=== PATIENT | male | born 1940 | race Caucasian/White ===

== ENCOUNTER 2018-01-07 06:31 | Inpatient (IN) | payer OTHER, MEDICARE ==
[~2018-01-07] VITALS: Ht 172.7 cm; Wt 69.1 kg
[2018-01-07] VITALS (21 sets, daily range): BP systolic 103–175; BP diastolic 51–94; PULSE 58–110; RESP 14–30; TEMP 98.3–99; O2SAT 96–100
[2018-01-07] MEDS ORDERED: FERR325T18 PO (07:06)
[2018-01-07] MEDS ORDERED: ALPR.25 PO (07:06)
[2018-01-07] MEDS ORDERED: METO-426 PO (07:06)
[2018-01-07] MEDS ORDERED: METH1TAB29 PO (07:06)
[2018-01-07] MEDS ORDERED: CEFD300C PO (07:06)
[2018-01-07] MEDS ORDERED: BENA20TA4 PO (07:06)
[2018-01-07] MEDS ORDERED: DOXY8SUS PO (07:06)
[2018-01-07] MEDS ORDERED: ASPI-516 CHEW (07:06)
[2018-01-07] MEDS ORDERED: CLOP75TA PO (07:06)
[2018-01-07] MEDS ORDERED: MAGN400T2 PO (07:06)
[2018-01-07] MEDS ORDERED: TERA10CA3 PO (07:06)
[2018-01-07] MEDS ORDERED: SIMV20TA PO (07:06)
[2018-01-07] MEDS ORDERED: MIRTA15 PO (07:06)
[2018-01-07] MEDS ORDERED: ALLO300T2 PO (07:06)
--- NOTE | 2018-01-07 07:40 | PD ---
HPI Chief Complaint: Respiratory Distress Time Seen by Provider: 07:36 Travel History International Travel<30 days: No Contact w/Intl Traveler<30days: No Traveled to known affect area: No History of Present Illness HPI 77-year-old male patient presents to the ER from a facility, apparently they state that he was having low saturations and respiratory distress according to facility. Patient is obtunded not able to give me any further history. They apparently have put on a breathing mass that his saturations went up to 99%. Modifying Factors: None Associated Signs & Symptoms: Altered mental status, hypoxia, low saturations Risk Factors: None PFSH Past Medical History Medical History: Unable to Obtain Past Surgical History Surgical History: Unable to Obtain Social History Alcohol Use: No (LORENE) Tobacco Use: No Allergies-Medications (Allergen,Severity, Reaction): Coded Allergies: No Known Allergies (Unverified , 01/07/18) Reported Meds & Prescriptions Reported Meds & Active Scripts Active Reported Xanax (Alprazolam) 0.25 Mg Tab 0.25 Mg PO Q12HR PRN Metoprolol Tartrate 75 Mg Tab 75 Mg PO BID Medrol (Methylprednisolone) 2 Mg Tab 2 Mg PO DAILY Ferrous Sulfate 325 Mg (65 Mg Iron) Tablet 325 Mg PO BIDPC Doxycycline Monohydrate Liq 25 Mg/5 Ml Susp 100 Mg PO BID Cefdinir 300 Mg Cap 300 Mg PO BID Terazosin (Terazosin HCl) 10 Mg Cap 10 Mg PO HS Simvastatin 20 Mg Tab 20 Mg PO DAILY Mirtazapine 15 Mg Tab 15 Mg PO HS Magnesium Oxide 400 Mg Tab 400 Mg PO DAILY Clopidogrel (Clopidogrel Bisulfate) 75 Mg Tab 75 Mg PO DAILY Benazepril-Hydrochlorothiazide 20-25 Mg Tab 1 Tab PO DAILY Aspirin 81 Mg Chew 81 Mg CHEW DAILY Allopurinol 300 Mg Tab 300 Mg PO DAILY Review of Systems ROS Limitations: Altered Mental Status Physical Exam Narrative GENERAL: Well-developed elderly white male patient currently disoriented, lethargic, not able to give me much information. SKIN: Focused skin assessment warm/dry. HEAD: Atraumatic. Normocephalic. EYES: Pupils small, equal and round. No scleral icterus. No injection or drainage. ENT: No nasal bleeding or discharge. Mucous membranes pink and moist. NECK: Trachea midline. No JVD. CARDIOVASCULAR: Regular rate and rhythm. No murmur appreciated. RESPIRATORY: Mild accessory muscle use. Coarse bilaterally. Breath sounds equal bilaterally. GASTROINTESTINAL: Abdomen soft, non-tender, nondistended. Hepatic and splenic margins not palpable. MUSCULOSKELETAL: No obvious deformities. No clubbing. No cyanosis. No edema. NEUROLOGICAL: Lethargic, disoriented not following commands. Face is symmetrical, pupils are small, equal, poorly reactive to light bilaterally.. PSYCHIATRIC: Unable to assess Data Data Last Documented VS Vital Signs Date Time Temp Pulse Resp B/P (MAP) Pulse Ox O2 Delivery O2 Flow Rate FiO2 01/07/18 09:23 100 100 01/07/18 09:21 100 26 175/94 (121) Ventilator 01/07/18 09:11 15.00 01/07/18 06:36 98.3 Orders Orders Electrocardiogram (01/07/18 07:19) Ammonia (01/07/18 07:19) Complete Blood Count With Diff (01/07/18 07:19) Comprehensive Metabolic Panel (01/07/18 07:19) Troponin I (01/07/18 07:19) Urinalysis - C+S If Indicated (01/07/18 07:19) Lactic Acid Sepsis Protocol (01/07/18 07:19) Blood Culture (01/07/18 07:19) Chest, Single Ap (01/07/18 07:19) Blood Glucose (01/07/18 07:19) Ecg Monitoring (01/07/18 07:19) Iv Access Insert/Monitor (01/07/18 07:19) Oximetry (01/07/18 07:19) B-Type Natriuretic Peptide (01/07/18 08:02) Arterial Blood Gas (Abg) (01/07/18 08:02) Ct Brain W/O Iv Contrast(Rout) (01/07/18 08:02) Urinary Catheter Insert/Apply (01/07/18 08:34) Chest, Single Ap (01/07/18 08:44) Arterial Blood Gas (Abg) (01/07/18 08:44) Etomidate Inj (Amidate Inj) (01/07/18 08:45) Succinylcholine Inj (Quelicin Inj) (01/07/18 08:45) Sodium Chloride 0.9% Flush (Ns Flush) (01/07/18 08:45) Piperacil-Tazo 4.5 Gm Premix (Zosyn 4.5 (01/07/18 09:13) Azithromycin Inj (Zithromax Inj) (01/07/18 09:13) Sodium Chlor 0.9% 1000 Ml Inj (Ns 1000 M (01/07/18 09:45) Ct Thorax/ Chest Wo Iv Contras (01/07/18 09:43) Admit Order (Ed Use Only) (01/07/18 09:43) Propofol 200 Mg/20 Ml Inj (Diprivan 200 (01/07/18 09:45) Labs Laboratory Tests Test 01/07/18 06:40 01/07/18 08:01 01/07/18 08:30 01/07/18 09:10 White Blood Count 17.7 TH/MM3 Red Blood Count 3.02 MIL/MM3 Hemoglobin 9.2 GM/DL Hematocrit 28.9 % Mean Corpuscular Volume 95.7 FL Mean Corpuscular Hemoglobin 30.4 PG Mean Corpuscular Hemoglobin Concent 31.8 % Red Cell Distribution Width 17.9 % Platelet Count 524 TH/MM3 Mean Platelet Volume 9.1 FL Neutrophils (%) (Auto) 91.5 % Lymphocytes (%) (Auto) 1.6 % Monocytes (%) (Auto) 6.3 % Eosinophils (%) (Auto) 0.2 % Basophils (%) (Auto) 0.4 % Neutrophils # (Auto) 16.2 TH/MM3 Lymphocytes # (Auto) 0.3 TH/MM3 Monocytes # (Auto) 1.1 TH/MM3 Eosinophils # (Auto) 0.0 TH/MM3 Basophils # (Auto) 0.1 TH/MM3 CBC Comment AUTO DIFF Differential Total Cells Counted 100 Neutrophils % (Manual) 81 % Band Neutrophils % 9 % Monocytes % 5 % Neutrophils # (Manual) 16.8 TH/MM3 Metamyelocytes 4 % Myelocytes 1 % Nucleated Red Blood Cells 5 /100 WBC Differential Comment FINAL DIFF MANUAL Toxic Granulation 2+ Platelet Estimate HIGH Platelet Morphology Comment NORMAL Blood Urea Nitrogen 37 MG/DL Creatinine 1.82 MG/DL Random Glucose 91 MG/DL Total Protein 5.8 GM/DL Albumin 2.3 GM/DL Calcium Level 8.9 MG/DL Alkaline Phosphatase 129 U/L Aspartate Amino Transf (AST/SGOT) 32 U/L Alanine Aminotransferase (ALT/SGPT) 28 U/L Total Bilirubin 0.2 MG/DL Sodium Level 146 MEQ/L Potassium Level 4.2 MEQ/L Chloride Level 104 MEQ/L Carbon Dioxide Level 32.7 MEQ/L Anion Gap 9 MEQ/L Estimat Glomerular Filtration Rate 36 ML/MIN Troponin I 0.28 NG/ML Lactic Acid Level 0.8 mmol/L Ammonia 36 MCMOL/L Blood Gas Puncture Site RT RADIAL Blood Gas Patient Temperature 98.6 Blood Gas HCO3 34 mmol/L Blood Gas Base Excess 5.0 mmol/L Blood Gas Oxygen Saturation 92 % Arterial Blood pH 7.14 Arterial Blood Partial Pressure CO2 103 mmHg Arterial Blood Partial Pressure O2 89 mmHG Arterial Blood Oxygen Content 11.6 Vol % Arterial Blood Carboxyhemoglobin 1.0 % Arterial Blood Methemoglobin 0.6 % Blood Gas Hemoglobin 8.9 G/DL Oxygen Delivery Device BiPAP Blood Gas Liter Flow 15 L/M Blood Gas Ventilator Setting NR Urine Color YELLOW Urine Turbidity HAZY Urine pH 5.5 Urine Specific [place] 1.019 Urine Protein 100 mg/dL Urine Glucose (UA) NEG mg/dL Urine Ketones TRACE mg/dL Urine Occult Blood TRACE Urine Nitrite NEG Urine Bilirubin NEG Urine Urobilinogen LESS THAN 2.0 MG/DL Urine Leukocyte Esterase NEG Urine RBC LESS THAN 1 /hpf Urine WBC 2 /hpf Urine Squamous Epithelial Cells 1 /hpf Urine Bacteria OCC /hpf Urine Hyaline Casts 9 /lpf Urine Granular Casts 3 /lpf Urine Mucus FEW /lpf Microscopic Urinalysis Comment CATH-CULTURE IND MDM Medical Decision Making Medical Screen Exam Complete: Yes Emergency Medical Condition: Yes Medical Record Reviewed: Yes Interpretation(s) EKG shows sinus tachycardia rate of 100 bpm with no signs of acute ST elevations or depressions. Laboratory Tests Test 01/07/18 06:40 01/07/18 08:01 01/07/18 08:30 01/07/18 09:10 White Blood Count 17.7 TH/MM3 (4.0-11.0) Red Blood Count 3.02 MIL/MM3 (4.50-5.90) Hemoglobin 9.2 GM/DL (13.0-17.0) Hematocrit 28.9 % (39.0-51.0) Mean Corpuscular Hemoglobin Concent 31.8 % (32.0-36.0) Red Cell Distribution Width 17.9 % (11.6-17.2) Platelet Count 524 TH/MM3 (150-450) Neutrophils (%) (Auto) 91.5 % (16.0-70.0) Lymphocytes (%) (Auto) 1.6 % (9.0-44.0) Neutrophils # (Auto) 16.2 TH/MM3 (1.8-7.7) Lymphocytes # (Auto) 0.3 TH/MM3 (1.0-4.8) Monocytes # (Auto) 1.1 TH/MM3 (0-0.9) Neutrophils % (Manual) 81 % (16-70) Band Neutrophils % 9 % (0-6) Neutrophils # (Manual) 16.8 TH/MM3 (1.8-7.7) Metamyelocytes 4 % (0-1) Myelocytes 1 % (0-0) Nucleated Red Blood Cells 5 /100 WBC (0-0) Toxic Granulation 2+ (NORMAL) Platelet Estimate HIGH (NORMAL) Blood Urea Nitrogen 37 MG/DL (7-18) Creatinine 1.82 MG/DL (0.60-1.30) Total Protein 5.8 GM/DL (6.4-8.2) Albumin 2.3 GM/DL (3.4-5.0) Alkaline Phosphatase 129 U/L (45-117) Sodium Level 146 MEQ/L (136-145) Carbon Dioxide Level 32.7 MEQ/L (21.0-32.0) Estimat Glomerular Filtration Rate 36 ML/MIN (>89) Troponin I 0.28 NG/ML (0.02-0.05) Ammonia 36 MCMOL/L (11-32) Blood Gas HCO3 34 mmol/L (22-26) Blood Gas Base Excess 5.0 mmol/L (-2-2) Arterial Blood pH 7.14 (7.380-7.420) Arterial Blood Partial Pressure CO2 103 mmHg (38-42) Arterial Blood Oxygen Content 11.6 Vol % (12.0-20.0) Blood Gas Hemoglobin 8.9 G/DL (12.0-16.0) Urine Turbidity HAZY (CLEAR) Urine Protein 100 mg/dL (NEG-TRACE) Urine Ketones TRACE mg/dL (NEG) Urine Occult Blood TRACE (NEG) Urine Bacteria OCC /hpf (NONE) Urine Mucus FEW /lpf (OCC) Differential Diagnosis Altered mental status, respiratory distress: COPD exacerbation versus pneumonia versus sepsis versus dehydration versus metabolic issues versus overmedication Narrative Course On initial evaluation, I see 3 round medication patches on the patient's right shoulder and chest wall, there were labeled with the #135. It is unclear how long these have been there and have removed the metastases precaution since they could be medication patches that is causing some his disorientation. Patient's daughter and arrived in the ER and states that he had recently been released from [facility] to rehab 36 hours before, apparently had been admitted for pneumonia, patient has T-cell lymphoma that is currently being evaluated. He had a port put in 3 weeks ago and apparently had anemia as well. He has been doing poorly at the rehab facility, they did not think that he was completely over his pneumonia. Chest x-ray returned showing bilateral pneumonia. His ABG is very concerning for hypercapnia and shows respiratory acidosis. Patient was intubated for airway protection. IV antibiotics were initiated. Case was discussed with Dr. Gonzalez for admission for further treatment in the critical care unit. Aggregate critical care time was 35 minutes. Time to perform other separately billable procedures was not included in the critical care time. My time did not include minutes spent treating any other patients simultaneously or on activities that did not directly contribute to the patient's treatment. The services I provided to this patient were to treat and/or prevent clinically significant deterioration that could result in: Respiratory arrest, septic shock , I provided critical care services requiring my management, as noted below: Chart data review, documentation time, medication orders and management, vital sign assessments/reviewing monitor data, ordering and reviewing lab tests, ordering and interpreting/reviewing x-rays and diagnostic studies, care of the patient and discussion of the patient with the admitting physicians. Procedures Procedure Narrative After the risks and benefits were discussed the following procedure was performed: INTUBATION: The patient was put in optimal position for the procedure. Rapid sequence intubation was initiated by me using 20 milligrams of etomidate IV and 100 milligrams of succinylcholine IV. The patient was intubated with a 7.5 cuffed endotracheal tube. Tube placement was confirmed by visualization of the tube and balloon passing through the cords, capnometry and subsequent chest x- ray. Breath sounds were equal and well aerated bilaterally postintubation. No breath sounds over stomach. Patient tolerated procedure well. Diagnosis Primary Impression: Bilateral pneumonia Additional Impressions: Severe sepsis Respiratory acidosis Endotracheally intubated Admitting Information Admitting Physician Requests: Admit Soontharothai,Rewadee MD Jan 07, 2018 07:40
--- NOTE | 2018-01-07 07:51 | RADRPT ---
EXAM DATE/TIME: 01/07/2018 07:26 [facility] COMPARISON: No previous studies available for comparison. INDICATIONS : Shortness of breath. MEDICAL HISTORY : None. SURGICAL HISTORY : Infusaport. ENCOUNTER: Initial ACUITY: 1 day PAIN SCORE: Non-responsive. LOCATION: Bilateral chest FINDINGS: Left subclavian Ryesbi-u-Clww has its tip in junction superior vena cava and right atrium. Bibasilar patchiness is noted consistent with probable pneumonia. Small right pleural effusion is noted the hea rt is mildly prominent. CONCLUSION: 1. Bibasilar patchiness consistent with probable pneumonia. Clinical correlation is recommended. 2. Small right pleural effusion. 3. Mild cardiomegaly. Fabian Villegas MD on January 07, 2018 at 7:41 Board Certified Radiologist. This report was verified electronically.
[2018-01-07 08:15] LABS: AUTOMATED NEUTROPHIL # 16.2 TH/MM3 (1.8-7.7); BASOPHIL # 0.1 TH/MM3 (0-0.2); BASOPHIL % 0.4 % (0.0-2.0); EOSINOPHIL % 0.2 % (0.0-4.0); HEMATOCRIT 28.9 % (39.0-51.0); HEMOGLOBIN 9.2 GM/DL (13.0-17.0); LYMPH % 1.6 % (9.0-44.0); LYMPHOCYTE # 0.3 TH/MM3 (1.0-4.8); MEAN CELL VOLUME 95.7 FL (80.0-100.0); MEAN CORPUSCULAR HEMOGLOBIN 30.4 PG (27.0-34.0); MEAN CORPUSCULAR HGB CONC 31.8 % (32.0-36.0); MEAN PLATELET VOLUME 9.1 FL (7.0-11.0); MONO % 6.3 % (0.0-8.0); MONOCYTE # 1.1 TH/MM3 (0-0.9); NEUT % 91.5 % (16.0-70.0); PLATELET COUNT 524 TH/MM3 (150-450); RED BLOOD COUNT 3.02 MIL/MM3 (4.50-5.90); RED CELL DISTRIBUTION WIDTH 17.9 % (11.6-17.2); WHITE BLOOD COUNT 17.7 TH/MM3 (4.0-11.0)
[2018-01-07 08:36] LABS: ALBUMIN 2.3 GM/DL (3.4-5.0); AST (GOT) 32 U/L (15-37); BICARBONATE 32.7 MEQ/L (21.0-32.0); BLOOD UREA NITROGEN 37 MG/DL (7-18); CALCIUM 8.9 MG/DL (8.5-10.1); CHLORIDE 104 MEQ/L (98-107); CREATININE 1.82 MG/DL (0.60-1.30); GLOMERULAR FILTRATION RATE 36 ML/MIN (>89); GLUCOSE,RANDOM 91 MG/DL (74-106); SODIUM (NA) 146 MEQ/L (136-145)
[2018-01-07 08:40] LABS: ALKALINE PHOSPHATASE 129 U/L (45-117); ALT (GPT) 28 U/L (12-78); TOTAL BILIRUBIN ADULT 0.2 MG/DL (0.2-1.0); TOTAL PROTEIN 5.8 GM/DL (6.4-8.2); TROPONIN I 0.28 NG/ML (0.02-0.05)
[2018-01-07] MEDS ORDERED: SUCCINYLCHOLINE CHLORIDE 200 MG/10 ML VIAL IV PUSH ONE (08:45)
[2018-01-07] MEDS ORDERED: ETOMIDATE 20 MG/10 ML VIAL IVP ONE (08:45)
[2018-01-07 08:58] LABS: BANDS 9 % (0-6); CORRECTED NUCLEATED RBC 5 /100 WBC (0-0); METAMYELOCYTES 4 % (0-1); MONOCYTES 5 % (0-8); MYELOCYTES 1 % (0-0); NEUTROPHIL # MANUAL DIFF 16.8 TH/MM3 (1.8-7.7); NUCLEATED RED BLOOD CELL 5 (0-0); POLYS (SEG NEUTROPHILS) 81 % (16-70); TOXIC GRANULATION 2+ (NORMAL)
[2018-01-07] MEDS: SODIUM CHLORIDE 0.9% FLUSH 10 ML FLUSH IVF PRN (09:05)
[2018-01-07] MEDS ORDERED: PIPERACIL-TAZO 4.5 GM PREMIX 100 ML IV STA (09:13)
[2018-01-07] MEDS ORDERED: AZITHROMYCIN INJ 500 MG in SODIUM CHLOR 0.9% 250 ML INJ 250 ML IV STA (09:13)
--- NOTE | 2018-01-07 09:40 | RADRPT ---
EXAM DATE/TIME: 01/07/2018 09:26 [facility] COMPARISON: CHEST SINGLE AP, January 07, 2018, 7:26. INDICATIONS : Post intubation. MEDICAL HISTORY : None. SURGICAL HISTORY : Infusaport. ENCOUNTER: Subsequent ACUITY: 1 day PAIN SCORE: Non-responsive. LOCATION: Bilateral chest FINDINGS: An endotracheal tube has its tip 3 cm above the nelson. A nasogastric has in the stomach. Left subcla vian Vweoft-n-Zwnu has its tip in the superior vena cava. Small right pleural effusion is noted. Biba silar atelectasis and/or infiltrates are stable. The heart is enlarged. CONCLUSION: Small right pleural effusion. Bibasilar atelectasis and/or infiltrate. Cardiomegaly. Fabian Villegas MD on January 07, 2018 at 9:36 Board Certified Radiologist. This report was verified electronically.
[2018-01-07] MEDS ORDERED: DEXTROSE 50% IN WATER 50 ML VIAL(D50) IV PUSH PRN (09:45)
[2018-01-07] MEDS ORDERED: PROPOFOL 200 MG/20 ML AMP IV ONE (09:45)
[2018-01-07] MEDS ORDERED: GLUCAGON 1 MG/ML VIAL OTHER PRN (09:45)
[2018-01-07] MEDS ORDERED: CHLORHEXIDINE GLUCONATE 2 % 1 PACK (2 CLOTHS) TOP PRN (09:45)
[2018-01-07] MEDS ORDERED: SENNOSIDES 8.6 MG TAB PO PRN (09:45)
[2018-01-07] MEDS ORDERED: SODIUM CHLOR 0.9% 1000 ML INJ 1,000 ML IV ONE ×2 (09:45→10:15)
[2018-01-07] MEDS ORDERED: MAGNESIUM HYDROXIDE SUSP 30 ML CUP PO PRN (09:45)
[2018-01-07] MEDS: FAMOTIDINE 20 MG/2 ML VIAL IV PUSH SCH ×2 (09:45→19:59)
[2018-01-07] MEDS ORDERED: VANCOMYCIN INJ 1,000 MG in SODIUM CHLOR 0.9% 250 ML INJ 250 ML IV SCH (09:45)
[2018-01-07] MEDS ORDERED: MISCELLANEOUS NURSING INFORMATION XX SCH (09:45)
[2018-01-07] MEDS ORDERED: BISACODYL 10 MG SUPP RECTAL PRN (09:45)
[2018-01-07] MEDS ORDERED: LACTULOSE SYRUP 20 GM/30 ML CUP PO PRN (09:45)
[2018-01-07] MEDS ORDERED: SODIUM CHLOR 0.9% 1000 ML INJ 1,000 ML IV SCH (10:00)
[2018-01-07] MEDS: INSULIN NovoLIN REGULAR SUPPLEMENTAL SCALE SQ SCH ×3 (10:00→22:00)
[2018-01-07 10:07] LABS: BACTERIA, URINE OCC /hpf; BILIRUBIN, URINE NEG (NEG); BLOOD, URINE TRACE (NEG); GLUCOSE,URINE NEG (NEG); HYALINE CAST, URINE 9 /lpf (RARE); KETONE, URINE TRACE mg/dL (NEG); MUCUS URINE FEW /lpf (OCC); NITRITE,URINE NEG (NEG); PH, URINE 5.5 (5.0-8.5); SQUAMOUS EPITHELIAL CELL URINE 1 /hpf (0-5); URINE COLOR YELLOW (YELLW/STRAW); URINE LEUKOCYTE ESTERASE NEG (NEG)
[2018-01-07] MEDS: RESP: ALBUTEROL 2.5 MG/IPRATROPIUM 0.5 MG NEB (SCH) INH ×3 (10:23→21:00)
[2018-01-07] MEDS ORDERED: Vancomycin Consult Pharmacy 1 EA OTHER SCH (10:30)
[2018-01-07] MEDS ORDERED: VANCOMYCIN 1,500 MG/NS 500 ML IV ONE ×2 (10:30)
[2018-01-07] MEDS ORDERED: ASPIRIN 325 MG TAB PO ONE (11:00)
--- NOTE | 2018-01-07 11:06 | MH ---
cc: Juju Mendez MD DATE OF ADMISSION: 01/07/2018 HISTORY OF PRESENT ILLNESS: The patient is a 77-year-old male with a past medical history of coronary artery disease, hypertension, hyperlipidemia, BPH and lymphoma, on radiation treatment and chemotherapy. He presented to [facility] ED from a rehab facility for lethargy, hypoxemia, and low saturation. Initially, he was placed on a BiPAP and ABG was performed, which showed acute hypercapnic respiratory failure with a pH of 7.14, CO2 of 103, PaO2 of 89, bicarbonate 34, and saturation 92%. He was subsequently intubated with etomidate, succinylcholine, and placed on full mechanical ventilation. A chest x-ray in the ER showed bibasilar patchiness and small right pleural effusion. According to the patient's family, he underwent a blood transfusion on 01/12/2018 after he received his first cycle of chemotherapy and then shortly after he was readmitted in [place] for fever, pneumonia and sepsis. The patient was eventually discharged to a rehab facility. There is no history of home oxygen or use of bronchodilators. The patient quit smoking in October and used to smoke a pack and half a day for about 60 years. His laboratory data is significant for leukocytosis with a WBC of 17.7, acute kidney injury with a creatinine of 1.82. His lactic acid level measured at 0.8. Chest x-ray post-intubation showed ET tube above the nelson, left subclavian Infusaport in place, bibasilar atelectasis and/or infiltrate and small right pleural effusion. When seen, the patient is sedated with Diprivan and on full mechanical ventilation. His blood pressure 175/94 with a pulse of 100. The patient is afebrile. PAST MEDICAL HISTORY: Significant for coronary artery disease, hypertension, hyperlipidemia, BPH, and lymphoma. PAST SURGICAL HISTORY: Previous 3 coronary stent placements approximately 4 years ago, previous TURP, previous bone marrow biopsy, and previous teeth removal. FAMILY HISTORY: Father with lymphoma at age 78. SOCIAL HISTORY: The patient quit smoking in October, used to smoke a pack and half a day for about 60 years. He quit drinking 8 years ago. ALLERGIES: NO KNOWN DRUG ALLERGIES. MEDICATIONS: Reported medications include Xanax, Lopressor, Medrol Dosepak, ferrous sulfate, simvastatin, magnesium, plavix, and aspirin. REVIEW OF SYSTEMS: As per HPI. Rest of review of systems limited, as the patient is intubated. PHYSICAL EXAMINATION: GENERAL: This is a 77-year-old male, intubated for respiratory failure. VITAL SIGNS: Temperature 98.3, pulse of 100, respiratory rate 26, blood pressure 175/94, saturation 100%. Vent settings: PRVC, rate of 14, tidal volume 500, I-time 1.0, PEEP of 5, FiO2 of 100%. HEENT: Atraumatic, normocephalic. Pupils are equal, round, reactive to light and accommodation. Extraocular muscles intact. Conjunctivae pink. Nonicteric sclerae. Oral mucosa within normal. NECK: Supple. No JVD, adenopathy, or thyromegaly. Trachea in the midline. CARDIOVASCULAR: Tachycardic. Normal S1, S2. No murmurs, rubs or gallops noted. LUNGS: Bilateral equal air entry with a few coarse breath sounds. ABDOMEN: Soft, nontender. No distention. Positive bowel sounds. EXTREMITIES: No cyanosis, clubbing, or edema. NEUROLOGIC: Intubated and sedated. LABORATORY DATA: ABG on BiPAP showed a pH of 7.14, CO2 of 103, PaO2 of 89, saturation 92%. Sodium 146, potassium 4.2, chloride 104, CO2 of 32, BUN 37, creatinine 1.82, glucose 91. Lactic acid 0.8. Ammonia level 36. Troponin 0.28. Albumin 2.3. WBC 17.7, hemoglobin 9.2, hematocrit 28, platelet count 524. Urinalysis: Occasional bacteria, trace ketones, negative leukocyte esterase, negative nitrite. RADIOGRAPHIC STUDIES: Chest x-ray showed bibasilar atelectasis and/or infiltrates with small effusion. IMPRESSION: 1. Acute hypoxemic and hypercapnic respiratory failure. 2. Healthcare-associated pneumonia. 3. Acute kidney injury. 4. Lymphoma. 5. Elevated troponins. 6. Leukocytosis. 7. Anemia. 8. History of hypertension. 9. History of coronary artery disease. 10. Hyperlipidemia. 11. History of benign prostatic hyperplasia. RECOMMENDATIONS: 1. Continue with Diprivan infusion for sedation and vent synchrony. Daily sedation vacation when appropriate. The patient is scheduled to undergo scan of the brain ordered by ED. 2. Continue with vent support and maintain sats above 92%. 3. Bronchodilators in the form of DuoNeb q.[address] on Solu-Medrol 40 mg IV q.12 hours. 4. We will initiate ICU vent bundle. Increase respiratory rate to 18 and check ABG post-intubation. 5. We will obtain a CT scan of the chest without contrast for further evaluation of pulmonary parenchyma. 6. Monitor renal function, I's and O's and avoid nephrotoxins. Electrolyte replacement as needed. We will give 1 liter bolus of NS followed by maintenance fluids D5 NS at 100 mL an hour. 7. Place on Pepcid 10 mg IV q.12 hours. We will consult GI service as the patient noted to have coffee-ground emesis and he received blood transfusions back on 12/23/2017. We will keep him n.p.o. for now and continue with IV fluids as stated above. 8. Monitor CBC and will check a coagulation profile. Transfuse if hemoglobin less than 7. 9. Monitor cardiac enzymes with troponins and we will obtain a 2D echo to evaluate LV function. We will give 1 dose of aspirin. 10. Place on broad spectrum antibiotics in form of vancomycin, Zosyn and azithromycin. Monitor for signs of infection which include fever and WBC. Follow up on blood cultures. In addition, we will check sputum culture with Gram stain, Strep pneumonia, legionella urinary antigen. Check nasal washing to rule out influenza. 11. Consult Medical Oncology service as the patient recently had chemotherapy and radiation treatment. We will obtain CT abdomen and pelvis without contrast. 12. Place on sliding scale insulin with Accu-Cheks for glycemic control as the patient will be on IV steroids. 13. Gastrointestinal prophylaxis with Pepcid and DVT prophylaxis with SCDs for now. 14. Lines: He has a left subclavian Infusaport and peripheral IVs. 15. Further recommendations will be based on hospital course. MD PIERCE Carter/JP , 10:30 AM , 11:05 AM
--- NOTE | 2018-01-07 11:21 | RADRPT ---
EXAM DATE/TIME: 01/07/2018 10:53 [facility] COMPARISON: No previous studies available for comparison. INDICATIONS : Altered mental status, hypoxia. RADIATION DOSE: 47.66 CTDIvol (mGy) MEDICAL HISTORY : Non-responsive. SURGICAL HISTORY : Non-responsive. ENCOUNTER: Initial ACUITY: 1 day PAIN SCALE: Non-responsive LOCATION: cranial TECHNIQUE: Multiple contiguous axial images were obtained of the head. Using automated exposure control and adj ustment of the mA and/or kV according to patient size, radiation dose was kept as low as reasonably a chievable to obtain optimal diagnostic quality images. DICOM format image data is available electro nically for review and comparison. FINDINGS: CEREBRUM: The ventricles are normal for age. No evidence of midline shift, mass lesion, hemorrhage or acute in farction. No extra-axial fluid collections are seen. POSTERIOR FOSSA: The cerebellum and brainstem are intact. The 4th ventricle is midline. The cerebellopontine angle i s unremarkable. EXTRACRANIAL: The visualized portion of the orbits is intact. Moderate mucosal thickening is noted involving the ma xillary and ethmoid sinuses bilaterally. SKULL: The calvaria is intact. No evidence of skull fracture. CONCLUSION: 1. No acute intracranial abnormality. 2. Moderate mucosal thickening involving the maxillary and ethmoid sinuses bilaterally. Fabian Villegas MD on January 07, 2018 at 11:16 Board Certified Radiologist. This report was verified electronically.
--- NOTE | 2018-01-07 11:29 | RADRPT ---
EXAM DATE/TIME: 01/07/2018 10:59 [facility] COMPARISON: CT THORAX W/O CONTRAST, January 07, 2018, 10:59. INDICATIONS : Coffee ground emesis, leukocytosis. ORAL CONTRAST: No oral contrast ingested. RADIATION DOSE: 13.68 CTDIvol (mGy) ; Combined studies - Thorax/Abdomen/Pelvis MEDICAL HISTORY : Lymphoma. SURGICAL HISTORY : Non-responsive. ENCOUNTER: Initial ACUITY: 1 day PAIN SCALE: Non-responsive LOCATION: lower quadrant TECHNIQUE: Volumetric scanning of the abdomen and pelvis was performed. Using automated exposure control and ad justment of the mA and/or kV according to patient size, radiation dose was kept as low as reasonably achievable to obtain optimal diagnostic quality images. DICOM format image data is available electro nically for review and comparison. FINDINGS: LOWER LUNGS: There is a 7 mm and noncalcified nodule within the left lower lobe laterally. Bibasilar atelectasis i s noted. Small right pleural effusion is noted. LIVER: There is a lobulated low density lesion within the right lobe of liver measuring 4.1 x 2.6 cm which i s indeterminate on this unenhanced examination. Outpatient MRI of the abdomen with contrast may be h elpful for further assessment of this finding. There is no dilation of the biliary tree. Sludge layer s within the gallbladder. SPLEEN: Normal size without lesion. PANCREAS: Within normal limits. KIDNEYS: Normal in size and shape. There is no solid mass, stone, or hydronephrosis. There is a 4 cm lower po le right renal cyst. ADRENAL GLANDS: Within normal limits. VASCULAR: There is no aortic aneurysm. BOWEL/MESENTERY: Uncomplicated colonic diverticulosis is noted. No acute diverticulitis is noted. ABDOMINAL WALL: Within normal limits. RETROPERITONEUM: There is no lymphadenopathy. BLADDER: The bladder is collapsed and contains a Lugo catheter. REPRODUCTIVE: The prostate gland is enlarged. INGUINAL: There is no lymphadenopathy or hernia. MUSCULOSKELETAL: Degenerative changes and scoliosis of the thoracolumbar spine are noted. CONCLUSION: 1. Small right pleural effusion with adjacent compressive atelectasis. 2. 7 mm noncalcified nodule within the left lower lobe which is indeterminate. 3. 4.1 x 2.6 cm lobulated low density lesion within the right lobe of liver which is indeterminate on this unenhanced examination. Outpatient MRI of the abdomen with contrast may be helpful for further characterization of this finding. 4. 4 cm lower pole right renal cyst. 5. Degenerative changes and scoliosis of the thoracolumbar spine. 6. Enlarged prostate. 7. Uncomplicated colonic diverticulosis. 8. Gallbladder sludge. Fabian Villegas MD on January 07, 2018 at 11:18 Board Certified Radiologist. This report was verified electronically.
--- NOTE | 2018-01-07 11:43 | RADRPT ---
EXAM DATE/TIME: 01/07/2018 10:59 [place] COMPARISON: No previous studies available for comparison. INDICATIONS : Respiratory distress, hypoxia. RADIATION DOSE: 13.68 CTDIvol (mGy) ; Combined studies - Thorax/Abdomen/Pelvis MEDICAL HISTORY : Lymphoma. SURGICAL HISTORY : Non-responsive. ENCOUNTER: Initial ACUITY: 1 day PAIN SCALE: Non-responsive LOCATION: chest TECHNIQUE: Volumetric scanning of the chest was performed. Using automated exposure control and adjustment of t he mA and/or kV according to patient size, radiation dose was kept as low as reasonably achievable to obtain optimal diagnostic quality images. DICOM format image data is available electronically for r eview and comparison. Follow-up recommendations for detected pulmonary nodules are based at a minimum on nodule size and pa tient risk factors according to Fleischner Society Guidelines. FINDINGS: A small right pleural effusion with adjacent compressive atelectasis is noted. Tiny left pleural effu erick is noted. There is a 7 mm noncalcified nodule within the left lower lobe laterally which is inde terminate. Followup CT of the chest in 6 months would be helpful to confirm stability of this finding . Scattered discoid atelectasis is noted bilaterally. There is a right axillary fluid collection xiomara uring 6.0 x 3.1 x 4.3 cm consistent with possible seroma if the patient has had surgery in this locat ion. Scattered right axillary lymphadenopathy is noted with the largest lymph node measuring 16 mm. C oronary artery calcifications are noted. No mediastinal, hilar or left axillary lymphadenopathy is no latricia. Degenerative changes are noted throughout the thoracic spine. CONCLUSION: 1. Small right pleural effusion with adjacent compressive atelectasis. 2. Tiny left pleural effusion. 3. 7 mm noncalcified nodule within the left lower lobe laterally which is indeterminate. Followup CT the chest in 6 months would be helpful to confirm stability of this finding. 4. Scattered discoid atelectasis bilaterally. 5. Right axillary fluid collection measuring 6.0 x 3.1 x 4.3 cm consistent with possible seroma if th e patient has had surgery in this location. 6. Right axillary lymphadenopathy with the largest lymph node measuring 16 mm. 7. Coronary artery calcifications. Fabian Villegas MD on January 07, 2018 at 11:36 Board Certified Radiologist. This report was verified electronically.
[2018-01-07] MEDS ORDERED: DIATRIZOATE MEGLUM/DIATRIZOATE SOD 9 ML CUP PO ONE (12:00)
--- NOTE | 2018-01-07 13:57 | PD.CONS ---
HPI History of Present Illness This is a 77 year old M with PMH significant for CAD, HTN, hyperlipidemia, BPH, lymphoma on radiation and chemotherapy. Pt currently intubated in [facility], no family present, history obtained through chart review. Pt was brought to the ED from a rehab facility for lethargy and hypoxemia. ABG revealed hypercapnic respiratory failure and therefore required intubated. Pt currently on mechanical ventilation with FiO2 of 100%. Our service has been consulted to evaluate pt for anemia and rule out possibility of GIB. Per RN there has been no reports of GIB. Pt has not had a BM since arrival, OGT to [facility] with no secretions coming out. Unsure if pt has a history of anemia, no previous records from [facility]. According to [facility] notes, pt received a previous blood transfusion after chemo treatment, unknown date. Attempted to call [place], pts spouse listed as contact, however was unable to get in contact with her. Unsure of further history including whether pt has ever had EGD or colonoscopy. (Arlen Medeiros) [facility] Coded Allergies: No Known Allergies (Unverified , 01/07/18) Review of Systems Unable to obtain (Arlen Medeiros) GI Exam Vitals I&O Vital Signs Date Time Temp Pulse Resp B/P (MAP) Pulse Ox O2 Delivery O2 Flow Rate FiO2 01/07/18 11:26 100 100 01/07/18 11:20 95 16 110/62 (78) 100 01/07/18 11:16 100 100 01/07/18 10:44 98 18 157/71 (99) 100 Ventilator 15.00 100 01/07/18 10:25 98 15 135/65 (88) 100 Ventilator 15.00 100 01/07/18 09:23 100 100 01/07/18 09:21 100 26 175/94 (121) 100 Ventilator 100 01/07/18 09:11 106 100 Ventilator 15.00 100 01/07/18 09:00 104 23 137/63 (87) 96 Non-Rebreather 100 01/07/18 08:00 106 30 135/65 (88) 100 Non-Rebreather 100 01/07/18 06:36 98.3 110 24 135/70 (91) 99 Laboratory Test 01/07/18 06:40 01/07/18 08:01 01/07/18 08:30 01/07/18 09:10 White Blood Count 17.7 TH/MM3 Red Blood Count 3.02 MIL/MM3 Hemoglobin 9.2 GM/DL Hematocrit 28.9 % Mean Corpuscular Volume 95.7 FL Mean Corpuscular Hemoglobin 30.4 PG Mean Corpuscular Hemoglobin Concent 31.8 % Red Cell Distribution Width 17.9 % Platelet Count 524 TH/MM3 Mean Platelet Volume 9.1 FL Neutrophils (%) (Auto) 91.5 % Lymphocytes (%) (Auto) 1.6 % Monocytes (%) (Auto) 6.3 % Eosinophils (%) (Auto) 0.2 % Basophils (%) (Auto) 0.4 % Neutrophils # (Auto) 16.2 TH/MM3 Lymphocytes # (Auto) 0.3 TH/MM3 Monocytes # (Auto) 1.1 TH/MM3 Eosinophils # (Auto) 0.0 TH/MM3 Basophils # (Auto) 0.1 TH/MM3 CBC Comment AUTO DIFF Differential Total Cells Counted 100 Neutrophils % (Manual) 81 % Band Neutrophils % 9 % Monocytes % 5 % Neutrophils # (Manual) 16.8 TH/MM3 Metamyelocytes 4 % Myelocytes 1 % Nucleated Red Blood Cells 5 /100 WBC Differential Comment FINAL DIFF MANUAL Toxic Granulation 2+ Platelet Estimate HIGH Platelet Morphology Comment NORMAL Blood Urea Nitrogen 37 MG/DL Creatinine 1.82 MG/DL Random Glucose 91 MG/DL Total Protein 5.8 GM/DL Albumin 2.3 GM/DL Calcium Level 8.9 MG/DL Alkaline Phosphatase 129 U/L Aspartate Amino Transf (AST/SGOT) 32 U/L Alanine Aminotransferase (ALT/SGPT) 28 U/L Total Bilirubin 0.2 MG/DL Sodium Level 146 MEQ/L Potassium Level 4.2 MEQ/L Chloride Level 104 MEQ/L Carbon Dioxide Level 32.7 MEQ/L Anion Gap 9 MEQ/L Estimat Glomerular Filtration Rate 36 ML/MIN Troponin I 0.28 NG/ML Lactic Acid Level 0.8 mmol/L Ammonia 36 MCMOL/L Blood Gas Puncture Site RT RADIAL Blood Gas Patient Temperature 98.6 Blood Gas HCO3 34 mmol/L Blood Gas Base Excess 5.0 mmol/L Blood Gas Oxygen Saturation 92 % Arterial Blood pH 7.14 Arterial Blood Partial Pressure CO2 103 mmHg Arterial Blood Partial Pressure O2 89 mmHG Arterial Blood Oxygen Content 11.6 Vol % Arterial Blood Carboxyhemoglobin 1.0 % Arterial Blood Methemoglobin 0.6 % Blood Gas Hemoglobin 8.9 G/DL Oxygen Delivery Device BiPAP Blood Gas Liter Flow 15 L/M Blood Gas Ventilator Setting NR Urine Color YELLOW Urine Turbidity HAZY Urine pH 5.5 Urine Specific [place] 1.019 Urine Protein 100 mg/dL Urine Glucose (UA) NEG mg/dL Urine Ketones TRACE mg/dL Urine Occult Blood TRACE Urine Nitrite NEG Urine Bilirubin NEG Urine Urobilinogen LESS THAN 2.0 MG/DL Urine Leukocyte Esterase NEG Urine RBC LESS THAN 1 /hpf Urine WBC 2 /hpf Urine Squamous Epithelial Cells 1 /hpf Urine Bacteria OCC /hpf Urine Hyaline Casts 9 /lpf Urine Granular Casts 3 /lpf Urine Mucus FEW /lpf Microscopic Urinalysis Comment CATH-CULTURE IND Date/Time Source Procedure Growth Status 01/07/18 06:50 Blood Peripheral Aerobic Blood Culture Pending Received 01/07/18 06:50 Blood Peripheral Anaerobic Blood Culture Pending Received 01/07/18 10:34 Sputum Endotracheal Gram Stain Pending Received 01/07/18 10:34 Sputum Endotracheal Sputum Culture Pending Received 01/07/18 09:10 Urine Catheterized Urine Urine Culture Pending Received Physical Examination HEENT: Normocephalic; atraumatic CHEST: Respirations synchronized with vent. mechanically ventilated via ETT CARDIAC: RRR ABDOMEN: Soft, nondistended, bowel sounds active EXTREMITIES: No clubbing, cyanosis, or edema. SKIN: Normal; no rash; no jaundice. [employer]: Sedated on Propofol (Arlen Medeiros) Assessment and Plan Plan Assessment: - Anemia- normocytic- No reports of GIB per RN. History limited, I attempted to call [facility] at number listed, pts son answered phone and states Evelina is at the hospital, however no one at bedside during my exam. Pt has never been to [facility] before so unsure of hx of anemia, GIB, EGD, colonoscopy. No BM documented since arrival, OGT to [facility] with no output - Lymphoma- per CCM on chemotherapy and radiation- oncology consult pending. There is note of previous blood transfusion after first round of chemotherapy - Hypercapnic respiratory failure- Mechanically ventilated with 100% FiO2 - Hyperammonemia- ammonia-36- unclear significant. LFTs WNL - Leukocytosis- Azithromycin and Zosyn - Impaired renal function- per attending Plan: - Hemoccult stool - Pt is on 100% FiO2, unstable for endoscopic procedures - Would benefit from endoscopic procedures at some point, timing TBD on clinical course - Will also attempt to contact family for further medical history - Monitor H/H - Notify GI of active bleeding - Oncology consult pending - Further recommendations based on clinical course Pt has been seen and examined by myself and Dr. Grullon and this note is written on her behalf (Arlen Medeiros) Physician Comments seen, examined agree with above no indication of gi bleeding-skin rash on chest/arms (Lia Grullon MD) Arlen Medeiros Jan 07, 2018 13:57 Lia Grullon MD Jan 07, 2018 16:52
[2018-01-07] MEDS: DEXT 5%-NACL 0.9% 1000 ML INJ 1,000 ML IV SCH (16:47)
[2018-01-07] MEDS: PIPERACIL-TAZO 4.5 GM PREMIX 100 ML IV SCH ×2 (16:47→22:35)
[2018-01-07 16:58] LABS: INTERNATIONAL NORMALIZED RATIO 1.2 RATIO
[2018-01-07] MEDS: PROPOFOL 1000 MG/100 ML INJ 100 ML IV PRN ×2 (18:30→18:31)
[2018-01-07] MEDS: methylPREDNISolone SOD SUCC 40 MG/1 ML VIAL IV PUSH SCH ×2 (18:30→20:00)
[2018-01-07] MEDS: METOPROLOL TARTRATE 25 MG TAB PO SCH (18:33)
--- NOTE | 2018-01-07 19:20 | EKG ---
Date Performed: 01/07/2018 Time Performed: 08:14:53 PTAGE: 77 years EKG: SINUS TACHYCARDIA POSSIBLE RIGHT VENTRICULAR CONDUCTION DELAY NONSPECIFIC ST & T-WAVE ABNOR MALITY ABNORMAL RHYTHM ECG NO PREVIOUS TRACING DOCTOR: Meaghan Brandt Interpretating Date/Time 01/07/2018 19:17:52
--- NOTE | 2018-01-07 19:46 | MB ---
cc: Seb Purvis MD DATE: 01/07/2018 REASON FOR CONSULTATION: Elevated troponin. HISTORY OF PRESENT ILLNESS: The patient is a 77-year-old gentleman who was intubated for acute hypercapnic respiratory failure, troponins were drawn, and thus I was consulted as they were slightly elevated. The patient is currently intubated and there is no family at bedside, so all history is from chart. Apparently, he presented to [facility] from a rehab facility for lethargy, hypoxemia, and initially was placed on BiPAP due to a CO2 of 103; however, he required intubation due to continued deterioration. A chest x-ray showed small pleural effusions and bibasilar atelectasis, but the working diagnosis was pneumonia. PAST MEDICAL HISTORY: Chart history of coronary artery disease with stenting, hypertension, hyperlipidemia, COPD. CURRENT MEDICATIONS: 1. Azithromycin. 2. Lopressor 25 mg q. 12. 3. Zosyn. ALLERGIES: NO KNOWN DRUG ALLERGIES. PHYSICAL EXAMINATION: VITAL SIGNS: Afebrile, pulse 95, respiratory rate 16, BP 110/62, saturating 100 on 40% FiO2. GENERAL: Intubated gentleman in no distress. NECK: No JVD. LUNGS: Decreased breath sounds in all rios. CARDIOVASCULAR: Regular rate and rhythm. No murmurs appreciated. ABDOMEN: Benign. EXTREMITIES: Trace edema bilaterally. LABORATORY DATA: White count 17.7, hematocrit 28.9, platelets 524. Sodium 146, potassium 4.2, chloride 104, bicarbonate 32.7, BUN 37, creatinine 1.82, glucose 91. Ammonia is 36. Troponin 0.28, 0.30. BNP is 664. EKG shows sinus rhythm with nonspecific ST changes. IMPRESSION: Elevated troponin. The patient's elevated troponin is very nonspecific in the setting of respiratory failure and likely this is not consistent with acute coronary syndrome. I will have him undergo an echocardiogram and see if there has been any ischemic workup recently. Once the patient has been medically stabilized, the determination regarding any further ischemic workup can be made at that time. I do not think his slightly elevated BNP represents significant heart failure, as this does seem to be an infectious etiology given the very elevated white count. Of course, should his echocardiogram show significant LV dysfunction our clinical course would change. Further recommendations based on the above. Thank you again for the opportunity to participate in this patient's care. MD Payton Virgen , 04:56 PM , 07:45 PM
[2018-01-07] MEDS: DOCUSATE SODIUM 50 MG/SENNA 8.6 MG TAB PO SCH (20:01)
[2018-01-08] VITALS (28 sets, daily range): BP systolic 134–192; BP diastolic 62–103; PULSE 48–93; RESP 14–22; TEMP 97.4–98.7; O2SAT 0–100
[2018-01-08] MEDS: PROPOFOL 1000 MG/100 ML INJ 100 ML IV PRN (03:12)
[2018-01-08] MEDS: RESP: ALBUTEROL 2.5 MG/IPRATROPIUM 0.5 MG NEB (SCH) INH ×4 (03:53→21:30)
[2018-01-08] MEDS: CHLORHEXIDINE GLUCONATE 2 % 1 PACK (2 CLOTHS) TOP SCH (04:00)
[2018-01-08 04:30] LABS: AUTOMATED NEUTROPHIL # 10.9 TH/MM3 (1.8-7.7); BASOPHIL % 0.4 % (0.0-2.0); EOSINOPHIL % 0.1 % (0.0-4.0); HEMATOCRIT 24.2 % (39.0-51.0); LYMPH % 0.8 % (9.0-44.0); LYMPHOCYTE # 0.1 TH/MM3 (1.0-4.8); MEAN CELL VOLUME 93.2 FL (80.0-100.0); MEAN CORPUSCULAR HEMOGLOBIN 30.7 PG (27.0-34.0); MEAN CORPUSCULAR HGB CONC 32.9 % (32.0-36.0); MEAN PLATELET VOLUME 9.2 FL (7.0-11.0); MONOCYTE # 0.2 TH/MM3 (0-0.9); NEUT % 96.7 % (16.0-70.0); PLATELET COUNT 342 TH/MM3 (150-450); WHITE BLOOD COUNT 11.3 TH/MM3 (4.0-11.0)
[2018-01-08] MEDS: INSULIN NovoLIN REGULAR SUPPLEMENTAL SCALE SQ SCH ×4 (04:43→22:00)
[2018-01-08] MEDS: PIPERACIL-TAZO 4.5 GM PREMIX 100 ML IV SCH (04:43)
[2018-01-08] MEDS: DEXT 5%-NACL 0.9% 1000 ML INJ 1,000 ML IV SCH (04:45)
[2018-01-08 05:06] LABS: ALT (GPT) 20 U/L (12-78); PHOSPHORUS 2.5 MG/DL (2.5-4.9)
[2018-01-08 05:07] LABS: ALBUMIN 1.8 GM/DL (3.4-5.0); AST (GOT) 22 U/L (15-37); BICARBONATE 28.8 MEQ/L (21.0-32.0); BLOOD UREA NITROGEN 39 MG/DL (7-18); CALCIUM 8.4 MG/DL (8.5-10.1); CHLORIDE 107 MEQ/L (98-107); CREATININE 1.94 MG/DL (0.60-1.30); GLOMERULAR FILTRATION RATE 34 ML/MIN (>89); GLUCOSE,RANDOM 200 MG/DL (74-106); MAGNESIUM 1.7 MG/DL (1.5-2.5); SODIUM (NA) 147 MEQ/L (136-145)
[2018-01-08 05:09] LABS: ALKALINE PHOSPHATASE 94 U/L (45-117); TOTAL BILIRUBIN ADULT 0.3 MG/DL (0.2-1.0); TOTAL PROTEIN 4.9 GM/DL (6.4-8.2)
--- NOTE | 2018-01-08 09:19 | PD.CARD.PN ---
Subjective Subjective Remarks Pt still intubated but awake and looks good on cpap Objective Medications Current Medications Medications (Trade) Dose Ordered Sig/Андрей Route Start Time Stop Time Status Last Admin (NS Flush) 2 ml UNSCH PRN IVF 01/07/18 08:45 01/07/18 09:05 Propofol 100 ml @ 4.8 mls/hr TITRATE PRN IV 01/07/18 09:45 01/08/18 03:12 (Pepcid Inj) 10 mg Q12HR IV PUSH 01/07/18 09:45 01/07/18 19:59 (Duoneb Neb) 1 ampule Q6HR NEB INH 01/07/18 10:00 01/08/18 08:09 Miscellaneous Information 1 Q361D XX 01/07/18 09:45 (Chlorhexidine 2% Cloth) 3 pack Taper DAILY@04 TOP 01/08/18 04:00 01/04/19 03:59 01/08/18 04:00 (Chlorhexidine 2% Cloth) 3 pack UNSCH PRN TOP 01/07/18 09:45 (Claire-Colace) 1 tab BID PO 01/07/18 21:00 01/07/18 20:01 (Milk Of Magnesia Liq) 30 ml Q12H PRN PO 01/07/18 09:45 (Senokot) 17.2 mg Q12H PRN PO 01/07/18 09:45 (Dulcolax Supp) 10 mg DAILY PRN RECTAL 01/07/18 09:45 (Lactulose Liq) 30 ml DAILY PRN PO 01/07/18 09:45 Azithromycin 500 mg/Sodium Chloride 250 ml @ 250 mls/hr Q24H IV 01/08/18 09:00 (D50w (Vial) Inj) 50 ml UNSCH PRN IV PUSH 01/07/18 09:45 (Glucagon Inj) 1 mg UNSCH PRN OTHER 01/07/18 09:45 (NovoLIN R SUPPLEMENTAL SCALE) 1 Q6H SQ 01/07/18 10:00 01/08/18 04:43 Dextrose/Sodium Chloride 1,000 ml @ 100 mls/hr Q10H IV 01/07/18 11:00 01/08/18 04:45 Pharmacy Profile Note ml @ 0 mls/hr UNSCH OTHER 01/07/18 10:30 (SoluMEDROL INJ) 40 mg Q12HR IV PUSH 01/07/18 11:00 01/07/18 20:00 (Lopressor) 25 mg Q12HR PO 01/07/18 17:00 01/07/18 18:33 Vancomycin HCl 1200 mg/Sodium Chloride 262 ml @ 250 mls/hr Q24H IV 01/08/18 17:00 Miscellaneous Information SPECIFIC LAB TO BE DRAWN: VANCO TROUGH DATE TO BE DR... ONCE ONCE .XX 01/10/18 16:45 01/10/18 16:46 Piperacillin Sod/ Tazobactam Sod 50 ml @ 200 mls/hr Q6H IV 01/08/18 11:00 Vital Signs / I&O Vital Signs Date Time Temp Pulse Resp B/P (MAP) Pulse Ox O2 Delivery O2 Flow Rate FiO2 01/08/18 08:56 40 01/08/18 08:56 100 40 01/08/18 08:04 98 40 01/08/18 06:00 58 01/08/18 06:00 58 17 178/77 (110) 100 01/08/18 05:18 100 40 01/08/18 04:00 97.6 72 14 159/70 (99) 100 01/08/18 04:00 40 01/08/18 04:00 79 01/08/18 03:00 64 16 172/79 (110) 100 01/08/18 03:00 64 01/08/18 02:42 100 40 01/08/18 02:00 67 01/08/18 02:00 53 15 178/74 (108) 98 01/08/18 01:00 58 15 154/72 (99) 99 01/08/18 00:15 98 40 01/08/18 00:00 97.4 56 14 134/62 (86) 99 01/08/18 00:00 56 01/08/18 00:00 40 01/07/18 22:00 67 01/07/18 21:00 58 17 112/57 (75) 98 01/07/18 20:09 99 40 01/07/18 20:00 40 01/07/18 20:00 99.0 64 14 103/51 (68) 99 01/07/18 20:00 64 01/07/18 18:30 71 01/07/18 18:30 71 26 123/59 (80) 100 01/07/18 18:00 74 01/07/18 18:00 98.5 74 15 128/62 (84) 100 01/07/18 17:30 84 14 114/61 (78) 100 01/07/18 17:30 84 01/07/18 16:34 100 40 01/07/18 15:51 100 100 01/07/18 13:40 100 100 01/07/18 11:26 100 100 01/07/18 11:20 95 16 110/62 (78) 100 01/07/18 11:16 100 100 01/07/18 10:44 98 18 157/71 (99) 100 Ventilator 15.00 100 01/07/18 10:25 98 15 135/65 (88) 100 Ventilator 15.00 100 01/07/18 09:23 100 100 01/07/18 09:21 100 26 175/94 (121) 100 Ventilator 100 I/O 01/07/18 01/07/18 01/07/18 01/08/18 01/08/18 01/08/18 07:00 15:00 23:00 07:00 15:00 23:00 Intake Total 100 ml 1320 ml Output Total 375 ml 350 ml Balance -275 ml 970 ml Intake IV Total 100 ml 1200 ml Other 120 ml Output Urine Total 375 ml 350 ml # Bowel Movements 0 0 Physical Exam GENERAL: This is a well-nourished, well-developed patient, in no apparent distress. CARDIOVASCULAR: Regular rate and rhythm without murmurs, gallops, or rubs. RESPIRATORY: Clear to auscultation. Breath sounds equal bilaterally. No wheezes , rales, or rhonchi. GASTROINTESTINAL: Abdomen soft, non-tender, nondistended. Normal active bowel sounds MUSCULOSKELETAL: Extremities without clubbing, cyanosis, or edema. NEURO: Alert & Oriented x4 to person, place, time, situation. Moves all ext x4 Laboratory Laboratory Tests Test 01/07/18 12:00 01/07/18 13:44 01/07/18 16:00 01/07/18 16:25 Nasal Screen MRSA (PCR) MRSA NOT DETECTED Troponin I 0.30 NG/ML B-Type Natriuretic Peptide 664 PG/ML Prothrombin Time 12.0 SEC Prothromb Time International Ratio 1.2 RATIO Blood Gas Puncture Site LT RADIAL Blood Gas Patient Temperature 98.6 Blood Gas HCO3 32 mmol/L Blood Gas Base Excess 6.8 mmol/L Blood Gas Oxygen Saturation 98 % Arterial Blood pH 7.41 Arterial Blood Partial Pressure CO2 51 mmHg Arterial Blood Partial Pressure O2 361 mmHg Arterial Blood Oxygen Content 11.0 Vol % Arterial Blood Carboxyhemoglobin 0.7 % Arterial Blood Methemoglobin 1.5 % Blood Gas Hemoglobin 7.3 G/DL Oxygen Delivery Device VENTILATOR Blood Gas Ventilator Setting Blood Gas Inspired Oxygen 100 % Test 01/07/18 20:35 01/08/18 03:46 Troponin I 0.24 NG/ML White Blood Count 11.3 TH/MM3 Red Blood Count 2.60 MIL/MM3 Hemoglobin 8.0 GM/DL Hematocrit 24.2 % Mean Corpuscular Volume 93.2 FL Mean Corpuscular Hemoglobin 30.7 PG Mean Corpuscular Hemoglobin Concent 32.9 % Red Cell Distribution Width 17.0 % Platelet Count 342 TH/MM3 Mean Platelet Volume 9.2 FL Neutrophils (%) (Auto) 96.7 % Lymphocytes (%) (Auto) 0.8 % Monocytes (%) (Auto) 2.0 % Eosinophils (%) (Auto) 0.1 % Basophils (%) (Auto) 0.4 % Neutrophils # (Auto) 10.9 TH/MM3 Lymphocytes # (Auto) 0.1 TH/MM3 Monocytes # (Auto) 0.2 TH/MM3 Eosinophils # (Auto) 0.0 TH/MM3 Basophils # (Auto) 0.0 TH/MM3 CBC Comment DIFF FINAL Differential Comment Hematology Comments Blood Urea Nitrogen 39 MG/DL Creatinine 1.94 MG/DL Random Glucose 200 MG/DL Total Protein 4.9 GM/DL Albumin 1.8 GM/DL Calcium Level 8.4 MG/DL Phosphorus Level 2.5 MG/DL Magnesium Level 1.7 MG/DL Alkaline Phosphatase 94 U/L Aspartate Amino Transf (AST/SGOT) 22 U/L Alanine Aminotransferase (ALT/SGPT) 20 U/L Total Bilirubin 0.3 MG/DL Sodium Level 147 MEQ/L Potassium Level 3.8 MEQ/L Chloride Level 107 MEQ/L Carbon Dioxide Level 28.8 MEQ/L Anion Gap 11 MEQ/L Estimat Glomerular Filtration Rate 34 ML/MIN Imaging Last Impressions Chest X-Ray 01/07/18 0719 Signed Impressions: Service Date/Time: Sunday, January 07, 2018 07:26 - CONCLUSION: 1. Bibasilar patchiness consistent with probable pneumonia. Clinical correlation is recommended. 2. Small right pleural effusion. 3. Mild cardiomegaly. Fabian Villegas MD Assessment and Plan Problem List: (1) Troponin level elevated ICD Codes: R74.8 - Abnormal levels of other serum enzymes Plan: non-specific, will plan for ischemic workup once extubated, npo after midnight in case. Seb uPrvis MD Jan 08, 2018 09:18
--- NOTE | 2018-01-08 10:08 | HHI.GIFU ---
Subjective Remarks Pt opens eyes and moving feet FiO2 now down to 40% NG to TF Per RN no BM (Arlen Medeiros) Objective Vitals I&O Vital Signs Date Time Temp Pulse Resp B/P (MAP) Pulse Ox O2 Delivery O2 Flow Rate FiO2 01/08/18 09:55 0 40 01/08/18 08:56 40 01/08/18 08:56 100 40 01/08/18 08:04 98 40 01/08/18 06:00 58 01/08/18 06:00 58 17 178/77 (110) 100 01/08/18 05:18 100 40 01/08/18 04:00 97.6 72 14 159/70 (99) 100 01/08/18 04:00 40 01/08/18 04:00 79 01/08/18 03:00 64 16 172/79 (110) 100 01/08/18 03:00 64 01/08/18 02:42 100 40 01/08/18 02:00 67 01/08/18 02:00 53 15 178/74 (108) 98 01/08/18 01:00 58 15 154/72 (99) 99 01/08/18 00:15 98 40 01/08/18 00:00 97.4 56 14 134/62 (86) 99 01/08/18 00:00 56 01/08/18 00:00 40 01/07/18 22:00 67 01/07/18 21:00 58 17 112/57 (75) 98 01/07/18 20:09 99 40 01/07/18 20:00 40 01/07/18 20:00 99.0 64 14 103/51 (68) 99 01/07/18 20:00 64 01/07/18 18:30 71 01/07/18 18:30 71 26 123/59 (80) 100 01/07/18 18:00 74 01/07/18 18:00 98.5 74 15 128/62 (84) 100 01/07/18 17:30 84 14 114/61 (78) 100 18 17:30 84 01/07/18 16:34 100 40 01/07/18 15:51 100 100 01/07/18 13:40 100 100 01/07/18 11:26 100 100 01/07/18 11:20 95 16 110/62 (78) 100 01/07/18 11:16 100 100 01/07/18 10:44 98 18 157/71 (99) 100 Ventilator 15.00 100 01/07/18 10:25 98 15 135/65 (88) 100 Ventilator 15.00 100 I/O 01/07/18 01/07/18 01/07/18 01/08/18 01/08/18 01/08/18 07:00 15:00 23:00 07:00 15:00 23:00 Intake Total 100 ml 1320 ml Output Total 375 ml 350 ml Balance -275 ml 970 ml Intake IV Total 100 ml 1200 ml Other 120 ml Output Urine Total 375 ml 350 ml # Bowel Movements 0 0 Laboratory Laboratory Tests Test 01/07/18 12:00 01/07/18 13:44 01/07/18 16:00 01/07/18 16:25 Nasal Screen MRSA (PCR) MRSA NOT DETECTED Troponin I 0.30 B-Type Natriuretic Peptide 664 Prothrombin Time 12.0 Prothromb Time International Ratio 1.2 Blood Gas Puncture Site LT RADIAL Blood Gas Patient Temperature 98.6 Blood Gas HCO3 32 Blood Gas Base Excess 6.8 Blood Gas Oxygen Saturation 98 Arterial Blood pH 7.41 Arterial Blood Partial Pressure CO2 51 Arterial Blood Partial Pressure O2 361 Arterial Blood Oxygen Content 11.0 Arterial Blood Carboxyhemoglobin 0.7 Arterial Blood Methemoglobin 1.5 Blood Gas Hemoglobin 7.3 Oxygen Delivery Device VENTILATOR Blood Gas Ventilator Setting Blood Gas Inspired Oxygen 100 Test 01/07/18 20:35 01/08/18 03:46 Troponin I 0.24 White Blood Count 11.3 Red Blood Count 2.60 Hemoglobin 8.0 Hematocrit 24.2 Mean Corpuscular Volume 93.2 Mean Corpuscular Hemoglobin 30.7 Mean Corpuscular Hemoglobin Concent 32.9 Red Cell Distribution Width 17.0 Platelet Count 342 Mean Platelet Volume 9.2 Neutrophils (%) (Auto) 96.7 Lymphocytes (%) (Auto) 0.8 Monocytes (%) (Auto) 2.0 Eosinophils (%) (Auto) 0.1 Basophils (%) (Auto) 0.4 Neutrophils # (Auto) 10.9 Lymphocytes # (Auto) 0.1 Monocytes # (Auto) 0.2 Eosinophils # (Auto) 0.0 Basophils # (Auto) 0.0 CBC Comment DIFF FINAL Differential Comment Hematology Comments Blood Urea Nitrogen 39 Creatinine 1.94 Random Glucose 200 Total Protein 4.9 Albumin 1.8 Calcium Level 8.4 Phosphorus Level 2.5 Magnesium Level 1.7 Alkaline Phosphatase 94 Aspartate Amino Transf (AST/SGOT) 22 Alanine Aminotransferase (ALT/SGPT) 20 Total Bilirubin 0.3 Sodium Level 147 Potassium Level 3.8 Chloride Level 107 Carbon Dioxide Level 28.8 Anion Gap 11 Estimat Glomerular Filtration Rate 34 Date/Time Source Procedure Growth Status 01/07/18 06:50 Blood Peripheral Aerobic Blood Culture Pending Received 01/07/18 06:50 Blood Peripheral Anaerobic Blood Culture Pending Received 01/07/18 10:34 Sputum Endotracheal Gram Stain - Final Resulted 01/07/18 10:34 Sputum Endotracheal Sputum Culture Pending Resulted 01/07/18 09:10 Urine Catheterized Urine Urine Culture Pending Received Imaging Last Impressions Chest X-Ray 01/07/18 07 Signed Impressions: Service Date/Time: Sunday, January 07, 2018 07:26 - CONCLUSION: 1. Bibasilar patchiness consistent with probable pneumonia. Clinical correlation is recommended. 2. Small right pleural effusion. 3. Mild cardiomegaly. Fabian Villegas MD Physical Exam HEENT: Normocephalic; atraumatic CHEST: Respirations synchronized with vent CARDIAC: RRR ABDOMEN: Soft, nondistended, bowel sounds active. NGT to TF- Nepro @ 40 mL/hr EXTREMITIES: No clubbing, cyanosis, or edema. SKIN: Normal; no rash; no jaundice. TILE SETTER SUPERVISOR: Opens eyes, moving feet (Arlen Medeiros) Assessment and Plan Plan Assessment: - Anemia- normocytic- No reports of GIB per RN. History limited, I attempted to call Evelina at number listed, pts son answered phone and states Evelina is at the hospital, however no one at bedside during my exam. Pt has never been to [place] before so unsure of hx of anemia, GIB, EGD, colonoscopy. No BM documented since arrival, OGT to LIWS with no output - Lymphoma- per CCM on chemotherapy and radiation- oncology consult pending. There is note of previous blood transfusion after first round of chemotherapy - Hypercapnic respiratory failure- Mechanically ventilated with 100% FiO2 - Hyperammonemia- ammonia-36- unclear significant. LFTs WNL - Leukocytosis- Azithromycin and Zosyn - Impaired renal function- per attending (01/08) Pt now down to 40% FiO2. Drop in hgb noted from 9.2 yesterday to 8 today. Per RN he has not had a BM. NGT to TF- Nepro @ 40 mL/hr. No signs of active GIB. Chronic anemia noted. Hemoccult stool pending, because pt has not had BM. Per RN, pt may be extubated today. CT abdomen and pelvis noted --> 4.1 x 2.6 cm lobulated low density lesion within the right lobe of liver which is indeterminate on the unenhanced exam. Uncomplicated colonic diverticulosis. Gallbladder sludge. Plan: - TF- Nepro - Monitor H/H - Hemoccult stool - No signs of active GIB, anemia is chronic - GI will sign off, please reconsult as needed Pt has been seen and examined by myself and Dr. Grullon and this note is written on her behalf (Arlen Medeiros) Physician Comments seen, examined agree with above (Lia Grullon MD) Arlen Medeiros Jan 08, 2018 10:08 Lia Grullon MD Jan 08, 2018 14:22
[2018-01-08] MEDS: methylPREDNISolone SOD SUCC 40 MG/1 ML VIAL IV PUSH SCH ×2 (10:41→21:34)
[2018-01-08] MEDS: METOPROLOL TARTRATE 25 MG TAB PO SCH ×2 (10:41→21:00)
[2018-01-08] MEDS: FAMOTIDINE 20 MG/2 ML VIAL IV PUSH SCH ×2 (10:41→21:33)
[2018-01-08] MEDS: DOCUSATE SODIUM 50 MG/SENNA 8.6 MG TAB PO SCH ×2 (10:41→21:35)
[2018-01-08] MEDS: AZITHROMYCIN INJ 500 MG in SODIUM CHLOR 0.9% 250 ML INJ 250 ML IV SCH (10:41)
--- NOTE | 2018-01-08 10:52 | HHI.CCPN ---
Subjective Remarks/Hospital Course Patient is a 77-year-old male with a past medical history of coronary artery disease, hypertension, hyperlipidemia, BPH and lymphoma, on radiation treatment and chemotherapy. He presented to [facility] ED from a rehab facility for lethargy, hypoxemia, and low saturation. Initially, he was placed on a BiPAP and ABG was performed, which showed acute hypercapnic respiratory failure with a pH of 7.14, CO2 of 103, PaO2 of 89, bicarbonate 34, and saturation 92%. He was subsequently intubated with etomidate, succinylcholine, and placed on full mechanical ventilation. A chest x-ray in the ER showed bibasilar patchiness and small right pleural effusion. According to the patient's family, he underwent a blood transfusion on 01/12/2018 after he received his first cycle of chemotherapy and then shortly after he was readmitted in [place] for fever, pneumonia and sepsis. The patient was eventually discharged to a rehab facility. There is no history of home oxygen or use of bronchodilators. The patient quit smoking in October and used to smoke a pack and half a day for about 60 years. His laboratory data is significant for leukocytosis with a WBC of 17.7, acute kidney injury with a creatinine of 1.82. His lactic acid level measured at 0.8. Chest x-ray post- intubation showed ET tube above the nelson, left subclavian Infusaport in place , bibasilar atelectasis and/or infiltrate and small right pleural effusion. When seen, the patient is sedated with Diprivan and on full mechanical ventilation. His blood pressure 175/94 with a pulse of 100. The patient is afebrile. 01/08 No events overnight. Remains intubated on CPAP awake, alert.Afebrile. Objective Vital Signs Date Time Temp Pulse Resp B/P (MAP) Pulse Ox O2 Delivery O2 Flow Rate FiO2 01/08/18 10:23 96 40 01/08/18 06:00 58 01/08/18 06:00 17 178/77 (110) 01/08/18 04:00 97.6 01/07/18 10:44 Ventilator 15.00 Intake and Output 01/08/18 01/08/18 01/09/18 08:00 16:00 00:00 Intake Total 1320 ml Output Total 350 ml Balance 970 ml Result Diagram: 01/08/18 0346 01/08/18 0346 Other Results Laboratory Tests Test 01/07/18 12:00 01/07/18 13:44 01/07/18 16:00 01/07/18 16:25 Nasal Screen MRSA (PCR) MRSA NOT DETECTED Troponin I 0.30 NG/ML B-Type Natriuretic Peptide 664 PG/ML Prothrombin Time 12.0 SEC Prothromb Time International Ratio 1.2 RATIO Blood Gas Puncture Site LT RADIAL Blood Gas Patient Temperature 98.6 Blood Gas HCO3 32 mmol/L Blood Gas Base Excess 6.8 mmol/L Blood Gas Oxygen Saturation 98 % Arterial Blood pH 7.41 Arterial Blood Partial Pressure CO2 51 mmHg Arterial Blood Partial Pressure O2 361 mmHg Arterial Blood Oxygen Content 11.0 Vol % Arterial Blood Carboxyhemoglobin 0.7 % Arterial Blood Methemoglobin 1.5 % Blood Gas Hemoglobin 7.3 G/DL Oxygen Delivery Device VENTILATOR Blood Gas Ventilator Setting Blood Gas Inspired Oxygen 100 % Test 01/07/18 20:35 01/08/18 03:46 Troponin I 0.24 NG/ML White Blood Count 11.3 TH/MM3 Red Blood Count 2.60 MIL/MM3 Hemoglobin 8.0 GM/DL Hematocrit 24.2 % Mean Corpuscular Volume 93.2 FL Mean Corpuscular Hemoglobin 30.7 PG Mean Corpuscular Hemoglobin Concent 32.9 % Red Cell Distribution Width 17.0 % Platelet Count 342 TH/MM3 Mean Platelet Volume 9.2 FL Neutrophils (%) (Auto) 96.7 % Lymphocytes (%) (Auto) 0.8 % Monocytes (%) (Auto) 2.0 % Eosinophils (%) (Auto) 0.1 % Basophils (%) (Auto) 0.4 % Neutrophils # (Auto) 10.9 TH/MM3 Lymphocytes # (Auto) 0.1 TH/MM3 Monocytes # (Auto) 0.2 TH/MM3 Eosinophils # (Auto) 0.0 TH/MM3 Basophils # (Auto) 0.0 TH/MM3 CBC Comment DIFF FINAL Differential Comment Hematology Comments Blood Urea Nitrogen 39 MG/DL Creatinine 1.94 MG/DL Random Glucose 200 MG/DL Total Protein 4.9 GM/DL Albumin 1.8 GM/DL Calcium Level 8.4 MG/DL Phosphorus Level 2.5 MG/DL Magnesium Level 1.7 MG/DL Alkaline Phosphatase 94 U/L Aspartate Amino Transf (AST/SGOT) 22 U/L Alanine Aminotransferase (ALT/SGPT) 20 U/L Total Bilirubin 0.3 MG/DL Sodium Level 147 MEQ/L Potassium Level 3.8 MEQ/L Chloride Level 107 MEQ/L Carbon Dioxide Level 28.8 MEQ/L Anion Gap 11 MEQ/L Estimat Glomerular Filtration Rate 34 ML/MIN Imaging Last Impressions Chest X-Ray 01/07/18 0719 Signed Impressions: Service Date/Time: Sunday, January 07, 2018 07:26 - CONCLUSION: 1. Bibasilar patchiness consistent with probable pneumonia. Clinical correlation is recommended. 2. Small right pleural effusion. 3. Mild cardiomegaly. Fabian Villegas MD Objective Remarks GENERAL: Patient is 77 yo intubated SKIN: Warm and dry. HEAD: Normocephalic. EYES: No scleral icterus. No injection or drainage. NECK: Supple, trachea midline. No JVD or lymphadenopathy. CARDIOVASCULAR: Regular rate and rhythm without murmurs, gallops, or rubs. RESPIRATORY: Breath sounds equal bilaterally. No accessory muscle use. GASTROINTESTINAL: Abdomen soft, non-tender, nondistended. MUSCULOSKELETAL: No cyanosis, or edema. Neuro: Intubated, awake. A/P Assessment and Plan 1. VDRF 2. Pneumonia. 3. Acute kidney injury. 4. Lymphoma. 5. Elevated troponin. 6. Leukocytosis. 7. Anemia. 8. History of hypertension. 9. History of coronary artery disease. 10. Hyperlipidemia. 11. History of benign prostatic hyperplasia. Plan Neuro: Off sedation. Monitor neuro status. CT jd: No acute intracranial abnormalities Pulm: Continue with vent support and maintain sats > 92%. Bronchodilators, Solu-Medrol 40 mg IV q.12 hours. ICU vent bundle. SBT daily and possible extubation today CT chest: Small right pleural effusion with adjacent compressive atelectasis. 7 mm noncalcified nodule within the left lower lobe laterally which is indeterminate. . Right axillary fluid collection measuring 6.0 x 3.1 x 4.3 cm consistent with possible seroma CV: Monitor HR and BP keep MAP>65mmHG For 2D echo, cards is following- Dr. Gillespie : Monitor renal function, I's and O's and avoid nephrotoxins. Change IVF NS@75ml/hr CT abd/pelvis: No hydronephrosis, stones or masses. Right renal cyst GI: Pepcid 10 mg IV q.12 hours. On Nepro @50ml/hr Heme: Monitor CBC , coags, Onc consulted for hx lymphoma s/p chemo/XRT ID: On vancomycin, Zosyn and azithromycin. Monitor for signs of infections( Fever and WBC). Follow up on blood, sputum and urine cultures. Strep pneumonia, legionella urinary antigen, nasal washing to rule out influenza all pending. Endo: SSI with Accu-Cheks for glycemic control GI prophylaxis with Pepcid and DVT prophylaxis with SCDs for now. Lines: He has a left subclavian Infusaport and peripheral IVs. Level 3 Juju Mendez MD Jan 08, 2018 10:52
[2018-01-08] MEDS: PIPERACIL-TAZO 3.375 GM PREMIX 50 ML IV SCH ×3 (11:00→23:46)
[2018-01-08] MEDS: SODIUM CHLOR 0.9% 1000 ML INJ 1,000 ML IV SCH (12:17)
[2018-01-08] MEDS ORDERED: RESP: ALBUTEROL 2.5 MG/IPRATROPIUM 0.5 MG NEB (PRN) NEB (12:45)
[2018-01-08] MEDS: BUDESONIDE-FORMOTEROL 160/4.5 MCG INHALER INH SCH ×2 (13:00→21:00)
--- NOTE | 2018-01-08 15:16 | MB ---
cc: Fiordaliza Coates MD DATE: 01/08/2018 CHIEF COMPLAINT: 1. 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 2. Hypercapnic respiratory failure, intubated and status post recent extubation. HISTORY OF PRESENT ILLNESS: Mr. Garcia is a 77-year-old gentleman with a history of coronary artery disease, status post stent placement, hypertension, hyperlipidemia, BPH, and recent diagnosis of peripheral T-cell lymphoma. He was admitted to [facility] on 01/07/2018, with lethargy, altered mental status, hypoxia and was found to be in hypoxemic hypercapnic respiratory failure. He was initially placed on the BiPAP and was subsequently intubated. He was extubated today and awaiting speech evaluation for a swallow study. Oncology history obtained from patient and family. They report that he developed a skin rash as well as axillary lymphadenopathy. His skin rash was evaluated by infectious disease and dermatology for etiology and biopsy revealed a T-cell lymphoma. He was found to have disease in his mediastinum and his axilla, and he is currently in the midst of receiving radiation therapy to his mediastinum, as well as to his skin lesions, and he has also received his first cycle of chemotherapy with CHOP on 12/15/2017. He follows under the care of oncologist, Dr. Maureen Nunez, at [facility] in [place]. LABORATORY STUDIES: With white blood cell count of 11.3, hemoglobin 8, platelet count of 342,000 with a neutrophil count of 10.9. Chemistry studies with a sodium of 147, creatinine of 1.94, total bilirubin of 0.3, total protein of 4.9 and albumin of 1.8. Sputum Gram stain is pending. Urine culture with no growth in 24 hours and blood cultures with no growth in [address] scan of the chest with small right pleural effusion with adjacent compressive atelectasis, tiny left pleural effusion, 7 mm noncalcified nodule within the left lower lobe laterally, which is indeterminate, scattered discoid atelectasis bilaterally, right axillary fluid collection measuring 6 x 3.1 x 4.3 cm consistent with a seroma, right axillary lymphadenopathy with largest lymph node measuring [address] scan of the abdomen and pelvis with 4.1 x 2.6 cm lobulated low density lesion in the lobe of the liver, which is indeterminate, 4 cm lower pole right renal cyst, small right pleural effusion with compressive atelectasis. PAST MEDICAL HISTORY: 1. Coronary artery disease. 2. T-cell lymphoma. 3. Hypertension. 4. Hyperlipidemia. 5. BPH. PAST SURGICAL HISTORY: 1. Coronary artery stent placement. 2. TURBT. FAMILY HISTORY: Father at the age of 78 from lymphoma. SOCIAL HISTORY: Former smoker. Good support system. Lives in the [facility] with his . ALLERGIES: NO KNOWN DRUG ALLERGIES. REVIEW OF SYSTEMS: As per HPI. PHYSICAL EXAMINATION: GENERAL: Elderly man, debilitated, resting in bed. NECK: Supple with no lymphadenopathy. CARDIOVASCULAR: Regular rate and rhythm. No murmurs. LUNGS: Bilateral rhonchorous breath sounds. ABDOMEN: Protuberant, but soft, nontender, nondistended. EXTREMITIES: No edema. NEUROLOGIC: Grossly nonfocal. ASSESSMENT AND PLAN: 1. New diagnosis of peripheral T-cell lymphoma with axillary adenopathy, questionable disease in the mediastinum as well as skin lesions. He has received his first cycle of CHOP chemotherapy on 12/15/2017. 2. Leukocytosis with left shift. Metamyelocytes, myelocytes present on differential from admission, likely reactive due to acute infection. 3. Anemia with history of CHOP chemotherapy as well as blood transfusion at prior hospitalization. Continue to monitor counts. 4. Healthcare-associated pneumonia, on broad spectrum antibiotics with cultures pending. 5. Respiratory failure, status post extubation. 6. Severe deconditioning. Oncology service will continue to follow the patient will obtain records from primary oncologist during the work week. MD MATHEW Gonzalez/RENARD , 02:53 PM , 03:15 PM OLESYA
[2018-01-08] MEDS ORDERED: VANCOMYCIN INJ 1,200 MG in SODIUM CHLOR 0.9% 250 ML INJ 250 ML IV SCH (17:00)
[2018-01-08] MEDS: hydrALAZINE HCL 20 MG/ML VIAL IV PUSH PRN (21:34)
[2018-01-08] MEDS: METOPROLOL TARTRATE 50 MG TAB PO SCH (21:35)
[2018-01-09] VITALS (24 sets, daily range): BP systolic 135–187; BP diastolic 62–81; PULSE 59–94; RESP 16–38; TEMP 97.9–98.9; O2SAT 95–99
[2018-01-09] MEDS: SODIUM CHLOR 0.9% 1000 ML INJ 1,000 ML IV SCH (00:35)
[2018-01-09] MEDS: INSULIN NovoLIN REGULAR SUPPLEMENTAL SCALE SQ SCH ×4 (04:00→22:00)
[2018-01-09] MEDS: RESP: ALBUTEROL 2.5 MG/IPRATROPIUM 0.5 MG NEB (SCH) INH ×4 (04:00→20:06)
[2018-01-09] MEDS: CHLORHEXIDINE GLUCONATE 2 % 1 PACK (2 CLOTHS) TOP SCH (04:00)
[2018-01-09] MEDS: PIPERACIL-TAZO 3.375 GM PREMIX 50 ML IV SCH ×4 (06:52→22:51)
[2018-01-09 07:19] LABS: AUTOMATED NEUTROPHIL # 18.7 TH/MM3 (1.8-7.7); BASOPHIL % 0.2 % (0.0-2.0); HEMATOCRIT 26.1 % (39.0-51.0); HEMOGLOBIN 8.4 GM/DL (13.0-17.0); LYMPH % 0.4 % (9.0-44.0); LYMPHOCYTE # 0.1 TH/MM3 (1.0-4.8); MEAN CELL VOLUME 92.9 FL (80.0-100.0); MEAN CORPUSCULAR HGB CONC 32.3 % (32.0-36.0); MEAN PLATELET VOLUME 8.9 FL (7.0-11.0); MONO % 2.2 % (0.0-8.0); MONOCYTE # 0.4 TH/MM3 (0-0.9); NEUT % 97.2 % (16.0-70.0); PLATELET COUNT 370 TH/MM3 (150-450); RED BLOOD COUNT 2.81 MIL/MM3 (4.50-5.90); RED CELL DISTRIBUTION WIDTH 17.2 % (11.6-17.2); WHITE BLOOD COUNT 19.2 TH/MM3 (4.0-11.0)
[2018-01-09 07:21] LABS: BICARBONATE 31.8 MEQ/L (21.0-32.0); CALCIUM 8.7 MG/DL (8.5-10.1); CREATININE 1.17 MG/DL (0.60-1.30)
--- NOTE | 2018-01-09 08:17 | PD.CARD.PN ---
Subjective Subjective Remarks Now extubated, no cp prior to event or currently Objective Medications Current Medications Medications (Trade) Dose Ordered Sig/Андрей Route Start Time Stop Time Status Last Admin (NS Flush) 2 ml UNSCH PRN IVF 01/07/18 08:45 01/07/18 09:05 (Pepcid Inj) 10 mg Q12HR IV PUSH 01/07/18 09:45 01/08/18 21:33 (Duoneb Neb) 1 ampule Q6HR NEB INH 01/07/18 10:00 01/08/18 16:12 Miscellaneous Information 1 Q361D XX 01/07/18 09:45 (Chlorhexidine 2% Cloth) 3 pack Taper DAILY@04 TOP 01/08/18 04:00 01/04/19 03:59 01/09/18 04:00 (Chlorhexidine 2% Cloth) 3 pack UNSCH PRN TOP 01/07/18 09:45 (Claire-Colace) 1 tab BID PO 01/07/18 21:00 01/08/18 21:35 (Milk Of Magnesia Liq) 30 ml Q12H PRN PO 01/07/18 09:45 (Senokot) 17.2 mg Q12H PRN PO 01/07/18 09:45 (Dulcolax Supp) 10 mg DAILY PRN RECTAL 01/07/18 09:45 (Lactulose Liq) 30 ml DAILY PRN PO 01/07/18 09:45 Azithromycin 500 mg/Sodium Chloride 250 ml @ 250 mls/hr Q24H IV 01/08/18 09:00 01/08/18 10:41 (D50w (Vial) Inj) 50 ml UNSCH PRN IV PUSH 01/07/18 09:45 (Glucagon Inj) 1 mg UNSCH PRN OTHER 01/07/18 09:45 (NovoLIN R SUPPLEMENTAL SCALE) 1 Q6H SQ 01/07/18 10:00 01/08/18 10:00 Pharmacy Profile Note ml @ 0 mls/hr UNSCH OTHER 01/07/18 10:30 (SoluMEDROL INJ) 40 mg Q12HR IV PUSH 01/07/18 11:00 01/08/18 21:34 (Lopressor) 25 mg Q12HR PO 01/07/18 17:00 01/08/18 10:41 Vancomycin HCl 1200 mg/Sodium Chloride 262 ml @ 250 mls/hr Q24H IV 01/08/18 17:00 01/08/18 15:42 Miscellaneous Information SPECIFIC LAB TO BE DRAWN: VANCO TROUGH DATE TO BE DRMaikol.. ONCE ONCE .XX 01/10/18 16:45 01/10/18 16:46 Piperacillin Sod/ Tazobactam Sod 50 ml @ 200 mls/hr Q6H IV 01/08/18 11:00 01/09/18 06:52 Sodium Chloride 1,000 ml @ 75 mls/hr [id number] IV 01/08/18 11:15 01/09/18 00:35 (Symbicort 160-4.5 Mcg Inh) 2 puff Q12HR INH 01/08/18 13:00 (Duoneb Neb) 1 ampule Q2HR NEB PRN NEB 01/08/18 12:45 (Lopressor) 50 mg Q12HR PO 01/08/18 21:00 01/08/18 21:35 (Apresoline Inj) 10 mg Q4H PRN IV PUSH 01/08/18 16:45 01/08/18 21:34 Vital Signs / I&O Vital Signs Date Time Temp Pulse Resp B/P (MAP) Pulse Ox O2 Delivery O2 Flow Rate FiO2 01/09/18 06:00 83 01/09/18 04:00 98.9 59 16 180/81 (114) 98 01/09/18 04:00 59 01/09/18 02:00 78 01/09/18 00:00 86 01/09/18 00:00 98.4 86 25 157/71 (99) 96 01/08/18 22:00 91 01/08/18 21:32 100 Nasal Cannula 2.00 01/08/18 20:00 98.7 79 20 192/80 (117) 100 01/08/18 20:00 79 01/08/18 18:00 69 19 168/103 (124) 94 01/08/18 18:00 69 01/08/18 17:00 93 22 173/76 (108) 95 01/08/18 17:00 93 01/08/18 16:00 98.5 67 19 181/82 (115) 98 01/08/18 16:00 67 01/08/18 15:00 69 22 185/83 (117) 100 01/08/18 15:00 69 01/08/18 14:00 62 01/08/18 14:00 62 19 169/75 (106) 100 01/08/18 13:00 99 Nasal Cannula 4.00 01/08/18 13:00 79 01/08/18 13:00 79 22 165/90 (115) 01/08/18 13:00 99 Nasal Cannula 4 01/08/18 12:00 91 01/08/18 12:00 91 22 161/77 (105) 96 01/08/18 11:00 76 01/08/18 11:00 76 16 179/78 (111) 100 01/08/18 10:23 96 40 01/08/18 10:00 70 01/08/18 10:00 70 19 177/82 (113) 95 01/08/18 09:55 96 40 01/08/18 09:00 81 14 183/81 (115) 100 01/08/18 09:00 81 01/08/18 08:56 40 01/08/18 08:56 100 40 I/O 01/08/18 01/08/18 01/08/18 01/09/18 01/09/18 01/09/18 07:00 15:00 23:00 07:00 15:00 23:00 Intake Total 1320 ml 300 ml Output Total 350 ml 1075 ml Balance 970 ml 300 ml -1075 ml Intake IV Total 1200 ml Tube Feeding 240 ml Tube Irrigant 60 ml Other 120 ml Output Urine Total 350 ml 1075 ml # Bowel Movements 0 0 Physical Exam GENERAL: This is a well-nourished, well-developed patient, in no apparent distress. CARDIOVASCULAR: Regular rate and rhythm without murmurs, gallops, or rubs. RESPIRATORY: Clear to auscultation. Breath sounds equal bilaterally. No wheezes , rales, or rhonchi. GASTROINTESTINAL: Abdomen soft, non-tender, nondistended. Normal active bowel sounds MUSCULOSKELETAL: Extremities without clubbing, cyanosis, or edema. NEURO: Alert & Oriented x4 to person, place, time, situation. Moves all ext x4 Laboratory Laboratory Tests Test 01/08/18 11:50 01/09/18 06:00 Blood Gas Puncture Site LT RADIAL Blood Gas Patient Temperature 98.6 Blood Gas HCO3 31 mmol/L Blood Gas Base Excess 5.9 mmol/L Blood Gas Oxygen Saturation 96 % Arterial Blood pH 7.40 Arterial Blood Partial Pressure CO2 50 mmHg Arterial Blood Partial Pressure O2 151 mmHg Arterial Blood Oxygen Content 11.0 Vol % Arterial Blood Carboxyhemoglobin 1.0 % Arterial Blood Methemoglobin 1.6 % Blood Gas Hemoglobin 7.9 G/DL Oxygen Delivery Device VENTILATOR Blood Gas Ventilator Setting CPAP+5/PS10 Blood Gas Inspired Oxygen 40 % White Blood Count 19.2 TH/MM3 Red Blood Count 2.81 MIL/MM3 Hemoglobin 8.4 GM/DL Hematocrit 26.1 % Mean Corpuscular Volume 92.9 FL Mean Corpuscular Hemoglobin 30.0 PG Mean Corpuscular Hemoglobin Concent 32.3 % Red Cell Distribution Width 17.2 % Platelet Count 370 TH/MM3 Mean Platelet Volume 8.9 FL Neutrophils (%) (Auto) 97.2 % Lymphocytes (%) (Auto) 0.4 % Monocytes (%) (Auto) 2.2 % Eosinophils (%) (Auto) 0.0 % Basophils (%) (Auto) 0.2 % Neutrophils # (Auto) 18.7 TH/MM3 Lymphocytes # (Auto) 0.1 TH/MM3 Monocytes # (Auto) 0.4 TH/MM3 Eosinophils # (Auto) 0.0 TH/MM3 Basophils # (Auto) 0.0 TH/MM3 CBC Comment AUTO DIFF Blood Urea Nitrogen 28 MG/DL Creatinine 1.17 MG/DL Random Glucose 134 MG/DL Calcium Level 8.7 MG/DL Sodium Level 151 MEQ/L Potassium Level 2.9 MEQ/L Chloride Level 110 MEQ/L Carbon Dioxide Level 31.8 MEQ/L Anion Gap 9 MEQ/L Estimat Glomerular Filtration Rate 60 ML/MIN Imaging Last Impressions Chest CT 01/07/18 0943 Signed Impressions: Service Date/Time: Sunday, January 07, 2018 10:59 - CONCLUSION: 1. Small right pleural effusion with adjacent compressive atelectasis. 2. Tiny left pleural effusion. 3. 7 mm noncalcified nodule within the left lower lobe laterally which is indeterminate. Followup CT the chest in 6 months would be helpful to confirm stability of this finding. 4. Scattered discoid atelectasis bilaterally. 5. Right axillary fluid collection measuring 6.0 x 3.1 x 4.3 cm consistent with possible seroma if the patient has had surgery in this location. 6. Right axillary lymphadenopathy with the largest lymph node measuring 16 mm. 7. Coronary artery calcifications. Fabian Villegas MD Chest X-Ray 01/07/18 0844 Signed Impressions: Service Date/Time: Sunday, January 07, 2018 09:26 - CONCLUSION: Small right pleural effusion. Bibasilar atelectasis and/or infiltrate. Cardiomegaly. Fabian Villegas MD Head CT 01/07/18 0802 Signed Impressions: Service Date/Time: Sunday, January 07, 2018 10:53 - CONCLUSION: 1. No acute intracranial abnormality. 2. Moderate mucosal thickening involving the maxillary and ethmoid sinuses bilaterally. Fabian Villegas MD Abdomen/Pelvis CT 01/07/18 0000 Signed Impressions: Service Date/Time: Sunday, January 07, 2018 10:59 - CONCLUSION: 1. Small right pleural effusion with adjacent compressive atelectasis. 2. 7 mm noncalcified nodule within the left lower lobe which is indeterminate. 3. 4.1 x 2.6 cm lobulated low density lesion within the right lobe of liver which is indeterminate on this unenhanced examination. Outpatient MRI of the abdomen with contrast may be helpful for further characterization of this finding. 4. 4 cm lower pole right renal cyst. 5. Degenerative changes and scoliosis of the thoracolumbar spine. 6. Enlarged prostate. 7. Uncomplicated colonic diverticulosis. 8. Gallbladder sludge. Fabian Villegas MD Assessment and Plan Problem List: (1) Troponin level elevated ICD Codes: R74.8 - Abnormal levels of other serum enzymes Plan: non-specific, will plan for ischemic workup, perhaps on Tue after he has recovered a bit more Assessment and Plan Will order nuc stress for tomorrow; if no significant ischemia would sign off and he can f/u with Seb Bains MD Jan 09, 2018 08:17
[2018-01-09 08:57] LABS: BANDS 9 % (0-6); LYMPHOCYTES 3 % (9-44); METAMYELOCYTES 1 % (0-1); MONOCYTES 3 % (0-8); POLYS (SEG NEUTROPHILS) 84 % (16-70)
[2018-01-09 08:58] LABS: OVALOCYTES 1+ (NORMAL); TEARDROP RBCS 1+ (NORMAL); TOXIC GRANULATION 1+ (NORMAL)
[2018-01-09] MEDS: METOPROLOL TARTRATE 50 MG TAB PO SCH ×2 (09:00→22:52)
[2018-01-09] MEDS: BUDESONIDE-FORMOTEROL 160/4.5 MCG INHALER INH SCH ×2 (09:41→22:51)
[2018-01-09] MEDS: AZITHROMYCIN INJ 500 MG in SODIUM CHLOR 0.9% 250 ML INJ 250 ML IV SCH (09:43)
[2018-01-09] MEDS: methylPREDNISolone SOD SUCC 40 MG/1 ML VIAL IV PUSH SCH ×2 (09:43→22:52)
[2018-01-09] MEDS: FAMOTIDINE 20 MG/2 ML VIAL IV PUSH SCH (09:43)
[2018-01-09] MEDS: DOCUSATE SODIUM 50 MG/SENNA 8.6 MG TAB PO SCH ×2 (09:44→21:00)
[2018-01-09] MEDS: METOPROLOL TARTRATE 25 MG TAB PO SCH (09:44)
[2018-01-09] MEDS ORDERED: SODIUM PHOSPHATE INJ 30 MMOL in SODIUM CHLOR 0.9% 250 ML INJ 240 ML IV PRN (10:30)
[2018-01-09] MEDS ORDERED: POTASSIUM PHOSPHATE MONOBASIC 500 MG TAB PO/TUBE PRN (10:30)
[2018-01-09] MEDS ORDERED: MAGNESIUM OXIDE 400 MG TAB PO PRN (10:30)
[2018-01-09] MEDS ORDERED: MAGNESIUM SULFATE INJ 4 GM in SODIUM CHLORIDE 0.9% INJ 92 ML IV PRN (10:30)
[2018-01-09] MEDS ORDERED: POTASSIUM PHOSPHATE MONOBASIC 500 MG TAB PO PRN (10:30)
[2018-01-09] MEDS ORDERED: POTASSIUM CHLOR 20 MEQ PREMIX 100 ML IV PRN ×2 (10:30)
[2018-01-09] MEDS ORDERED: POTASSIUM CHLORIDE 25 MEQ EFFERVESCENT TAB PO PRN (10:30)
[2018-01-09] MEDS ORDERED: POTASSIUM PHOSPHATE INJ 30 MMOL in SODIUM CHLOR 0.9% 250 ML INJ 250 ML IV PRN (10:30)
[2018-01-09] MEDS ORDERED: POTASSIUM CHLOR 40 MEQ PREMIX 100 ML IV PRN (10:30)
[2018-01-09] MEDS ORDERED: MAGNESIUM SULFATE INJ 2 GM in SODIUM CHLORIDE 0.9% INJ 96 ML IV PRN (10:30)
--- NOTE | 2018-01-09 10:34 | HHI.CCPN ---
Subjective Remarks/Hospital Course Patient is a 77-year-old male with a past medical history of coronary artery disease, hypertension, hyperlipidemia, BPH and lymphoma, on radiation treatment and chemotherapy. He presented to [facility] ED from a rehab facility for lethargy, hypoxemia, and low saturation. Initially, he was placed on a BiPAP and ABG was performed, which showed acute hypercapnic respiratory failure with a pH of 7.14, CO2 of 103, PaO2 of 89, bicarbonate 34, and saturation 92%. He was subsequently intubated with etomidate, succinylcholine, and placed on full mechanical ventilation. A chest x-ray in the ER showed bibasilar patchiness and small right pleural effusion. According to the patient's family, he underwent a blood transfusion on 01/12/2018 after he received his first cycle of chemotherapy and then shortly after he was readmitted in [place] for fever, pneumonia and sepsis. The patient was eventually discharged to a rehab facility. There is no history of home oxygen or use of bronchodilators. The patient quit smoking in October and used to smoke a pack and half a day for about 60 years. His laboratory data is significant for leukocytosis with a WBC of 17.7, acute kidney injury with a creatinine of 1.82. His lactic acid level measured at 0.8. Chest x-ray post- intubation showed ET tube above the nelson, left subclavian Infusaport in place , bibasilar atelectasis and/or infiltrate and small right pleural effusion. When seen, the patient is sedated with Diprivan and on full mechanical ventilation. His blood pressure 175/94 with a pulse of 100. The patient is afebrile. 01/08 No events overnight. Remains intubated on CPAP awake, alert.Afebrile. 01/09 Patient s/p extubation yesterday. Awake somewhat confused. Afebrile. Objective Vital Signs Date Time Temp Pulse Resp B/P (MAP) Pulse Ox O2 Delivery O2 Flow Rate FiO2 01/09/18 06:00 83 01/09/18 04:00 98.9 16 180/81 (114) 98 01/08/18 21:32 Nasal Cannula 2.00 01/08/18 10:23 40 Intake and Output 01/09/18 01/09/18 01/10/18 08:00 16:00 00:00 Output Total 1075 ml Balance -1075 ml Result Diagram: 01/09/18 0600 01/09/18 0600 Other Results Laboratory Tests Test 01/08/18 11:50 01/09/18 06:00 Blood Gas Puncture Site LT RADIAL Blood Gas Patient Temperature 98.6 Blood Gas HCO3 31 mmol/L Blood Gas Base Excess 5.9 mmol/L Blood Gas Oxygen Saturation 96 % Arterial Blood pH 7.40 Arterial Blood Partial Pressure CO2 50 mmHg Arterial Blood Partial Pressure O2 151 mmHg Arterial Blood Oxygen Content 11.0 Vol % Arterial Blood Carboxyhemoglobin 1.0 % Arterial Blood Methemoglobin 1.6 % Blood Gas Hemoglobin 7.9 G/DL Oxygen Delivery Device VENTILATOR Blood Gas Ventilator Setting CPAP+5/PS10 Blood Gas Inspired Oxygen 40 % White Blood Count 19.2 TH/MM3 Red Blood Count 2.81 MIL/MM3 Hemoglobin 8.4 GM/DL Hematocrit 26.1 % Mean Corpuscular Volume 92.9 FL Mean Corpuscular Hemoglobin 30.0 PG Mean Corpuscular Hemoglobin Concent 32.3 % Red Cell Distribution Width 17.2 % Platelet Count 370 TH/MM3 Mean Platelet Volume 8.9 FL Neutrophils (%) (Auto) 97.2 % Lymphocytes (%) (Auto) 0.4 % Monocytes (%) (Auto) 2.2 % Eosinophils (%) (Auto) 0.0 % Basophils (%) (Auto) 0.2 % Neutrophils # (Auto) 18.7 TH/MM3 Lymphocytes # (Auto) 0.1 TH/MM3 Monocytes # (Auto) 0.4 TH/MM3 Eosinophils # (Auto) 0.0 TH/MM3 Basophils # (Auto) 0.0 TH/MM3 CBC Comment AUTO DIFF Differential Total Cells Counted 100 Neutrophils % (Manual) 84 % Band Neutrophils % 9 % Lymphocytes % 3 % Monocytes % 3 % Neutrophils # (Manual) 18.0 TH/MM3 Metamyelocytes 1 % Differential Comment FINAL DIFF MANUAL Toxic Granulation 1+ Platelet Estimate NORMAL Platelet Morphology Comment NORMAL Polychromasia 2.0 % Tear Drop Cells 1+ Ovalocytes 1+ Blood Urea Nitrogen 28 MG/DL Creatinine 1.17 MG/DL Random Glucose 134 MG/DL Calcium Level 8.7 MG/DL Sodium Level 151 MEQ/L Potassium Level 2.9 MEQ/L Chloride Level 110 MEQ/L Carbon Dioxide Level 31.8 MEQ/L Anion Gap 9 MEQ/L Estimat Glomerular Filtration Rate 60 ML/MIN Imaging Last Impressions Chest CT 01/07/18 0943 Signed Impressions: Service Date/Time: Sunday, January 07, 2018 10:59 - CONCLUSION: 1. Small right pleural effusion with adjacent compressive atelectasis. 2. Tiny left pleural effusion. 3. 7 mm noncalcified nodule within the left lower lobe laterally which is indeterminate. Followup CT the chest in 6 months would be helpful to confirm stability of this finding. 4. Scattered discoid atelectasis bilaterally. 5. Right axillary fluid collection measuring 6.0 x 3.1 x 4.3 cm consistent with possible seroma if the patient has had surgery in this location. 6. Right axillary lymphadenopathy with the largest lymph node measuring 16 mm. 7. Coronary artery calcifications. Fabina Villegas MD Chest X-Ray 01/07/18 0844 Signed Impressions: Service Date/Time: Sunday, January 07, 2018 09:26 - CONCLUSION: Small right pleural effusion. Bibasilar atelectasis and/or infiltrate. Cardiomegaly. Fabian Villegas MD Head CT 01/07/18 0802 Signed Impressions: Service Date/Time: Sunday, January 07, 2018 10:53 - CONCLUSION: 1. No acute intracranial abnormality. 2. Moderate mucosal thickening involving the maxillary and ethmoid sinuses bilaterally. Fabian Villegas MD Abdomen/Pelvis CT 01/07/18 0000 Signed Impressions: Service Date/Time: Sunday, January 07, 2018 10:59 - CONCLUSION: 1. Small right pleural effusion with adjacent compressive atelectasis. 2. 7 mm noncalcified nodule within the left lower lobe which is indeterminate. 3. 4.1 x 2.6 cm lobulated low density lesion within the right lobe of liver which is indeterminate on this unenhanced examination. Outpatient MRI of the abdomen with contrast may be helpful for further characterization of this finding. 4. 4 cm lower pole right renal cyst. 5. Degenerative changes and scoliosis of the thoracolumbar spine. 6. Enlarged prostate. 7. Uncomplicated colonic diverticulosis. 8. Gallbladder sludge. Fabian Villegas MD Objective Remarks GENERAL: Patient is 77 yo lying in bed in NAD SKIN: Warm and dry. HEAD: Normocephalic. EYES: No scleral icterus. No injection or drainage. NECK: Supple, trachea midline. No JVD or lymphadenopathy. CARDIOVASCULAR: Regular rate and rhythm without murmurs, gallops, or rubs. RESPIRATORY: Breath sounds equal bilaterally. No accessory muscle use. GASTROINTESTINAL: Abdomen soft, non-tender, nondistended. MUSCULOSKELETAL: No cyanosis, or edema. Neuro: Awake. A/P Assessment and Plan 1. resp Insuff- extubated 01/08 2. Pneumonia. 3. Acute kidney injury. 4. Lymphoma. 5. Elevated troponin. 6. Leukocytosis. 7. Anemia. 8. History of hypertension. 9. History of coronary artery disease. 10. Hyperlipidemia. 11. History of benign prostatic hyperplasia. Plan Neuro: Awake, monitor neuro status, avoid sedatives CT jd: No acute intracranial abnormalities Pulm: Continue with oxygen and maintain sats > 92%. Bronchodilators(DuoNeb, Symbicort), Solu-Medrol 40 mg IV q.12 hours. Check ABG and CXR NIPPV PRN for resp distress CT chest: Small right pleural effusion with adjacent compressive atelectasis. 7 mm noncalcified nodule within the left lower lobe laterally which is indeterminate. . Right axillary fluid collection measuring 6.0 x 3.1 x 4.3 cm consistent with possible seroma CV Place on Lopressor 50mg Q12: Monitor HR and BP keep MAP>65mmHG For 2D echo, cards is following- Dr. Gillespie For nuc. stress test tomorrow. : Monitor renal function, I's and O's and avoid nephrotoxins. Renal function is improving with Cr: 1.17 from 1.94 Change IVF D5W@42ml/hr, monitor sodium level. CT abd/pelvis: No hydronephrosis, stones or masses. Right renal cyst GI: Pepcid 10 mg IV q.12 hours. On Nepro @50ml/hr Heme: Monitor CBC , coags, Onc is following ID: On vancomycin, Zosyn and azithromycin. Monitor for signs of infections( Fever and WBC). Cultures: NGTD, d/c vanco Strep pneumonia, legionella urinary antigen, nasal washing to rule out influenza all pending. Endo: SSI with Accu-Cheks for glycemic control GI prophylaxis with Pepcid and DVT prophylaxis with SCDs for now. Lines: He has a left subclavian Infusaport and peripheral IVs. Level 2 Juju Mendez MD Jan 09, 2018 10:34
[2018-01-09] MEDS ORDERED: DEXTROSE 5% IN WATE 1000ML INJ 1,000 ML IV SCH (11:00)
[2018-01-09] MEDS: POTASSIUM CHLOR 40 MEQ PREMIX 100 ML IV PRN ×2 (11:12→15:22)
--- NOTE | 2018-01-09 11:25 | RADRPT ---
EXAM DATE/TIME: 01/09/2018 10:43 [facility] COMPARISON: CHEST SINGLE AP, January 07, 2018, 9:26. INDICATIONS : Short of breath MEDICAL HISTORY : Chronic obstructive pulmonary disease. lymphoma SURGICAL HISTORY : infusaport ENCOUNTER: Subsequent ACUITY: 3 days PAIN SCORE: 0/10 LOCATION: Bilateral chest FINDINGS: Endotracheal and nasogastric tubes have been removed. Improving lung aeration with decreasing air space disease is noted. Heart and mediastinal structures are stable. Left-sided [id number] remains in place. CONCLUSION: 1. Status post extubation. 2. Improving lung aeration with decreasing air space disease. 3. Otherwise stable chest Marc Navarro MD on January 09, 2018 at 11:21 Board Certified Radiologist. This report was verified electronically.
--- NOTE | 2018-01-09 13:35 | ECHRPT ---
Indication: ELEVATED TROPONINS CONCLUSIONS The left ventricular systolic function is normal with an estimated ejection fraction in the range of 55-60%. Normal left ventricular size. Wall thickness is normal. No regional wall motion abnormalities are present. Diffuse calcification of the aortic valve. The pulmonary valve is not well visualized. BP: 175 / 94 HR: 121 Rhythm: Sinus MEASUREMENTS (Male / Female) Normal Values Technical Quality:Fair 2D ECHO LV Diastolic Diameter PLAX 4.3 cm 4.2 - 5.9 / 3.9 - 5.3 cm LV Systolic Diameter PLAX 3.2 cm IVS Diastolic Thickness 0.9 cm 0.6 - 1.0 / 0.6 - 0.9 cm LVPW Diastolic Thickness 0.9 cm 0.6 - 1.0 / 0.6 - 0.9 cm LV Relative Wall Thickness 0.4 RV Internal Dim ED PLAX 2.8 cm LVOT Diameter 1.9 cm LA Systolic Diameter LX 2.6 cm 3.0 - 4.0 / 2.7 - 3.8 cm M-MODE Aortic Root Diameter MM 1.9 cm AV Cusp Separation MM 1.0 cm DOPPLER AV Peak Velocity 171.0 cm/s AV Peak Gradient 11.7 mmHg LVOT Peak Velocity 99.2 cm/s LVOT Peak Gradient 3.9 mmHg AV Area Cont Eq pk 1.6 cm MV Area PHT 7.3 cm Mitral E Point Velocity 94.8 cm/s Mitral A Point Velocity 117.0 cm/s Mitral E to A Ratio 0.8 PV Peak Velocity 97.7 cm/s PV Peak Gradient 3.8 mmHg FINDINGS LEFT VENTRICLE The left ventricular systolic function is normal with an estimated ejection fraction in the range of 55-60%. Normal left ventricular size. Wall thickness is normal. No regional wall motion abnormalities are present. RIGHT VENTRICLE Normal right ventricular size and systolic function. LEFT ATRIUM The left atrial size is normal. RIGHT ATRIUM The right atrial size is normal. ATRIAL SEPTUM Normal atrial septal thickness without atrial level shunting by limited color doppler interrogation. AORTA The aortic root and proximal ascending aorta are normal in size on limited imaging. MITRAL VALVE Structurally normal mitral valve. No mitral valve stenosis or regurgitation. AORTIC VALVE Trileaflet aortic valve. Diffuse calcification of the aortic valve. TRICUSPID VALVE Structurally normal tricuspid valve. No tricuspid valve stenosis or regurgitation. PULMONARY VALVE The pulmonary valve is not well visualized. VESSELS The inferior vena cava is normal in size. PERICARDIUM No pericardial effusion. Jose Koehler MD, FACC (Electronically Signed) Final Date:09 January 2018 13:34
[2018-01-09] MEDS: hydrALAZINE HCL 20 MG/ML VIAL IV PUSH PRN (15:23)
[2018-01-09 21:39] LABS: PHOSPHORUS 1.9 MG/DL (2.5-4.9)
[2018-01-09] MEDS: FAMOTIDINE 20 MG TAB PO SCH (22:52)
[2018-01-10] VITALS (20 sets, daily range): BP systolic 139–190; BP diastolic 63–78; PULSE 50–83; RESP 13–21; TEMP 98.6–98.9; O2SAT 82–100
[2018-01-10] MEDS: RESP: ALBUTEROL 2.5 MG/IPRATROPIUM 0.5 MG NEB (SCH) INH ×4 (02:42→21:40)
[2018-01-10] MEDS: INSULIN NovoLIN REGULAR SUPPLEMENTAL SCALE SQ SCH ×4 (04:00→21:05)
[2018-01-10] MEDS: CHLORHEXIDINE GLUCONATE 2 % 1 PACK (2 CLOTHS) TOP SCH (04:00)
[2018-01-10] MEDS: PIPERACIL-TAZO 3.375 GM PREMIX 50 ML IV SCH ×3 (05:00→18:19)
[2018-01-10 07:50] LABS: AUTOMATED NEUTROPHIL # 18.6 TH/MM3 (1.8-7.7); HEMATOCRIT 26.1 % (39.0-51.0); HEMOGLOBIN 8.3 GM/DL (13.0-17.0); LYMPH % 0.6 % (9.0-44.0); LYMPHOCYTE # 0.1 TH/MM3 (1.0-4.8); MEAN CELL VOLUME 93.2 FL (80.0-100.0); MEAN CORPUSCULAR HEMOGLOBIN 29.8 PG (27.0-34.0); MEAN PLATELET VOLUME 9.3 FL (7.0-11.0); MONO % 4.8 % (0.0-8.0); MONOCYTE # 0.9 TH/MM3 (0-0.9); NEUT % 94.6 % (16.0-70.0); PLATELET COUNT 368 TH/MM3 (150-450); RED CELL DISTRIBUTION WIDTH 17.4 % (11.6-17.2); WHITE BLOOD COUNT 19.7 TH/MM3 (4.0-11.0)
[2018-01-10 08:27] LABS: CALCIUM 8.5 MG/DL (8.5-10.1); CREATININE 0.99 MG/DL (0.60-1.30); MAGNESIUM 1.7 MG/DL (1.5-2.5); PHOSPHORUS 1.7 MG/DL (2.5-4.9)
[2018-01-10 08:33] LABS: BANDS 14 % (0-6); MONOCYTES 3 % (0-8); NEUTROPHIL # MANUAL DIFF 19.1 TH/MM3 (1.8-7.7); POLYS (SEG NEUTROPHILS) 83 % (16-70)
[2018-01-10 08:34] LABS: OVALOCYTES 1+ (NORMAL)
--- NOTE | 2018-01-10 09:14 | HHI.CCPN ---
Subjective Remarks/Hospital Course Patient is a 77-year-old male with a past medical history of coronary artery disease, hypertension, hyperlipidemia, BPH and lymphoma, on radiation treatment and chemotherapy. He presented to [facility] ED from a rehab facility for lethargy, hypoxemia, and low saturation. Initially, he was placed on a BiPAP and ABG was performed, which showed acute hypercapnic respiratory failure with a pH of 7.14, CO2 of 103, PaO2 of 89, bicarbonate 34, and saturation 92%. He was subsequently intubated with etomidate, succinylcholine, and placed on full mechanical ventilation. A chest x-ray in the ER showed bibasilar patchiness and small right pleural effusion. According to the patient's family, he underwent a blood transfusion on 01/12/2018 after he received his first cycle of chemotherapy and then shortly after he was readmitted in [place] for fever, pneumonia and sepsis. The patient was eventually discharged to a rehab facility. There is no history of home oxygen or use of bronchodilators. The patient quit smoking in October and used to smoke a pack and half a day for about 60 years. His laboratory data is significant for leukocytosis with a WBC of 17.7, acute kidney injury with a creatinine of 1.82. His lactic acid level measured at 0.8. Chest x-ray post- intubation showed ET tube above the nelson, left subclavian Infusaport in place , bibasilar atelectasis and/or infiltrate and small right pleural effusion. When seen, the patient is sedated with Diprivan and on full mechanical ventilation. His blood pressure 175/94 with a pulse of 100. The patient is afebrile. 01/08 No events overnight. Remains intubated on CPAP awake, alert.Afebrile. 01/09 Patient s/p extubation yesterday. Awake somewhat confused. Afebrile. 01/10 No events overnight. Awake and alert, for stress test this morning. Afebrile. Objective Vital Signs Date Time Temp Pulse Resp B/P (MAP) Pulse Ox O2 Delivery O2 Flow Rate FiO2 01/10/18 08:14 97 Nasal Cannula 2.00 01/10/18 06:00 83 01/10/18 04:00 98.7 20 161/78 (105) 01/08/18 10:23 40 Intake and Output 01/10/18 01/10/18 01/11/18 08:00 16:00 00:00 Output Total 400 ml Balance -400 ml Result Diagram: 01/10/18 0635 01/10/18 0635 Other Results Laboratory Tests Test 01/09/18 12:00 01/09/18 19:34 01/10/18 06:35 Blood Gas Puncture Site LT RADIAL Blood Gas Patient Temperature 98.6 Blood Gas HCO3 31 mmol/L Blood Gas Base Excess 6.5 mmol/L Blood Gas Oxygen Saturation 91 % Arterial Blood pH 7.41 Arterial Blood Partial Pressure CO2 50 mmHg Arterial Blood Partial Pressure O2 68 mmHg Arterial Blood Oxygen Content 11.1 Vol % Arterial Blood Carboxyhemoglobin 0.9 % Arterial Blood Methemoglobin 1.2 % Blood Gas Hemoglobin 8.7 G/DL Oxygen Delivery Device NASAL CANNULA Blood Gas Liter Flow 2 L/M Blood Gas Inspired Oxygen 28 % Potassium Level 3.7 MEQ/L 3.5 MEQ/L Phosphorus Level 1.9 MG/DL 1.7 MG/DL White Blood Count 19.7 TH/MM3 Red Blood Count 2.80 MIL/MM3 Hemoglobin 8.3 GM/DL Hematocrit 26.1 % Mean Corpuscular Volume 93.2 FL Mean Corpuscular Hemoglobin 29.8 PG Mean Corpuscular Hemoglobin Concent 32.0 % Red Cell Distribution Width 17.4 % Platelet Count 368 TH/MM3 Mean Platelet Volume 9.3 FL Neutrophils (%) (Auto) 94.6 % Lymphocytes (%) (Auto) 0.6 % Monocytes (%) (Auto) 4.8 % Eosinophils (%) (Auto) 0.0 % Basophils (%) (Auto) 0.0 % Neutrophils # (Auto) 18.6 TH/MM3 Lymphocytes # (Auto) 0.1 TH/MM3 Monocytes # (Auto) 0.9 TH/MM3 Eosinophils # (Auto) 0.0 TH/MM3 Basophils # (Auto) 0.0 TH/MM3 CBC Comment AUTO DIFF Differential Total Cells Counted 100 Neutrophils % (Manual) 83 % Band Neutrophils % 14 % Monocytes % 3 % Neutrophils # (Manual) 19.1 TH/MM3 Differential Comment FINAL DIFF MANUAL Platelet Estimate NORMAL Platelet Morphology Comment NORMAL Ovalocytes 1+ Blood Urea Nitrogen 26 MG/DL Creatinine 0.99 MG/DL Random Glucose 128 MG/DL Calcium Level 8.5 MG/DL Magnesium Level 1.7 MG/DL Sodium Level 149 MEQ/L Chloride Level 111 MEQ/L Carbon Dioxide Level 33.0 MEQ/L Anion Gap 5 MEQ/L Estimat Glomerular Filtration Rate 73 ML/MIN Imaging Last Impressions Chest X-Ray 01/09/18 0000 Signed Impressions: Service Date/Time: Tuesday, January 09, 2018 10:43 - CONCLUSION: 1. Status post extubation. 2. Improving lung aeration with decreasing air space disease. 3. Otherwise stable chest Marc Navarro MD Chest CT 01/07/18 0943 Signed Impressions: Service Date/Time: Sunday, January 07, 2018 10:59 - CONCLUSION: 1. Small right pleural effusion with adjacent compressive atelectasis. 2. Tiny left pleural effusion. 3. 7 mm noncalcified nodule within the left lower lobe laterally which is indeterminate. Followup CT the chest in 6 months would be helpful to confirm stability of this finding. 4. Scattered discoid atelectasis bilaterally. 5. Right axillary fluid collection measuring 6.0 x 3.1 x 4.3 cm consistent with possible seroma if the patient has had surgery in this location. 6. Right axillary lymphadenopathy with the largest lymph node measuring 16 mm. 7. Coronary artery calcifications. Fabian Villegas MD Head CT 01/07/18 0802 Signed Impressions: Service Date/Time: Sunday, January 07, 2018 10:53 - CONCLUSION: 1. No acute intracranial abnormality. 2. Moderate mucosal thickening involving the maxillary and ethmoid sinuses bilaterally. Fabian Villegas MD Abdomen/Pelvis CT 01/07/18 0000 Signed Impressions: Service Date/Time: Sunday, January 07, 2018 10:59 - CONCLUSION: 1. Small right pleural effusion with adjacent compressive atelectasis. 2. 7 mm noncalcified nodule within the left lower lobe which is indeterminate. 3. 4.1 x 2.6 cm lobulated low density lesion within the right lobe of liver which is indeterminate on this unenhanced examination. Outpatient MRI of the abdomen with contrast may be helpful for further characterization of this finding. 4. 4 cm lower pole right renal cyst. 5. Degenerative changes and scoliosis of the thoracolumbar spine. 6. Enlarged prostate. 7. Uncomplicated colonic diverticulosis. 8. Gallbladder sludge. Fabian Villegas MD Objective Remarks GENERAL: Patient is 77 yo lying in bed in NAD SKIN: Warm and dry. HEAD: Normocephalic. EYES: No scleral icterus. No injection or drainage. NECK: Supple, trachea midline. No JVD or lymphadenopathy. CARDIOVASCULAR: Regular rate and rhythm without murmurs, gallops, or rubs. RESPIRATORY: Breath sounds equal bilaterally. No accessory muscle use. GASTROINTESTINAL: Abdomen soft, non-tender, nondistended. MUSCULOSKELETAL: No cyanosis, or edema. Neuro: Awake. A/P Assessment and Plan 1. resp Insuff- extubated 01/08 2. Pneumonia. 3. Acute kidney injury..Resolved 4. Lymphoma. 5. Elevated troponin. 6. Leukocytosis. 7. Anemia. 8. History of hypertension. 9. History of coronary artery disease. 10. Hyperlipidemia. 11. History of benign prostatic hyperplasia. Plan Neuro: Awake, monitor neuro status, avoid sedatives CT jd: No acute intracranial abnormalities Pulm: Continue with oxygen and maintain sats > 92%. Bronchodilators(DuoNeb, Symbicort), decrease Solu-Medrol 40 mg IV daily NIPPV PRN for resp distress CT chest: Small right pleural effusion with adjacent compressive atelectasis. 7 mm noncalcified nodule within the left lower lobe laterally which is indeterminate. . Right axillary fluid collection measuring 6.0 x 3.1 x 4.3 cm consistent with possible seroma CV on Lopressor 50mg Q12: Monitor HR and BP keep MAP>65mmHG Cards is following- Dr. Gillespie For nuc. stress test today Echo showed EF 55-60%, no RWMA : Monitor renal function, I's and O's and avoid nephrotoxins. Electrolytes replacement as needed CT abd/pelvis: No hydronephrosis, stones or masses. Right renal cyst GI: Pepcid 10 mg PO q.12 hours. On PO diet Heme: Monitor CBC , coags, Onc is following ID: On Zosyn and azithromycin. Monitor for signs of infections(Fever and WBC). Cultures: NGTD, Strep pneumonia, legionella urinary antigen negative CXR 01/09 improving lung aeration with decrease airspace disease Endo: SSI with Accu-Cheks for glycemic control GI prophylaxis with Pepcid and DVT prophylaxis with SCDs for now. Lines: left subclavian Infusaport and peripheral IVs. Level 2 Juju Mendez MD Jan 10, 2018 09:14
[2018-01-10] MEDS: BUDESONIDE-FORMOTEROL 160/4.5 MCG INHALER INH SCH ×2 (09:30→21:00)
[2018-01-10] MEDS: AZITHROMYCIN INJ 500 MG in SODIUM CHLOR 0.9% 250 ML INJ 250 ML IV SCH (09:30)
[2018-01-10] MEDS: FAMOTIDINE 20 MG TAB PO SCH ×2 (09:30→21:00)
[2018-01-10] MEDS: DOCUSATE SODIUM 50 MG/SENNA 8.6 MG TAB PO SCH ×2 (09:31→21:00)
[2018-01-10] MEDS: METOPROLOL TARTRATE 50 MG TAB PO SCH ×2 (09:44→21:00)
[2018-01-10] MEDS ORDERED: REGADENOSON INJ 0.4 MG/5 ML SYR ONE (10:53)
--- NOTE | 2018-01-10 14:19 | RADRPT ---
EXAM DATE/TIME: 01/10/2018 10:38 [place] COMPARISON: No previous studies available for comparison. INDICATIONS : Elevated troponins and respiratory failure. Coronary artery disease. DOSE: 25.4 mCi Tc99m Myoview at stress. 8.5 mCi Tc99m Myoview at rest. 0.4 mg Lexiscan STRESS SYMPTOMS: Dyspnea and lightheaded. EJECTION FRACTION: 57% MEDICAL HISTORY : Hypertension. Chronic obstructive pulmonary disease. SURGICAL HISTORY : Appendectomy. ENCOUNTER: Initial ACUITY: 1 day PAIN SCALE: 0/10 LOCATION: chest TECHNIQUE: The patient underwent pharmacologic stress with infusion of prescribed dose. Continuous ECG tracing was monitored during stress. Gated SPECT imaging was performed after stress and conventional SPECT i maging was performed at rest. The examination was performed on a SPECT/CT scanner, both attenuation and non-corrected datasets were reviewed. FINDINGS: DISTRIBUTION: The maximum perfused segment at stress is in the lateral wall. PERFUSION STUDY: Decreased perfusion is identified in both the anterior and inferior callaway which remains unchanged bet ween stress and rest. There are no reversible perfusion abnormalities.. GATED STUDY: There is intact wall motion and thickening without hypokinetic or dyskinetic segments. CONCLUSION: 1. No evidence of stress-induced reversible perfusion abnormality. 2. Fixed hypoperfusion in the anterior inferior callaway 3. Well-maintained lung motion and ejection fraction. RISK CATEGORY: Low (<1% Annual Mortality Rate) Marc Navarro MD on January 10, 2018 at 14:13 Board Certified Radiologist. This report was verified electronically.
[2018-01-10] MEDS ORDERED: PHARMACY ORDERED LAB ONE (16:45)
[2018-01-10] MEDS: hydrALAZINE HCL 20 MG/ML VIAL IV PUSH PRN (18:19)
--- NOTE | 2018-01-10 18:31 | PD.ONC.PN ---
Subjective Subjective Remarks Resting comfortably in bed in no distress. Family at bedside. Objective Data Date Time Temp Pulse Resp B/P (MAP) Pulse Ox O2 Delivery O2 Flow Rate FiO2 01/10/18 15:00 53 01/10/18 14:00 69 01/10/18 10:00 69 01/10/18 10:00 69 18 82 01/10/18 09:01 60 17 167/73 (104) 96 01/10/18 09:01 60 01/10/18 09:00 61 16 190/77 (114) 95 01/10/18 09:00 61 01/10/18 08:24 64 15 167/78 (107) 99 01/10/18 08:24 64 01/10/18 08:14 97 Nasal Cannula 2.00 01/10/18 08:01 50 13 189/78 (115) 97 01/10/18 08:01 50 01/10/18 08:00 98.6 50 15 189/78 (115) 98 01/10/18 08:00 50 01/10/18 06:00 83 01/10/18 04:00 98.7 80 20 161/78 (105) 98 01/10/18 04:00 80 01/10/18 02:00 55 01/10/18 00:00 98.9 52 16 169/75 (106) 99 01/10/18 00:00 52 01/09/18 22:00 63 01/09/18 20:08 99 Nasal Cannula 2.00 01/09/18 20:00 98.7 65 20 135/62 (86) 95 01/09/18 20:00 61 01/09/18 19:00 89 01/10/18 01/10/18 01/10/18 07:00 15:00 23:00 Intake Total 50 ml 300 ml Output Total 400 ml Balance -350 ml 300 ml Result Diagram: 01/10/1835 01/10/1835 Laboratory Results Laboratory Tests Test 01/09/18 19:34 01/10/18 06:35 Potassium Level 3.7 MEQ/L 3.5 MEQ/L Phosphorus Level 1.9 MG/DL 1.7 MG/DL White Blood Count 19.7 TH/MM3 Red Blood Count 2.80 MIL/MM3 Hemoglobin 8.3 GM/DL Hematocrit 26.1 % Mean Corpuscular Volume 93.2 FL Mean Corpuscular Hemoglobin 29.8 PG Mean Corpuscular Hemoglobin Concent 32.0 % Red Cell Distribution Width 17.4 % Platelet Count 368 TH/MM3 Mean Platelet Volume 9.3 FL Neutrophils (%) (Auto) 94.6 % Lymphocytes (%) (Auto) 0.6 % Monocytes (%) (Auto) 4.8 % Eosinophils (%) (Auto) 0.0 % Basophils (%) (Auto) 0.0 % Neutrophils # (Auto) 18.6 TH/MM3 Lymphocytes # (Auto) 0.1 TH/MM3 Monocytes # (Auto) 0.9 TH/MM3 Eosinophils # (Auto) 0.0 TH/MM3 Basophils # (Auto) 0.0 TH/MM3 CBC Comment AUTO DIFF Differential Total Cells Counted 100 Neutrophils % (Manual) 83 % Band Neutrophils % 14 % Monocytes % 3 % Neutrophils # (Manual) 19.1 TH/MM3 Differential Comment FINAL DIFF MANUAL Platelet Estimate NORMAL Platelet Morphology Comment NORMAL Ovalocytes 1+ Blood Urea Nitrogen 26 MG/DL Creatinine 0.99 MG/DL Random Glucose 128 MG/DL Calcium Level 8.5 MG/DL Magnesium Level 1.7 MG/DL Sodium Level 149 MEQ/L Chloride Level 111 MEQ/L Carbon Dioxide Level 33.0 MEQ/L Anion Gap 5 MEQ/L Estimat Glomerular Filtration Rate 73 ML/MIN Culture Results Microbiology Date/Time Source Procedure Growth Status 01/09/18 12:30 Urine Catheterized Urine Legionella Antigen - Final PRESUMPTIVE NEGATIVE FOR LEGIONELLA P... Complete 01/09/18 12:30 Urine Catheterized Urine Streptococcus pneumoniae Antigen (M - Final PRESUMPTIVE NEGATIVE FOR STREPTOCOCCU... Complete Imaging Studies Last 24 hours Impressions Myocardial Perfusion Scan Nuc Med 01/10/18 0000 Signed Impressions: Service Date/Time: Wednesday, January 10, 2018 10:38 - CONCLUSION: 1. No evidence of stress-induced reversible perfusion abnormality. 2. Fixed hypoperfusion in the anterior inferior callaway 3. Well-maintained lung motion and ejection fraction. RISK CATEGORY: Low (<1%% Annual Mortality Rate) Marc Navarro MD Administered Medications Medications (Trade) Dose Ordered Sig/Андрей Route PRN Reason Start Time Stop Time Status Last Admin Dose Admin Sodium Chloride (NS Flush) 2 ml UNSCH PRN IVF FLUSH AFTER USING IV ACCESS 01/07/18 08:45 01/07/18 09:05 Albuterol/ Ipratropium (Duoneb Neb) 1 ampule Q6HR NEB INH 01/07/18 10:00 01/10/18 16:02 Chlorhexidine Gluconate (Chlorhexidine 2% Cloth) 3 pack Taper DAILY@04 TOP 01/08/18 04:00 01/04/19 03:59 01/10/18 04:00 Senna/Docusate Sodium (Claire-Colace) 1 tab BID PO 01/07/18 21:00 01/10/18 09:31 Azithromycin 500 mg/Sodium Chloride 250 ml @ 250 mls/hr Q24H IV 01/08/18 09:00 01/10/18 09:30 Insulin Human Regular (NovoLIN R SUPPLEMENTAL SCALE) 1 Q6H SQ 01/07/18 10:00 01/09/18 22:00 Piperacillin Sod/ Tazobactam Sod 50 ml @ 200 mls/hr Q6H IV 01/08/18 11:00 01/10/18 09:31 Budesonide/ Formoterol Fumarate (Symbicort 160-4.5 Mcg Inh) 2 puff Q12HR INH 01/08/18 13:00 01/10/18 09:30 Metoprolol Tartrate (Lopressor) 50 mg Q12HR PO 01/08/18 21:00 01/10/18 09:44 Hydralazine HCl (Apresoline Inj) 10 mg Q4H PRN IV PUSH SYS BP GREATER THAN 160 MMHG 01/08/18 16:45 01/09/18 15:23 Potassium Chloride 100 ml @ 50 mls/hr Q2H PRN IV For Potassium 2.8 - 3.2 mEq/L 01/09/18 10:30 01/09/18 15:22 Famotidine (Pepcid) 10 mg BID PO 01/09/18 21:00 01/10/18 09:30 Objective Remarks GENERAL: frail man in no distress HEAD: Normocephalic. EYES: No scleral icterus. No injection or drainage. RESPIRATORY: No accessory muscle use, nasal cannula in place NEUROLOGICAL: No obvious focal deficit. Assessment/Plan Assessment 1. 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 Maureen Nunez. 2. Leukocytosis with left shift. Metamyelocytes, myelocytes present on differential from admission, likely reactive due to acute infection/inflammation. History of growth factor support 3. Anemia with history of CHOP chemotherapy as well as blood transfusion at prior hospitalization. Continue to monitor counts. 4. Respiratory failure, status post extubation. Fiordaliza Coates MD Jan 10, 2018 18:31
[2018-01-11] VITALS (20 sets, daily range): BP systolic 136–214; BP diastolic 63–84; PULSE 56–93; RESP 14–24; TEMP 97.7–98.7; O2SAT 92–100
[2018-01-11] MEDS: PIPERACIL-TAZO 3.375 GM PREMIX 50 ML IV SCH ×5 (00:35→22:41)
[2018-01-11] MEDS: RESP: ALBUTEROL 2.5 MG/IPRATROPIUM 0.5 MG NEB (SCH) INH ×2 (03:50→08:56)
[2018-01-11] MEDS: INSULIN NovoLIN REGULAR SUPPLEMENTAL SCALE SQ SCH ×4 (04:00→22:00)
[2018-01-11] MEDS: CHLORHEXIDINE GLUCONATE 2 % 1 PACK (2 CLOTHS) TOP SCH (04:00)
[2018-01-11 05:16] LABS: AUTOMATED NEUTROPHIL # 12.6 TH/MM3 (1.8-7.7); BASOPHIL % 0.1 % (0.0-2.0); EOSINOPHIL % 0.1 % (0.0-4.0); HEMATOCRIT 26.7 % (39.0-51.0); HEMOGLOBIN 8.6 GM/DL (13.0-17.0); LYMPH % 0.9 % (9.0-44.0); LYMPHOCYTE # 0.1 TH/MM3 (1.0-4.8); MEAN CELL VOLUME 94.6 FL (80.0-100.0); MEAN CORPUSCULAR HEMOGLOBIN 30.5 PG (27.0-34.0); MEAN CORPUSCULAR HGB CONC 32.3 % (32.0-36.0); MEAN PLATELET VOLUME 9.4 FL (7.0-11.0); MONO % 4.9 % (0.0-8.0); MONOCYTE # 0.7 TH/MM3 (0-0.9); PLATELET COUNT 327 TH/MM3 (150-450); RED BLOOD COUNT 2.82 MIL/MM3 (4.50-5.90); WHITE BLOOD COUNT 13.4 TH/MM3 (4.0-11.0)
[2018-01-11 05:45] LABS: BICARBONATE 33.8 MEQ/L (21.0-32.0); CALCIUM 8.7 MG/DL (8.5-10.1); CREATININE 0.91 MG/DL (0.60-1.30); PHOSPHORUS 2.1 MG/DL (2.5-4.9)
[2018-01-11] MEDS: DOCUSATE SODIUM 50 MG/SENNA 8.6 MG TAB PO SCH ×2 (08:40→22:36)
[2018-01-11] MEDS: METOPROLOL TARTRATE 50 MG TAB PO SCH ×2 (08:41→22:36)
[2018-01-11] MEDS: AZITHROMYCIN INJ 500 MG in SODIUM CHLOR 0.9% 250 ML INJ 250 ML IV SCH (08:41)
[2018-01-11] MEDS: BUDESONIDE-FORMOTEROL 160/4.5 MCG INHALER INH SCH ×2 (08:41→22:35)
[2018-01-11] MEDS: FAMOTIDINE 20 MG TAB PO SCH ×2 (08:41→22:36)
[2018-01-11] MEDS: SODIUM CHLORIDE 0.9% FLUSH 10 ML FLUSH IVF PRN (08:41)
[2018-01-11] MEDS: methylPREDNISolone SOD SUCC 40 MG/1 ML VIAL IV PUSH SCH (08:41)
[2018-01-11] MEDS ORDERED: POTASSIUM CHLOR 40 MEQ PREMIX 100 ML IV ONE (08:45)
[2018-01-11] MEDS ORDERED: POTASSIUM PHOSPHATE INJ 30 MMOL in SODIUM CHLOR 0.9% 250 ML INJ 250 ML IV ONE (10:00)
--- NOTE | 2018-01-11 13:58 | HHI.CCPN ---
Subjective Remarks/Hospital Course Patient is a 77-year-old male with a past medical history of coronary artery disease, hypertension, hyperlipidemia, BPH and lymphoma, on radiation treatment and chemotherapy. He presented to [facility] ED from a rehab facility for lethargy, hypoxemia, and low saturation. Initially, he was placed on a BiPAP and ABG was performed, which showed acute hypercapnic respiratory failure with a pH of 7.14, CO2 of 103, PaO2 of 89, bicarbonate 34, and saturation 92%. He was subsequently intubated with etomidate, succinylcholine, and placed on full mechanical ventilation. A chest x-ray in the ER showed bibasilar patchiness and small right pleural effusion. According to the patient's family, he underwent a blood transfusion on 01/12/2018 after he received his first cycle of chemotherapy and then shortly after he was readmitted in [place] for fever, pneumonia and sepsis. The patient was eventually discharged to a rehab facility. There is no history of home oxygen or use of bronchodilators. The patient quit smoking in October and used to smoke a pack and half a day for about 60 years. His laboratory data is significant for leukocytosis with a WBC of 17.7, acute kidney injury with a creatinine of 1.82. His lactic acid level measured at 0.8. Chest x-ray post- intubation showed ET tube above the nelson, left subclavian Infusaport in place , bibasilar atelectasis and/or infiltrate and small right pleural effusion. When seen, the patient is sedated with Diprivan and on full mechanical ventilation. His blood pressure 175/94 with a pulse of 100. The patient is afebrile. 01/08 No events overnight. Remains intubated on CPAP awake, alert.Afebrile. 01/09 Patient s/p extubation yesterday. Awake somewhat confused. Afebrile. 01/10 No events overnight. Awake and alert, for stress test this morning. Afebrile. 01/11: Resting comfortably in bed. Confusion since extubation persists. Objective Vital Signs Date Time Temp Pulse Resp B/P (MAP) Pulse Ox O2 Delivery O2 Flow Rate FiO2 01/11/18 10:00 90 01/11/18 09:00 20 167/77 (107) 96 01/11/18 08:54 Nasal Cannula 2.00 01/11/18 08:00 97.7 01/08/18 10:23 40 Intake and Output 01/11/18 01/11/18 01/12/18 08:00 16:00 00:00 Intake Total 40 ml Output Total 300 ml Balance -260 ml Result Diagram: 01/11/18 0330 01/11/18 0330 Other Results Microbiology Date/Time Source Procedure Growth Status 01/09/18 12:30 Urine Catheterized Urine Legionella Antigen - Final PRESUMPTIVE NEGATIVE FOR LEGIONELLA P... Complete 01/09/18 12:30 Urine Catheterized Urine Streptococcus pneumoniae Antigen (M - Final PRESUMPTIVE NEGATIVE FOR STREPTOCOCCU... Complete Imaging Last Impressions Chest X-Ray 01/09/18 0000 Signed Impressions: Service Date/Time: Tuesday, January 09, 2018 10:43 - CONCLUSION: 1. Status post extubation. 2. Improving lung aeration with decreasing air space disease. 3. Otherwise stable chest Marc aNvarro MD Chest CT 01/07/18 0943 Signed Impressions: Service Date/Time: Sunday, January 07, 2018 10:59 - CONCLUSION: 1. Small right pleural effusion with adjacent compressive atelectasis. 2. Tiny left pleural effusion. 3. 7 mm noncalcified nodule within the left lower lobe laterally which is indeterminate. Followup CT the chest in 6 months would be helpful to confirm stability of this finding. 4. Scattered discoid atelectasis bilaterally. 5. Right axillary fluid collection measuring 6.0 x 3.1 x 4.3 cm consistent with possible seroma if the patient has had surgery in this location. 6. Right axillary lymphadenopathy with the largest lymph node measuring 16 mm. 7. Coronary artery calcifications. Fabian Villegas MD Head CT 01/07/18 0802 Signed Impressions: Service Date/Time: Sunday, January 07, 2018 10:53 - CONCLUSION: 1. No acute intracranial abnormality. 2. Moderate mucosal thickening involving the maxillary and ethmoid sinuses bilaterally. Fabian Villegas MD Abdomen/Pelvis CT 01/07/18 0000 Signed Impressions: Service Date/Time: Sunday, January 07, 2018 10:59 - CONCLUSION: 1. Small right pleural effusion with adjacent compressive atelectasis. 2. 7 mm noncalcified nodule within the left lower lobe which is indeterminate. 3. 4.1 x 2.6 cm lobulated low density lesion within the right lobe of liver which is indeterminate on this unenhanced examination. Outpatient MRI of the abdomen with contrast may be helpful for further characterization of this finding. 4. 4 cm lower pole right renal cyst. 5. Degenerative changes and scoliosis of the thoracolumbar spine. 6. Enlarged prostate. 7. Uncomplicated colonic diverticulosis. 8. Gallbladder sludge. Fabian Villegas MD Objective Remarks GENERAL: Patient is 77 yo lying in bed in NAD SKIN: Warm and dry. HEAD: Normocephalic. EYES: No scleral icterus. No injection or drainage. NECK: Supple, trachea midline. No JVD or lymphadenopathy. CARDIOVASCULAR: Regular rate and rhythm without murmurs, gallops, or rubs. RESPIRATORY: Breath sounds equal bilaterally. No accessory muscle use. GASTROINTESTINAL: Abdomen soft, non-tender, nondistended. MUSCULOSKELETAL: No cyanosis, or edema. Neuro: Awake. Has some confusion, moving all 4 extremities. A/P Assessment and Plan 1. resp Insuff- extubated 01/08 2. Pneumonia. 3. Acute kidney injury..Resolved 4. Lymphoma. 5. Elevated troponin. 6. Leukocytosis. 7. Anemia. 8. History of hypertension. 9. History of coronary artery disease. 10. Hyperlipidemia. 11. History of benign prostatic hyperplasia. Plan Neuro: Awake, monitor neuro status, avoid sedatives CT jd: No acute intracranial abnormalities Pulm: Continue with oxygen and maintain sats > 92%. Bronchodilators(DuoNeb, Symbicort), decrease Solu-Medrol 40 mg IV daily NIPPV PRN for resp distress CT chest: Small right pleural effusion with adjacent compressive atelectasis. 7 mm noncalcified nodule within the left lower lobe laterally which is indeterminate. . Right axillary fluid collection measuring 6.0 x 3.1 x 4.3 cm consistent with possible seroma CV on Lopressor 50mg Q12: Monitor HR and BP keep MAP>65mmHG Cards is following- Dr. Gillespie For nuc. stress test today Echo showed EF 55-60%, no RWMA : Monitor renal function, I's and O's and avoid nephrotoxins. Electrolytes replacement as needed CT abd/pelvis: No hydronephrosis, stones or masses. Right renal cyst GI: Pepcid 10 mg PO q.12 hours. On PO diet Heme: Monitor CBC , coags, Onc is following ID: On Zosyn and azithromycin. Monitor for signs of infections(Fever and WBC). Cultures: NGTD, Strep pneumonia, legionella urinary antigen negative CXR 01/09 improving lung aeration with decrease airspace disease Endo: SSI with Accu-Cheks for glycemic control GI prophylaxis with Pepcid and DVT prophylaxis with SCDs for now. Lines: left subclavian Infusaport and peripheral IVs. Consult and transfer to hospitalist service for further medical management, critical care will be signing off, please reconsult if needed. Level 2 Case Nina MD Jan 11, 2018 13:58
[2018-01-11] MEDS: hydrALAZINE HCL 20 MG/ML VIAL IV PUSH PRN (18:16)
[2018-01-12] VITALS (18 sets, daily range): BP systolic 137–183; BP diastolic 61–79; PULSE 52–71; RESP 13–24; TEMP 97.5–98.8; O2SAT 84–100
[2018-01-12] MEDS: CHLORHEXIDINE GLUCONATE 2 % 1 PACK (2 CLOTHS) TOP SCH (04:00)
[2018-01-12] MEDS: INSULIN NovoLIN REGULAR SUPPLEMENTAL SCALE SQ SCH ×4 (04:00→20:46)
[2018-01-12] MEDS: PIPERACIL-TAZO 3.375 GM PREMIX 50 ML IV SCH ×4 (05:00→23:38)
[2018-01-12] MEDS: DOCUSATE SODIUM 50 MG/SENNA 8.6 MG TAB PO SCH ×2 (09:00→20:42)
[2018-01-12 09:05] LABS: PHOSPHORUS 2.9 MG/DL (2.5-4.9)
[2018-01-12] MEDS: BUDESONIDE-FORMOTEROL 160/4.5 MCG INHALER INH SCH ×2 (09:26→20:42)
[2018-01-12] MEDS: methylPREDNISolone SOD SUCC 40 MG/1 ML VIAL IV PUSH SCH (09:26)
[2018-01-12] MEDS: AZITHROMYCIN INJ 500 MG in SODIUM CHLOR 0.9% 250 ML INJ 250 ML IV SCH (09:26)
[2018-01-12] MEDS: FAMOTIDINE 20 MG TAB PO SCH ×2 (09:26→20:42)
[2018-01-12] MEDS: METOPROLOL TARTRATE 50 MG TAB PO SCH ×2 (09:26→20:42)
--- NOTE | 2018-01-12 10:20 | HHI.PR ---
Subjective Remarks Nursing denies any deterioration since last night. Patient himself denies any shortness of breath. Denies wearing home oxygen. Objective Vital Signs Date Time Temp Pulse Resp B/P (MAP) Pulse Ox O2 Delivery O2 Flow Rate FiO2 01/12/18 06:00 59 01/12/18 04:00 98.0 52 13 161/64 (96) 95 01/12/18 04:00 52 01/12/18 02:00 58 01/12/18 00:00 71 01/12/18 00:00 98.4 71 21 179/74 (109) 84 01/11/18 22:25 98 Nasal Cannula 2.00 01/11/18 22:00 61 01/11/18 20:00 98.1 72 22 136/63 (87) 95 01/11/18 20:00 72 01/11/18 18:00 59 01/11/18 17:00 59 15 178/77 (110) 99 01/11/18 17:00 59 01/11/18 16:00 98.3 61 17 154/69 (97) 97 01/11/18 16:00 58 01/11/18 15:00 62 01/11/18 15:00 62 22 169/70 (103) 01/11/18 14:00 63 22 158/73 (101) 92 01/11/18 14:00 67 01/11/18 13:00 65 01/11/18 13:00 65 21 175/74 (107) 95 01/11/18 12:00 73 01/11/18 12:00 98.4 67 24 155/73 (100) 99 01/11/18 11:00 64 18 186/79 (114) 100 01/11/18 11:00 70 I/O 01/11/18 01/11/18 01/11/18 01/12/18 01/12/18 01/12/18 07:00 15:00 23:00 07:00 15:00 23:00 Intake Total 90 ml 400 ml 920 ml 270 ml Output Total 300 ml 752 ml 650 ml Balance -210 ml 400 ml 168 ml -380 ml Intake Oral 40 ml 660 ml 120 ml IV Total 50 ml 400 ml 260 ml 150 ml Output Urine Total 300 ml 750 ml 650 ml Stool Total 0 ml 2 ml 0 ml # Bowel Movements 0 0 0 Result Diagram: 01/11/18 0330 01/12/18 0730 Objective Remarks Coarse breath sounds bilaterally, unlabored breathing, on nasal cannula, no cyanosis A/P Assessment and Plan 77-year-old male admitted with acute hypoxic respiratory failure. Underwent intubated course, eventually extubated. Acute hypoxic respiratory failure likely 2/2 PNA - still requiring 2 L, wean as tolerated, continue DuoNeb Symbicort and Solu- Medrol continue with oxygen and maintain sats > 92%. - CT chest: Small right pleural effusion with adjacent compressive atelectasis. 7 mm noncalcified nodule within the left lower lobe laterally which is indeterminate. . Right axillary fluid collection measuring 6.0 x 3.1 x 4.3 cm consistent with possible seroma -On Zosyn and azithromycin. Monitor for signs of infections (Fever and WBC). Cultures: NGTD, Strep pneumonia, legionella urinary antigen negative CXR 01/09 improving lung aeration with decrease airspace disease Hypertension -Continue Lopressor, EF is preserved on echocardiogram, stress test is neg for acute reversible ischemia GI prophylaxis with Pepcid and DVT prophylaxis with SCDs for now. Marcos Vázquez MD Jan 12, 2018 10:20
[2018-01-13] VITALS (22 sets, daily range): BP systolic 153–182; BP diastolic 70–85; PULSE 48–97; RESP 15–23; TEMP 97.9–98.3; O2SAT 94–100
[2018-01-13] MEDS: CHLORHEXIDINE GLUCONATE 2 % 1 PACK (2 CLOTHS) TOP SCH (04:00)
[2018-01-13] MEDS: INSULIN NovoLIN REGULAR SUPPLEMENTAL SCALE SQ SCH ×4 (04:00→20:40)
[2018-01-13] MEDS: PIPERACIL-TAZO 3.375 GM PREMIX 50 ML IV SCH ×4 (04:26→20:41)
[2018-01-13] MEDS: DOCUSATE SODIUM 50 MG/SENNA 8.6 MG TAB PO SCH ×2 (10:57→20:40)
[2018-01-13] MEDS: methylPREDNISolone SOD SUCC 40 MG/1 ML VIAL IV PUSH SCH (10:57)
[2018-01-13] MEDS: FAMOTIDINE 20 MG TAB PO SCH ×2 (10:57→20:40)
[2018-01-13] MEDS: AZITHROMYCIN INJ 500 MG in SODIUM CHLOR 0.9% 250 ML INJ 250 ML IV SCH (10:58)
--- NOTE | 2018-01-13 10:59 | HHI.PR ---
Subjective Remarks Nursing denies any deterioration apart from some intermittent disorientation. Patient himself has no new complaints. Denies any shortness of breath. Is asking when he can go home. Objective Vital Signs Date Time Temp Pulse Resp B/P (MAP) Pulse Ox O2 Delivery O2 Flow Rate FiO2 01/13/18 06:00 49 01/13/18 04:00 97.9 50 17 153/72 (99) 97 01/13/18 04:00 50 01/13/18 02:00 48 01/13/18 00:00 98.1 50 15 178/85 (116) 94 01/13/18 00:00 50 01/12/18 22:00 67 01/12/18 20:00 98.3 54 18 148/68 (94) 93 01/12/18 20:00 54 01/12/18 18:00 59 01/12/18 17:00 62 01/12/18 17:00 62 20 182/77 (112) 99 01/12/18 16:00 98.8 60 18 159/72 (101) 100 01/12/18 16:00 60 01/12/18 15:00 62 24 152/70 (97) 100 01/12/18 15:00 62 01/12/18 14:00 53 17 141/66 (91) 100 01/12/18 14:00 53 01/12/18 13:00 65 01/12/18 13:00 66 22 159/70 (99) 01/12/18 12:00 97.5 62 24 140/72 (94) 96 01/12/18 12:00 63 01/12/18 11:00 59 17 146/63 (90) 01/12/18 11:00 59 I/O 01/12/18 01/12/18 01/12/18 01/13/18 01/13/18 01/13/18 07:00 15:00 23:00 07:00 15:00 23:00 Intake Total 270 ml 300 ml 710 ml 580 ml Output Total 650 ml 2 ml 600 ml Balance -380 ml 300 ml 708 ml -20 ml Intake Oral 120 ml 660 ml 480 ml IV Total 150 ml 300 ml 50 ml 100 ml Output Urine Total 650 ml 600 ml Stool Total 0 ml 2 ml # Bowel Movements 0 1 0 Result Diagram: 01/11/18 0330 01/12/18 0730 Objective Remarks Coarse breath sounds bilaterally, unlabored breathing, on nasal cannula, no cyanosis Abdomen soft, nontender nondistended A/P Assessment and Plan 77-year-old male admitted with acute hypoxic respiratory failure. Underwent intubated course, eventually extubated. Acute hypoxic respiratory failure likely 2/2 PNA -On 2 L, instructed nursing to wean aggressively, wean as tolerated, continue DuoNeb Symbicort and Solu-Medrol - CT chest: Small right pleural effusion with adjacent compressive atelectasis. 7 mm noncalcified nodule within the left lower lobe laterally which is indeterminate. . Right axillary fluid collection measuring 6.0 x 3.1 x 4.3 cm consistent with possible seroma -On Zosyn and azithromycin. Pro calcitonin ordered, if negative antibiotics can be discontinued- Hypertension -Continue Lopressor, EF is preserved on echocardiogram, stress test is neg for acute reversible ischemia GI prophylaxis with Pepcid and DVT prophylaxis with SCDs for now. Transfer order was placed to regular floor yesterday pending availability. Marcos Vázquez MD Jan 13, 2018 10:59
[2018-01-13] MEDS: METOPROLOL TARTRATE 50 MG TAB PO SCH ×2 (11:01→20:40)
[2018-01-13] MEDS: BUDESONIDE-FORMOTEROL 160/4.5 MCG INHALER INH SCH ×2 (11:01→20:40)
[2018-01-14] VITALS (7 sets, daily range): BP systolic 138–172; BP diastolic 62–80; PULSE 59–77; RESP 16–21; TEMP 97.5–98.6; O2SAT 90–98
[2018-01-14] MEDS: hydrALAZINE HCL 20 MG/ML VIAL IV PUSH PRN (00:33)
[2018-01-14] MEDS: CHLORHEXIDINE GLUCONATE 2 % 1 PACK (2 CLOTHS) TOP SCH (03:36)
[2018-01-14] MEDS: INSULIN NovoLIN REGULAR SUPPLEMENTAL SCALE SQ SCH ×5 (03:36→22:00)
[2018-01-14] MEDS: PIPERACIL-TAZO 3.375 GM PREMIX 50 ML IV SCH ×4 (05:14→23:46)
[2018-01-14] MEDS: BUDESONIDE-FORMOTEROL 160/4.5 MCG INHALER INH SCH ×2 (08:31→23:49)
[2018-01-14] MEDS: AZITHROMYCIN INJ 500 MG in SODIUM CHLOR 0.9% 250 ML INJ 250 ML IV SCH (08:32)
[2018-01-14] MEDS: methylPREDNISolone SOD SUCC 40 MG/1 ML VIAL IV PUSH SCH (08:33)
[2018-01-14] MEDS: METOPROLOL TARTRATE 50 MG TAB PO SCH ×2 (08:33→23:41)
[2018-01-14] MEDS: FAMOTIDINE 20 MG TAB PO SCH ×2 (08:33→23:41)
[2018-01-14] MEDS: DOCUSATE SODIUM 50 MG/SENNA 8.6 MG TAB PO SCH ×2 (08:33→21:00)
[2018-01-14] MEDS: guaiFENesin E.R. 600 MG TAB PO SCH ×2 (11:18→23:41)
--- NOTE | 2018-01-14 12:31 | HHI.PR ---
Subjective Remarks Patient is a 77-year-old male with a past medical history of coronary artery disease, hypertension, hyperlipidemia, BPH and lymphoma, on radiation treatment and chemotherapy. He presented to [facility] ED from a rehab facility for lethargy, hypoxemia, and low saturation. Initially, he was placed on a BiPAP and ABG was performed, which showed acute hypercapnic respiratory failure with a pH of 7.14, CO2 of 103, PaO2 of 89, bicarbonate 34, and saturation 92%. He was subsequently intubated with etomidate, succinylcholine, and placed on full mechanical ventilation. A chest x-ray in the ER showed bibasilar patchiness and small right pleural effusion. According to the patient's family, he underwent a blood transfusion on 01/12/2018 after he received his first cycle of chemotherapy and then shortly after he was readmitted in [place] for fever, pneumonia and sepsis. The patient was eventually discharged to a rehab facility. There is no history of home oxygen or use of bronchodilators. The patient quit smoking in October and used to smoke a pack and half a day for about 60 years. His laboratory data is significant for leukocytosis with a WBC of 17.7, acute kidney injury with a creatinine of 1.82. His lactic acid level measured at 0.8. Chest x-ray post- intubation showed ET tube above the nelson, left subclavian Infusaport in place , bibasilar atelectasis and/or infiltrate and small right pleural effusion. When seen, the patient is sedated with Diprivan and on full mechanical ventilation. His blood pressure 175/94 with a pulse of 100. The patient is afebrile. 01/08 No events overnight. Remains intubated on CPAP awake, alert.Afebrile. 01/09 Patient s/p extubation yesterday. Awake somewhat confused. Afebrile. 01/10 No events overnight. Awake and alert, for stress test this morning. Afebrile. 01/11: Resting comfortably in bed. Confusion since extubation persists. 01/12 Nursing denies any deterioration since last night. Patient himself denies any shortness of breath. Denies wearing home oxygen. 01-13 Nursing denies any deterioration apart from some intermittent disorientation. Patient himself has no new complaints. Denies any shortness of breath. Is asking when he can go home. 01-14 patient has been taken off oxygen today Intermittent confusion Continue physical therapy and Occupational Therapy Hopefully home in the next 24-48 hours Remains on azithromycin and Zosyn Physical therapy thinks the patient needs to go to rehab Objective Vitals Vital Signs Date Time Temp Pulse Resp B/P (MAP) Pulse Ox O2 Delivery O2 Flow Rate FiO2 01/14/18 12:00 97.5 59 18 162/73 (102) 92 01/14/18 08:00 98.0 69 18 168/74 (105) 93 01/14/18 06:26 98.1 74 16 158/68 (98) 98 01/14/18 01:00 59 21 155/71 (99) 90 01/14/18 00:00 98.6 63 19 172/80 (110) 97 01/14/18 00:00 63 01/13/18 23:00 51 15 97 01/13/18 22:00 50 15 98 01/13/18 21:08 99 Nasal Cannula 2.00 01/13/18 21:00 59 18 99 01/13/18 20:50 59 20 162/73 (102) 100 01/13/18 20:00 61 01/13/18 20:00 98.2 61 19 100 01/13/18 18:00 63 01/13/18 17:00 65 01/13/18 16:00 98.0 52 15 157/70 (99) 98 01/13/18 16:00 52 01/13/18 15:00 59 01/13/18 14:00 59 01/13/18 13:00 79 I/O 01/13/18 01/13/18 01/13/18 01/14/18 01/14/18 01/14/18 07:00 15:00 23:00 07:00 15:00 23:00 Intake Total 580 ml 300 ml 950 ml Output Total 600 ml Balance -20 ml 300 ml 950 ml Intake Oral 480 ml 900 ml IV Total 100 ml 300 ml 50 ml Output Urine Total 600 ml # Voids 3 # Bowel Movements 0 1 Result Diagram: 01/11/18 0330 01/12/18 0730 Other Results Laboratory Tests Test 01/12/18 07:30 01/13/18 17:31 Potassium Level 4.0 MEQ/L Phosphorus Level 2.9 MG/DL Procalcitonin 0.08 ng/mL Imaging Last Impressions Myocardial Perfusion Scan Nuc Med 01/10/18 0000 Signed Impressions: Service Date/Time: Wednesday, January 10, 2018 10:38 - CONCLUSION: 1. No evidence of stress-induced reversible perfusion abnormality. 2. Fixed hypoperfusion in the anterior inferior callaway 3. Well-maintained lung motion and ejection fraction. RISK CATEGORY: Low (<1%% Annual Mortality Rate) Marc Navarro MD Chest X-Ray 01/09/18 0000 Signed Impressions: Service Date/Time: Tuesday, January 09, 2018 10:43 - CONCLUSION: 1. Status post extubation. 2. Improving lung aeration with decreasing air space disease. 3. Otherwise stable chest Marc Navarro MD Chest CT 01/07/1843 Signed Impressions: Service Date/Time: Sunday, January 07, 2018 10:59 - CONCLUSION: 1. Small right pleural effusion with adjacent compressive atelectasis. 2. Tiny left pleural effusion. 3. 7 mm noncalcified nodule within the left lower lobe laterally which is indeterminate. Followup CT the chest in 6 months would be helpful to confirm stability of this finding. 4. Scattered discoid atelectasis bilaterally. 5. Right axillary fluid collection measuring 6.0 x 3.1 x 4.3 cm consistent with possible seroma if the patient has had surgery in this location. 6. Right axillary lymphadenopathy with the largest lymph node measuring 16 mm. 7. Coronary artery calcifications. Fabian Villegas MD Head CT 01/07/18 0802 Signed Impressions: Service Date/Time: Sunday, January 07, 2018 10:53 - CONCLUSION: 1. No acute intracranial abnormality. 2. Moderate mucosal thickening involving the maxillary and ethmoid sinuses bilaterally. Fabian Villegas MD Abdomen/Pelvis CT 01/07/18 0000 Signed Impressions: Service Date/Time: Sunday, January 07, 2018 10:59 - CONCLUSION: 1. Small right pleural effusion with adjacent compressive atelectasis. 2. 7 mm noncalcified nodule within the left lower lobe which is indeterminate. 3. 4.1 x 2.6 cm lobulated low density lesion within the right lobe of liver which is indeterminate on this unenhanced examination. Outpatient MRI of the abdomen with contrast may be helpful for further characterization of this finding. 4. 4 cm lower pole right renal cyst. 5. Degenerative changes and scoliosis of the thoracolumbar spine. 6. Enlarged prostate. 7. Uncomplicated colonic diverticulosis. 8. Gallbladder sludge. Fabian Villegas MD Objective Remarks GENERAL: Awake and alert oriented 1-2 talkative and cooperative in no acute distress SKIN: Warm and dry. HEAD: Atraumatic. Normocephalic. EYES: Pupils equal and round. No scleral icterus. No injection or drainage. Extraocular muscles intact ENT: No nasal bleeding or discharge. Mucous membranes pink and moist. Tongue is midline NECK: Trachea midline. No JVD. Supple CARDIOVASCULAR: Regular rate and rhythm. S1-S2 no S3 or S4 RESPIRATORY: No accessory muscle use few scattered rhonchi's bilaterally breath sounds equal bilaterally. GASTROINTESTINAL: Abdomen soft, non-tender, nondistended. Hepatic and splenic margins not palpable. MUSCULOSKELETAL: Extremities without clubbing, cyanosis, or edema. No obvious deformities. NEUROLOGICAL: Awake and alert. No obvious cranial nerve deficits. Motor grossly within normal limits. Five out of 5 muscle strength in the arms and legs. Normal speech. PSYCHIATRIC: INAppropriate mood and affect; insight and judgment ABnormal. Procedures Respiratory failure with mechanical ventilation and intubation Medications and IVs Current Medications Etomidate (Amidate Inj) 20 mg ONCE ONCE IVP Last administered on 01/07/18 09: 03; Start 01/07/18 at 08:45; Stop 01/07/18 at 08:46; Status DC Succinylcholine Chloride (Quelicin Inj) 100 mg ONCE ONCE IV PUSH Last administered on 01/07/18at 09:04; Start 01/07/18 at 08:45; Stop 01/07/18 at 08:46 ; Status DC Sodium Chloride (NS Flush) 2 ml UNSCH PRN IVF FLUSH AFTER USING IV ACCESS Last administered on 01/11/18at 08:41; Start 01/07/18 at 08:45 Piperacillin Sod/ Tazobactam Sod 100 ml @ 200 mls/hr ONCE STAT IV Last administered on 01/07/18at 09:43; Start 01/07/18 at 09:13; Stop 01/07/18 at 09:42 ; Status DC Azithromycin 500 mg/Sodium Chloride 250 ml @ 250 mls/hr ONCE STAT IV Last administered on 01/07/18at 10:38; Start 01/07/18 at 09:13; Stop 01/07/18 at 10:12 ; Status DC Sodium Chloride 1,000 ml @ 999 mls/hr BOLUS ONCE IV Last administered on 01/07at 09:44; Start 01/07/18 at 09:45; Stop 01/07/18 at 10:45; Status DC Propofol (Diprivan 200 Mg/20 ml Inj) 50 mg ONCE ONCE IV Last administered on 01/07/18at 10:38; Start 01/07/18 at 09:45; Stop 01/07/18 at 09:50; Status DC Propofol 100 ml @ 4.8 mls/hr TITRATE PRN IV SEDATION Last administered on 01/08at 03:12; Start 01/07/18 at 09:45; Stop 01/08/18 at 12:49; Status DC Famotidine (Pepcid Inj) 10 mg Q12HR IV PUSH Last administered on 01/09/18at 09: 43; Start 01/07/18 at 09:45; Stop 01/09/18 at 16:18; Status DC Albuterol/ Ipratropium (Duoneb Neb) 1 ampule Q6HR NEB INH Last administered on 01/11/18at 03:50; Start 01/07/18 at 10:00; Stop 01/11/18 at 09:59; Status DC Miscellaneous Information 1 [id number] XX ; Start 01/07/18 at 09:45 Chlorhexidine Gluconate (Chlorhexidine 2% Cloth) Taper DAILY@04 TOP Last administered on 01/12/18at 04:00; Start 01/08/18 at 04:00; Stop 01/04/19 at 03:59 Chlorhexidine Gluconate (Chlorhexidine 2% Cloth) 3 pack UNSCH PRN TOP HYGIENIC CARE; Start 01/07/18 at 09:45 Senna/Docusate Sodium (Claire-Colace) 1 tab BID PO Last administered on at 20:40; Start 01/07/18 at 21:00 Magnesium Hydroxide (Milk Of Magnesia Liq) 30 ml Q12H PRN PO Mild constipation ; Start 01/07/18 at 09:45 Sennosides (Senokot) 17.2 mg Q12H PRN PO Moderate constipation; Start 01/07/18 at 09:45 Bisacodyl (Dulcolax Supp) 10 mg DAILY PRN RECTAL SEVERE CONSITIPATION; Start at 09:45 Lactulose (Lactulose Liq) 30 ml DAILY PRN PO SEVERE CONSITIPATION; Start at 09:45 Vancomycin HCl 1000 mg/Sodium Chloride 250 ml @ 250 mls/hr Q12H IV ; Start at 09:45; Stop 01/07/18 at 10:28; Status DC Piperacillin Sod/ Tazobactam Sod 100 ml @ 200 mls/hr Q6H IV Last administered on 01/08/18at 04:43; Start 01/07/18 at 16:00; Stop 01/08/18 at 08:57; Status DC Azithromycin 500 mg/Sodium Chloride 250 ml @ 250 mls/hr Q24H IV Last administered on 01/14/18at 08:32; Start 01/08/18 at 09:00 Sodium Chloride 1,000 ml @ 84 mls/hr [id number] IV ; Start 01/07/18 at 10:00; Stop 01/07/18 at 10:20; Status DC Sodium Chloride 1,000 ml @ 999 mls/hr BOLUS ONCE IV ; Start 01/07/18 at 10:15 ; Stop 01/07/18 at 11:15; Status DC Dextrose (D50w (Vial) Inj) 50 ml UNSCH PRN IV PUSH HYPOGLYCEMIA-SEE COMMENTS; Start 01/07/18 at 09:45 Glucagon (Glucagon Inj) 1 mg UNSCH PRN OTHER HYPOGLYCEMIA-SEE COMMENTS; Start 01/07/18 at 09:45 Insulin Human Regular (NovoLIN R SUPPLEMENTAL SCALE) 1 Q6H SQ Last administered on 01/12/18at 20:46; Start 01/07/18 at 10:00 Aspirin (Aspirin) 325 mg ONCE ONCE PO Last administered on 01/07/18at 18:33; Start 01/07/18 at 11:00; Stop 01/07/18 at 11:01; Status DC Dextrose/Sodium Chloride 1,000 ml @ 100 mls/hr Q10H IV Last administered on at 04:45; Start 01/07/18 at 11:00; Stop 01/08/18 at 11:07; Status DC Pharmacy Profile Note ml @ 0 mls/hr UNSCH OTHER ; Start 01/07/18 at 10:30; Stop 01/09/18 at 10:33; Status DC Vancomycin HCl 1500 mg/Sodium Chloride 515 ml @ 257.5 mls/ hr ONCE ONCE IV Last administered on 01/07/18at 16:46; Start 01/07/18 at 10:30; Stop 01/07/18 at 12:29; Status DC Methylprednisolone Sodium Succinate (SoluMEDROL INJ) 40 mg Q12HR IV PUSH Last administered on 01/09/18at 22:52; Start 01/07/18 at 11:00; Stop 01/10/18 at 09:15 ; Status DC Diatrizoate Meglum/ Diatrizoate Sod ( Gastroview Liq) 18 ml ONCE ONCE PO ; Start 01/07/18 at 12:00; Stop 01/07/18 at 12:01; Status DC Metoprolol Tartrate (Lopressor) 25 mg Q12HR PO Last administered on 01/09/18at 09:44; Start 01/07/18 at 17:00; Stop 01/09/18 at 10:33; Status DC Vancomycin HCl 1200 mg/Sodium Chloride 262 ml @ 250 mls/hr Q24H IV Last administered on 01/08/18at 15:42; Start 01/08/18 at 17:00; Stop 01/09/18 at 10:33 ; Status DC Miscellaneous Information SPECIFIC LAB TO BE DRAWN: VANCO TROUGH DATE TO BE DR... ONCE ONCE .XX ; Start 01/10/18 at 16:45; Stop 01/10/18 at 16:45; Status DC Piperacillin Sod/ Tazobactam Sod 50 ml @ 200 mls/hr Q6H IV Last administered on 01/14/18at 11:02; Start 01/08/18 at 11:00 Sodium Chloride 1,000 ml @ 75 mls/hr [id number] IV Last administered on at 00:35; Start 01/08/18 at 11:15; Stop 01/09/18 at 10:33; Status DC Budesonide/ Formoterol Fumarate (Symbicort 160-4.5 Mcg Inh) 2 puff Q12HR INH Last administered on 01/14/18at 08:31; Start 01/08/18 at 13:00 Albuterol/ Ipratropium (Duoneb Neb) 1 ampule Q2HR NEB PRN NEB SHORTNESS OF BREATH; Start 01/08/18 at 12:45 Metoprolol Tartrate (Lopressor) 50 mg Q12HR PO Last administered on 01/14/18at 08:33; Start 01/08/18 at 21:00 Hydralazine HCl (Apresoline Inj) 10 mg Q4H PRN IV PUSH SYS BP GREATER THAN 160 MMHG Last administered on 01/14/18at 00:33; Start 01/08/18 at 16:45 Potassium Chloride 100 ml @ 50 mls/hr Q2H PRN IV For Potassium 2.8 - 3.2 mEq/ L Last administered on 01/09/18at 15:22; Start 01/09/18 at 10:30; Stop 01/14/18 at 10:12; Status DC Potassium Chloride 100 ml @ 50 mls/hr Q2H PRN IV For Potassium 2.8 - 3.2 mEq/L ; Start 01/09/18 at 10:30; Stop 01/14/18 at 10:12; Status DC Potassium Bicarb/ Potassium Chloride (K-Lyte Cl Eff) 50 meq UNSCH PRN PO For Potassium 3.3 - 3.5 mEq/L; Start 01/09/18 at 10:30; Stop 01/14/18 at 10:12; Status DC Potassium Chloride 100 ml @ 25 mls/hr UNSCH PRN IV For Potassium 3.3 - 3.5 mEq /L; Start 01/09/18 at 10:30; Stop 01/14/18 at 10:12; Status DC Potassium Chloride 100 ml @ 50 mls/hr Q2H PRN IV For Potassium 3.3 - 3.5 mEq/L ; Start 01/09/18 at 10:30; Stop 01/14/18 at 10:12; Status DC Magnesium Sulfate 4 gm/Sodium Chloride 100 ml @ 50 mls/hr UNSCH PRN IV For Magnesium 0.9 - 1.1 mg/dL; Start 01/09/18 at 10:30; Stop 01/14/18 at 10:12; Status DC Magnesium Oxide (Mag-Ox) 800 mg UNSCH PRN PO For Magnesium 1.2 - 1.6 mg/dL; Start 01/09/18 at 10:30; Stop 01/14/18 at 10:12; Status DC Magnesium Sulfate 2 gm/Sodium Chloride 100 ml @ 50 mls/hr UNSCH PRN IV For Magnesium 1.2 - 1.6 mg/dL; Start 01/09/18 at 10:30; Stop 01/14/18 at 10:12; Status DC Potassium Phosphate (K-Phos) 2,000 mg Q4H PRN PO For Phosphorus < 2.5 mg/dL; Start 01/09/18 at 10:30; Stop 01/14/18 at 10:12; Status DC Sodium Phosphate 30 mmol/Sodium Chloride 250 ml @ 42 mls/hr UNSCH PRN IV For Phosphorus < 2.5 mg/dL; Start 01/09/18 at 10:30; Stop 01/14/18 at 10:12; Status DC Potassium Phosphate (K-Phos) 2,000 mg UNSCH PRN PO/TUBE SEE LABEL COMMENTS; Start 01/09/18 at 10:30; Stop 01/14/18 at 10:12; Status DC Potassium Phosphate 30 mmol/ Sodium Chloride 260 ml @ 42 mls/hr UNSCH PRN IV SEE LABEL COMMENTS; Start 01/09/18 at 10:30; Stop 01/14/18 at 10:12; Status DC Dextrose 1,000 ml @ 42 mls/hr [id number] IV Last administered on 01/09/18at 11:12 ; Start 01/09/18 at 11:00; Stop 01/10/18 at 09:15; Status DC Famotidine (Pepcid) 10 mg BID PO Last administered on 01/14/18at 08:33; Start at 21:00 Methylprednisolone Sodium Succinate (SoluMEDROL INJ) 40 mg DAILY IV PUSH Last administered on 01/14/18at 08:33; Start 01/11/18 at 09:00 Regadenoson (Lexiscan Inj) 0.4 mg STK-MED ONCE .ROUTE Last administered on 01/10at 10:53; Start 01/10/18 at 10:53; Stop 01/10/18 at 10:54; Status DC Potassium Phosphate 30 mmol/ Sodium Chloride 260 ml @ 42 mls/hr ONCE ONCE IV Last administered on 01/11/18at 12:47; Start 01/11/18 at 10:00; Stop 01/11/18 at 16:11; Status DC Potassium Chloride 100 ml @ 25 mls/hr ONCE ONCE IV Last administered on at 12:47; Start 01/11/18 at 08:45; Stop 01/11/18 at 12:44; Status DC Heparin Sodium (Porcine) (Heparin Central Flush) 300 units DAILY IV FLUSH Last administered on 01/14/18at 09:51; Start 01/12/18 at 09:00 Heparin Sodium (Porcine) (Heparin Central Flush) 300 units UNSCH PRN IV FLUSH FLUSH AFTER USING IV ACCESS; Start 01/11/18 at 20:00 Guaifenesin (Mucinex Er) 600 mg BID PO Last administered on 01/14/18at 11:18; Start 01/14/18 at 10:45 A/P Assessment and Plan 1. resp Insuff- extubated 01/08 2. Pneumonia. -- Improved 3. Acute kidney injury..Resolved 4. Lymphoma. 5. Elevated troponin. 6. Leukocytosis. 7. Anemia. 8. History of hypertension. 9. History of coronary artery disease. 10. Hyperlipidemia. 11. History of benign prostatic hyperplasia. Plan Neuro: Awake, monitor neuro status, avoid sedatives CT jd: No acute intracranial abnormalities Pulm: Continue with oxygen and maintain sats > 92%. Bronchodilators(DuoNeb, Symbicort), decrease Solu-Medrol 40 mg IV daily NIPPV PRN for resp distress CT chest: Small right pleural effusion with adjacent compressive atelectasis. 7 mm noncalcified nodule within the left lower lobe laterally which is indeterminate. . Right axillary fluid collection measuring 6.0 x 3.1 x 4.3 cm consistent with possible seroma CV on Lopressor 50mg Q12: Monitor HR and BP keep MAP>65mmHG Cards is following- Dr. Gillespie For nuc. stress test today was stable Echo showed EF 55-60%, no RWMA Was stable : Monitor renal function, I's and O's and avoid nephrotoxins. Electrolytes replacement as needed CT abd/pelvis: No hydronephrosis, stones or masses. Right renal cyst GI: Pepcid 10 mg PO q.12 hours. On PO diet Heme: Monitor CBC , coags, Onc is following ID: On Zosyn and azithromycin. Monitor for signs of infections(Fever and WBC). Cultures: NGTD, Strep pneumonia, legionella urinary antigen negative CXR 01/09 improving lung aeration with decrease airspace disease Endo: SSI with Accu-Cheks for glycemic control GI prophylaxis with Pepcid and DVT prophylaxis with SCDs for now. Lines: left subclavian Infusaport and peripheral IVs.77-year-old male admitted with acute hypoxic respiratory failure. Underwent intubated course, eventually extubated. Acute hypoxic respiratory failure likely 2/2 PNA -On 2 L, instructed nursing to wean aggressively, wean as tolerated, continue DuoNeb Symbicort and Solu-Medrol - CT chest: Small right pleural effusion with adjacent compressive atelectasis. 7 mm noncalcified nodule within the left lower lobe laterally which is indeterminate. . Right axillary fluid collection measuring 6.0 x 3.1 x 4.3 cm consistent with possible seroma -On Zosyn and azithromycin. Hypertension -Continue Lopressor, EF is preserved on echocardiogram, stress test is neg for acute reversible ischemia GI prophylaxis with Pepcid and DVT prophylaxis with SCDs for now. Hopefully discharge in the next 24-48 hours Physical therapy thinks the patient needs to go to rehab Discharge Planning Patient states lives with his hopefully home in the next 24-48 hours Tony Ryan DO Jan 14, 2018 12:31
[2018-01-15] VITALS (8 sets, daily range): BP systolic 143–186; BP diastolic 65–82; PULSE 57–74; RESP 18–19; TEMP 97.5–98.1; O2SAT 97–100
[2018-01-15] MEDS: INSULIN NovoLIN REGULAR SUPPLEMENTAL SCALE SQ SCH ×4 (04:00→22:00)
[2018-01-15] MEDS: CHLORHEXIDINE GLUCONATE 2 % 1 PACK (2 CLOTHS) TOP SCH (04:00)
[2018-01-15] MEDS: PIPERACIL-TAZO 3.375 GM PREMIX 50 ML IV SCH ×3 (05:24→15:59)
[2018-01-15] MEDS: AZITHROMYCIN INJ 500 MG in SODIUM CHLOR 0.9% 250 ML INJ 250 ML IV SCH (08:23)
[2018-01-15] MEDS: methylPREDNISolone SOD SUCC 40 MG/1 ML VIAL IV PUSH SCH (08:23)
[2018-01-15] MEDS: METOPROLOL TARTRATE 50 MG TAB PO SCH ×2 (08:23→23:03)
[2018-01-15] MEDS: DOCUSATE SODIUM 50 MG/SENNA 8.6 MG TAB PO SCH ×2 (08:24→23:03)
[2018-01-15] MEDS: BUDESONIDE-FORMOTEROL 160/4.5 MCG INHALER INH SCH ×2 (08:24→23:04)
[2018-01-15] MEDS: guaiFENesin E.R. 600 MG TAB PO SCH ×2 (08:24→23:03)
[2018-01-15] MEDS: FAMOTIDINE 20 MG TAB PO SCH ×2 (08:24→23:03)
[2018-01-15 12:07] LABS: AUTOMATED NEUTROPHIL # 14.2 TH/MM3 (1.8-7.7); BASOPHIL # 0.2 TH/MM3 (0-0.2); EOSINOPHIL # 0.1 TH/MM3 (0-0.4); EOSINOPHIL % 0.4 % (0.0-4.0); HEMATOCRIT 30.3 % (39.0-51.0); HEMOGLOBIN 9.6 GM/DL (13.0-17.0); LYMPH % 0.8 % (9.0-44.0); LYMPHOCYTE # 0.1 TH/MM3 (1.0-4.8); MEAN CELL VOLUME 95.1 FL (80.0-100.0); MEAN CORPUSCULAR HEMOGLOBIN 30.2 PG (27.0-34.0); MEAN CORPUSCULAR HGB CONC 31.7 % (32.0-36.0); MEAN PLATELET VOLUME 10.2 FL (7.0-11.0); MONO % 4.9 % (0.0-8.0); MONOCYTE # 0.7 TH/MM3 (0-0.9); NEUT % 92.9 % (16.0-70.0); PLATELET COUNT 252 TH/MM3 (150-450); RED BLOOD COUNT 3.19 MIL/MM3 (4.50-5.90); WHITE BLOOD COUNT 15.3 TH/MM3 (4.0-11.0)
--- NOTE | 2018-01-15 12:19 | HHI.PR ---
Subjective Remarks Patient is a 77-year-old male with a past medical history of coronary artery disease, hypertension, hyperlipidemia, BPH and lymphoma, on radiation treatment and chemotherapy. He presented to [facility] ED from a rehab facility for lethargy, hypoxemia, and low saturation. Initially, he was placed on a BiPAP and ABG was performed, which showed acute hypercapnic respiratory failure with a pH of 7.14, CO2 of 103, PaO2 of 89, bicarbonate 34, and saturation 92%. He was subsequently intubated with etomidate, succinylcholine, and placed on full mechanical ventilation. A chest x-ray in the ER showed bibasilar patchiness and small right pleural effusion. According to the patient's family, he underwent a blood transfusion on 01/12/2018 after he received his first cycle of chemotherapy and then shortly after he was readmitted in [place] for fever, pneumonia and sepsis. The patient was eventually discharged to a rehab facility. There is no history of home oxygen or use of bronchodilators. The patient quit smoking in October and used to smoke a pack and half a day for about 60 years. His laboratory data is significant for leukocytosis with a WBC of 17.7, acute kidney injury with a creatinine of 1.82. His lactic acid level measured at 0.8. Chest x-ray post- intubation showed ET tube above the nelson, left subclavian Infusaport in place , bibasilar atelectasis and/or infiltrate and small right pleural effusion. When seen, the patient is sedated with Diprivan and on full mechanical ventilation. His blood pressure 175/94 with a pulse of 100. The patient is afebrile. 01/08 No events overnight. Remains intubated on CPAP awake, alert.Afebrile. 01/09 Patient s/p extubation yesterday. Awake somewhat confused. Afebrile. 01/10 No events overnight. Awake and alert, for stress test this morning. Afebrile. 01/11: Resting comfortably in bed. Confusion since extubation persists. 01/12 Nursing denies any deterioration since last night. Patient himself denies any shortness of breath. Denies wearing home oxygen. 01-13 Nursing denies any deterioration apart from some intermittent disorientation. Patient himself has no new complaints. Denies any shortness of breath. Is asking when he can go home. 01-14 patient has been taken off oxygen today Intermittent confusion Continue physical therapy and Occupational Therapy Hopefully home in the next 24-48 hours Remains on azithromycin and Zosyn Physical therapy thinks the patient needs to go to rehab 4- NEEDS SNF? FAMILY INTERESTED IN [place] SUSPECT NEEDS SNF THEY DON'T WANT HIM TO COME HOME AT DC CONTINUE PT AND OT SOME CONFUSION STILL Objective Vitals Vital Signs Date Time Temp Pulse Resp B/P (MAP) Pulse Ox O2 Delivery O2 Flow Rate FiO2 01/15/18 10:29 97 Nasal Cannula 2.00 01/15/18 08:00 97.9 71 18 143/73 (96) 97 01/15/18 04:48 97.5 74 18 144/69 (94) 97 01/15/18 00:15 98.0 67 18 160/70 (100) 100 01/14/18 20:00 97.8 64 18 152/66 (94) 96 01/14/18 19:25 Nasal Cannula 2.00 01/14/18 16:00 97.9 77 18 138/62 (87) 93 01/14/18 15:35 92 Nasal Cannula 2.00 I/O 01/14/18 01/14/18 01/14/18 01/15/18 01/15/18 01/15/18 07:00 15:00 23:00 07:00 15:00 23:00 Intake Total 120 ml Output Total 300 ml 700 ml Balance -300 ml -580 ml Intake Oral 120 ml Output Urine Total 300 ml 700 ml # Voids 1 # Bowel Movements 1 Result Diagram: 01/15/18 1130 01/12/18 0730 Other Results Laboratory Tests Test 01/13/18 17:31 01/15/18 11:30 Procalcitonin 0.08 ng/mL White Blood Count 15.3 TH/MM3 Red Blood Count 3.19 MIL/MM3 Hemoglobin 9.6 GM/DL Hematocrit 30.3 % Mean Corpuscular Volume 95.1 FL Mean Corpuscular Hemoglobin 30.2 PG Mean Corpuscular Hemoglobin Concent 31.7 % Red Cell Distribution Width 21.0 % Platelet Count 252 TH/MM3 Mean Platelet Volume 10.2 FL Neutrophils (%) (Auto) 92.9 % Lymphocytes (%) (Auto) 0.8 % Monocytes (%) (Auto) 4.9 % Eosinophils (%) (Auto) 0.4 % Basophils (%) (Auto) 1.0 % Neutrophils # (Auto) 14.2 TH/MM3 Lymphocytes # (Auto) 0.1 TH/MM3 Monocytes # (Auto) 0.7 TH/MM3 Eosinophils # (Auto) 0.1 TH/MM3 Basophils # (Auto) 0.2 TH/MM3 CBC Comment AUTO DIFF Imaging Last Impressions Myocardial Perfusion Scan Nuc Med 01/10/18 0000 Signed Impressions: Service Date/Time: Wednesday, January 10, 2018 10:38 - CONCLUSION: 1. No evidence of stress-induced reversible perfusion abnormality. 2. Fixed hypoperfusion in the anterior inferior callaway 3. Well-maintained lung motion and ejection fraction. RISK CATEGORY: Low (<1%% Annual Mortality Rate) Marc Navarro MD Chest X-Ray 01/09/18 0000 Signed Impressions: Service Date/Time: Tuesday, January 09, 2018 10:43 - CONCLUSION: 1. Status post extubation. 2. Improving lung aeration with decreasing air space disease. 3. Otherwise stable chest Marc Navarro MD Chest CT 01/07/18 0943 Signed Impressions: Service Date/Time: Sunday, January 07, 2018 10:59 - CONCLUSION: 1. Small right pleural effusion with adjacent compressive atelectasis. 2. Tiny left pleural effusion. 3. 7 mm noncalcified nodule within the left lower lobe laterally which is indeterminate. Followup CT the chest in 6 months would be helpful to confirm stability of this finding. 4. Scattered discoid atelectasis bilaterally. 5. Right axillary fluid collection measuring 6.0 x 3.1 x 4.3 cm consistent with possible seroma if the patient has had surgery in this location. 6. Right axillary lymphadenopathy with the largest lymph node measuring 16 mm. 7. Coronary artery calcifications. Fabian Villegas MD Head CT 01/07/18 0802 Signed Impressions: Service Date/Time: Sunday, January 07, 2018 10:53 - CONCLUSION: 1. No acute intracranial abnormality. 2. Moderate mucosal thickening involving the maxillary and ethmoid sinuses bilaterally. Fabian Villegas MD Abdomen/Pelvis CT 01/07/18 0000 Signed Impressions: Service Date/Time: Sunday, January 07, 2018 10:59 - CONCLUSION: 1. Small right pleural effusion with adjacent compressive atelectasis. 2. 7 mm noncalcified nodule within the left lower lobe which is indeterminate. 3. 4.1 x 2.6 cm lobulated low density lesion within the right lobe of liver which is indeterminate on this unenhanced examination. Outpatient MRI of the abdomen with contrast may be helpful for further characterization of this finding. 4. 4 cm lower pole right renal cyst. 5. Degenerative changes and scoliosis of the thoracolumbar spine. 6. Enlarged prostate. 7. Uncomplicated colonic diverticulosis. 8. Gallbladder sludge. Fabian Villegas MD Objective Remarks GENERAL: Awake and alert oriented 1-2 talkative and cooperative in no acute distress SKIN: Warm and dry. HEAD: Atraumatic. Normocephalic. EYES: Pupils equal and round. No scleral icterus. No injection or drainage. Extraocular muscles intact ENT: No nasal bleeding or discharge. Mucous membranes pink and moist. Tongue is midline NECK: Trachea midline. No JVD. Supple CARDIOVASCULAR: Regular rate and rhythm. S1-S2 no S3 or S4 RESPIRATORY: No accessory muscle use few scattered rhonchi's bilaterally breath sounds equal bilaterally. GASTROINTESTINAL: Abdomen soft, non-tender, nondistended. Hepatic and splenic margins not palpable. MUSCULOSKELETAL: Extremities without clubbing, cyanosis, or edema. No obvious deformities. NEUROLOGICAL: Awake and alert. No obvious cranial nerve deficits. Motor grossly within normal limits. Five out of 5 muscle strength in the arms and legs. Normal speech. PSYCHIATRIC: INAppropriate mood and affect; insight and judgment ABnormal. Procedures Respiratory failure with mechanical ventilation and intubation Medications and IVs Current Medications Etomidate (Amidate Inj) 20 mg ONCE ONCE IVP Last administered on 01/07/18at 09: 03; Start 01/07/18 at 08:45; Stop 01/07/18 at 08:46; Status DC Succinylcholine Chloride (Quelicin Inj) 100 mg ONCE ONCE IV PUSH Last administered on 01/07/18at 09:04; Start 01/07/18 at 08:45; Stop 01/07/18 at 08:46 ; Status DC Sodium Chloride (NS Flush) 2 ml UNSCH PRN IVF FLUSH AFTER USING IV ACCESS Last administered on 01/11/18at 08:41; Start 01/07/18 at 08:45 Piperacillin Sod/ Tazobactam Sod 100 ml @ 200 mls/hr ONCE STAT IV Last administered on 01/07/18at 09:43; Start 01/07/18 at 09:13; Stop 01/07/18 at 09:42 ; Status DC Azithromycin 500 mg/Sodium Chloride 250 ml @ 250 mls/hr ONCE STAT IV Last administered on 01/07/18at 10:38; Start 01/07/18 at 09:13; Stop 01/07/18 at 10:12 ; Status DC Sodium Chloride 1,000 ml @ 999 mls/hr BOLUS ONCE IV Last administered on 01/07at 09:44; Start 01/07/18 at 09:45; Stop 01/07/18 at 10:45; Status DC Propofol (Diprivan 200 Mg/20 ml Inj) 50 mg ONCE ONCE IV Last administered on 01/07/18at 10:38; Start 01/07/18 at 09:45; Stop 01/07/18 at 09:50; Status DC Propofol 100 ml @ 4.8 mls/hr TITRATE PRN IV SEDATION Last administered on 01/08at 03:12; Start 01/07/18 at 09:45; Stop 01/08/18 at 12:49; Status DC Famotidine (Pepcid Inj) 10 mg Q12HR IV PUSH Last administered on 01/09/18at 09: 43; Start 01/07/18 at 09:45; Stop 01/09/18 at 16:18; Status DC Albuterol/ Ipratropium (Duoneb Neb) 1 ampule Q6HR NEB INH Last administered on 01/11/18at 03:50; Start 01/07/18 at 10:00; Stop 01/11/18 at 09:59; Status DC Miscellaneous Information 1 [id number] XX ; Start 01/07/18 at 09:45 Chlorhexidine Gluconate (Chlorhexidine 2% Cloth) Taper DAILY@04 TOP Last administered on 01/12/18at 04:00; Start 01/08/18 at 04:00; Stop 01/04/19 at 03:59 Chlorhexidine Gluconate (Chlorhexidine 2% Cloth) 3 pack UNSCH PRN TOP HYGIENIC CARE; Start 01/07/18 at 09:45 Senna/Docusate Sodium (Claire-Colace) 1 tab BID PO Last administered on at 20:40; Start 01/07/18 at 21:00 Magnesium Hydroxide (Milk Of Magnesia Liq) 30 ml Q12H PRN PO Mild constipation ; Start 01/07/18 at 09:45 Sennosides (Senokot) 17.2 mg Q12H PRN PO Moderate constipation; Start 01/07/18 at 09:45 Bisacodyl (Dulcolax Supp) 10 mg DAILY PRN RECTAL SEVERE CONSITIPATION; Start at 09:45 Lactulose (Lactulose Liq) 30 ml DAILY PRN PO SEVERE CONSITIPATION; Start at 09:45 Vancomycin HCl 1000 mg/Sodium Chloride 250 ml @ 250 mls/hr Q12H IV ; Start at 09:45; Stop 01/07/18 at 10:28; Status DC Piperacillin Sod/ Tazobactam Sod 100 ml @ 200 mls/hr Q6H IV Last administered on 01/08/18at 04:43; Start 01/07/18 at 16:00; Stop 01/08/18 at 08:57; Status DC Azithromycin 500 mg/Sodium Chloride 250 ml @ 250 mls/hr Q24H IV Last administered on 01/15/18at 08:23; Start 01/08/18 at 09:00 Sodium Chloride 1,000 ml @ 84 mls/hr [id number] IV ; Start 01/07/18 at 10:00; Stop 01/07/18 at 10:20; Status DC Sodium Chloride 1,000 ml @ 999 mls/hr BOLUS ONCE IV ; Start 01/07/18 at 10:15 ; Stop 01/07/18 at 11:15; Status DC Dextrose (D50w (Vial) Inj) 50 ml UNSCH PRN IV PUSH HYPOGLYCEMIA-SEE COMMENTS; Start 01/07/18 at 09:45 Glucagon (Glucagon Inj) 1 mg UNSCH PRN OTHER HYPOGLYCEMIA-SEE COMMENTS; Start 01/07/18 at 09:45 Insulin Human Regular (NovoLIN R SUPPLEMENTAL SCALE) 1 Q6H SQ Last administered on 01/12/18at 20:46; Start 01/07/18 at 10:00 Aspirin (Aspirin) 325 mg ONCE ONCE PO Last administered on 01/07/18at 18:33; Start 01/07/18 at 11:00; Stop 01/07/18 at 11:01; Status DC Dextrose/Sodium Chloride 1,000 ml @ 100 mls/hr Q10H IV Last administered on at 04:45; Start 01/07/18 at 11:00; Stop 01/08/18 at 11:07; Status DC Pharmacy Profile Note ml @ 0 mls/hr UNSCH OTHER ; Start 01/07/18 at 10:30; Stop 01/09/18 at 10:33; Status DC Vancomycin HCl 1500 mg/Sodium Chloride 515 ml @ 257.5 mls/ hr ONCE ONCE IV Last administered on 01/07/18at 16:46; Start 01/07/18 at 10:30; Stop 01/07/18 at 12:29; Status DC Methylprednisolone Sodium Succinate (SoluMEDROL INJ) 40 mg Q12HR IV PUSH Last administered on 01/09/18at 22:52; Start 01/07/18 at 11:00; Stop 01/10/18 at 09:15 ; Status DC Diatrizoate Meglum/ Diatrizoate Sod ( Gastroview Liq) 18 ml ONCE ONCE PO ; Start 01/07/18 at 12:00; Stop 01/07/18 at 12:01; Status DC Metoprolol Tartrate (Lopressor) 25 mg Q12HR PO Last administered on 01/09/18at 09:44; Start 01/07/18 at 17:00; Stop 01/09/18 at 10:33; Status DC Vancomycin HCl 1200 mg/Sodium Chloride 262 ml @ 250 mls/hr Q24H IV Last administered on 01/08/18at 15:42; Start 01/08/18 at 17:00; Stop 01/09/18 at 10:33 ; Status DC Miscellaneous Information SPECIFIC LAB TO BE DRAWN: VANCO TROUGH DATE TO BE DR... ONCE ONCE .XX ; Start 01/10/18 at 16:45; Stop 01/10/18 at 16:45; Status DC Piperacillin Sod/ Tazobactam Sod 50 ml @ 200 mls/hr Q6H IV Last administered on 01/15/18at 11:28; Start 01/08/18 at 11:00 Sodium Chloride 1,000 ml @ 75 mls/hr [id number] IV Last administered on at 00:35; Start 01/08/18 at 11:15; Stop 01/09/18 at 10:33; Status DC Budesonide/ Formoterol Fumarate (Symbicort 160-4.5 Mcg Inh) 2 puff Q12HR INH Last administered on 01/15/18at 08:24; Start 01/08/18 at 13:00 Albuterol/ Ipratropium (Duoneb Neb) 1 ampule Q2HR NEB PRN NEB SHORTNESS OF BREATH; Start 01/08/18 at 12:45 Metoprolol Tartrate (Lopressor) 50 mg Q12HR PO Last administered on 01/15/18at 08 :23; Start 01/08/18 at 21:00 Hydralazine HCl (Apresoline Inj) 10 mg Q4H PRN IV PUSH SYS BP GREATER THAN 160 MMHG Last administered on 01/14/18at 00:33; Start 01/08/18 at 16:45 Potassium Chloride 100 ml @ 50 mls/hr Q2H PRN IV For Potassium 2.8 - 3.2 mEq/ L Last administered on 01/09/18at 15:22; Start 01/09/18 at 10:30; Stop 01/14/18 at 10:12; Status DC Potassium Chloride 100 ml @ 50 mls/hr Q2H PRN IV For Potassium 2.8 - 3.2 mEq/L ; Start 01/09/18 at 10:30; Stop 01/14/18 at 10:12; Status DC Potassium Bicarb/ Potassium Chloride (K-Lyte Cl Eff) 50 meq UNSCH PRN PO For Potassium 3.3 - 3.5 mEq/L; Start 01/09/18 at 10:30; Stop 01/14/18 at 10:12; Status DC Potassium Chloride 100 ml @ 25 mls/hr UNSCH PRN IV For Potassium 3.3 - 3.5 mEq /L; Start 01/09/18 at 10:30; Stop 01/14/18 at 10:12; Status DC Potassium Chloride 100 ml @ 50 mls/hr Q2H PRN IV For Potassium 3.3 - 3.5 mEq/L ; Start 01/09/18 at 10:30; Stop 01/14/18 at 10:12; Status DC Magnesium Sulfate 4 gm/Sodium Chloride 100 ml @ 50 mls/hr UNSCH PRN IV For Magnesium 0.9 - 1.1 mg/dL; Start 01/09/18 at 10:30; Stop 01/14/18 at 10:12; Status DC Magnesium Oxide (Mag-Ox) 800 mg UNSCH PRN PO For Magnesium 1.2 - 1.6 mg/dL; Start 01/09/18 at 10:30; Stop 01/14/18 at 10:12; Status DC Magnesium Sulfate 2 gm/Sodium Chloride 100 ml @ 50 mls/hr UNSCH PRN IV For Magnesium 1.2 - 1.6 mg/dL; Start 01/09/18 at 10:30; Stop 01/14/18 at 10:12; Status DC Potassium Phosphate (K-Phos) 2,000 mg Q4H PRN PO For Phosphorus < 2.5 mg/dL; Start 01/09/18 at 10:30; Stop 01/14/18 at 10:12; Status DC Sodium Phosphate 30 mmol/Sodium Chloride 250 ml @ 42 mls/hr UNSCH PRN IV For Phosphorus < 2.5 mg/dL; Start 01/09/18 at 10:30; Stop 01/14/18 at 10:12; Status DC Potassium Phosphate (K-Phos) 2,000 mg UNSCH PRN PO/TUBE SEE LABEL COMMENTS; Start 01/09/18 at 10:30; Stop 01/14/18 at 10:12; Status DC Potassium Phosphate 30 mmol/ Sodium Chloride 260 ml @ 42 mls/hr UNSCH PRN IV SEE LABEL COMMENTS; Start 01/09/18 at 10:30; Stop 01/14/18 at 10:12; Status DC Dextrose 1,000 ml @ 42 mls/hr [id number] IV Last administered on 01/09/18at 11:12 ; Start 01/09/18 at 11:00; Stop 01/10/18 at 09:15; Status DC Famotidine (Pepcid) 10 mg BID PO Last administered on 01/15/18at 08:24; Start at 21:00 Methylprednisolone Sodium Succinate (SoluMEDROL INJ) 40 mg DAILY IV PUSH Last administered on 01/15/18at 08:23; Start 01/11/18 at 09:00 Regadenoson (Lexiscan Inj) 0.4 mg STK-MED ONCE .ROUTE Last administered on 01/10at 10:53; Start 01/10/18 at 10:53; Stop 01/10/18 at 10:54; Status DC Potassium Phosphate 30 mmol/ Sodium Chloride 260 ml @ 42 mls/hr ONCE ONCE IV Last administered on 01/11/18at 12:47; Start 01/11/18 at 10:00; Stop 01/11/18 at 16:11; Status DC Potassium Chloride 100 ml @ 25 mls/hr ONCE ONCE IV Last administered on at 12:47; Start 01/11/18 at 08:45; Stop 01/11/18 at 12:44; Status DC Heparin Sodium (Porcine) (Heparin Central Flush) 300 units DAILY IV FLUSH Last administered on 01/15/18at 08:23; Start 01/12/18 at 09:00 Heparin Sodium (Porcine) (Heparin Central Flush) 300 units UNSCH PRN IV FLUSH FLUSH AFTER USING IV ACCESS; Start 01/11/18 at 20:00 Guaifenesin (Mucinex Er) 600 mg BID PO Last administered on 01/15/18at 08:24; Start 01/14/18 at 10:45 A/P Assessment and Plan 1. resp Insuff- extubated 01/08 2. Pneumonia. -- Improved 3. Acute kidney injury..Resolved 4. Lymphoma. 5. Elevated troponin. 6. Leukocytosis. 7. Anemia. 8. History of hypertension. 9. History of coronary artery disease. 10. Hyperlipidemia. 11. History of benign prostatic hyperplasia. Plan Neuro: Awake, monitor neuro status, avoid sedatives CT jd: No acute intracranial abnormalities Pulm: Continue with oxygen and maintain sats > 92%. Bronchodilators(DuoNeb, Symbicort), decrease Solu-Medrol 40 mg IV daily NIPPV PRN for resp distress CT chest: Small right pleural effusion with adjacent compressive atelectasis. 7 mm noncalcified nodule within the left lower lobe laterally which is indeterminate. . Right axillary fluid collection measuring 6.0 x 3.1 x 4.3 cm consistent with possible seroma CV on Lopressor 50mg Q12: Monitor HR and BP keep MAP>65mmHG Cards is following- Dr. Gillespie For nuc. stress test today was stable Echo showed EF 55-60%, no RWMA Was stable : Monitor renal function, I's and O's and avoid nephrotoxins. Electrolytes replacement as needed CT abd/pelvis: No hydronephrosis, stones or masses. Right renal cyst GI: Pepcid 10 mg PO q.12 hours. On PO diet Heme: Monitor CBC , coags, Onc is following ID: On Zosyn and azithromycin. Monitor for signs of infections(Fever and WBC). Cultures: NGTD, Strep pneumonia, legionella urinary antigen negative CXR 01/09 improving lung aeration with decrease airspace disease Endo: SSI with Accu-Cheks for glycemic control GI prophylaxis with Pepcid and DVT prophylaxis with SCDs for now. Lines: left subclavian Infusaport and peripheral IVs.77-year-old male admitted with acute hypoxic respiratory failure. Underwent intubated course, eventually extubated. Acute hypoxic respiratory failure likely 2/2 PNA -On 2 L, instructed nursing to wean aggressively, wean as tolerated, continue DuoNeb Symbicort and Solu-Medrol - CT chest: Small right pleural effusion with adjacent compressive atelectasis. 7 mm noncalcified nodule within the left lower lobe laterally which is indeterminate. . Right axillary fluid collection measuring 6.0 x 3.1 x 4.3 cm consistent with possible seroma -On Zosyn and azithromycin. Hypertension -Continue Lopressor, EF is preserved on echocardiogram, stress test is neg for acute reversible ischemia GI prophylaxis with Pepcid and DVT prophylaxis with SCDs for now. Hopefully discharge in the next 24-48 hours Physical therapy thinks the patient needs to go to rehab Discharge Planning Patient states lives with his hopefully TO SNF in the next 24-48 hours Tony Ryan DO Jan 15, 2018 12:18
[2018-01-15 12:33] LABS: ALBUMIN 2.2 GM/DL (3.4-5.0); AST (GOT) 20 U/L (15-37); BICARBONATE 31.8 MEQ/L (21.0-32.0); BLOOD UREA NITROGEN 13 MG/DL (7-18); CALCIUM 8.5 MG/DL (8.5-10.1); CHLORIDE 106 MEQ/L (98-107); CREATININE 0.95 MG/DL (0.60-1.30); GLOMERULAR FILTRATION RATE 77 ML/MIN (>89); GLUCOSE,RANDOM 84 MG/DL (74-106); MAGNESIUM 1.4 MG/DL (1.5-2.5); SODIUM (NA) 144 MEQ/L (136-145)
[2018-01-15 12:36] LABS: BANDS 2 % (0-6); MONOCYTES 5 % (0-8); MYELOCYTES 1 % (0-0); NEUTROPHIL # MANUAL DIFF 14.5 TH/MM3 (1.8-7.7); POLYS (SEG NEUTROPHILS) 92 % (16-70)
[2018-01-15 12:37] LABS: KERATOCYTES OCC (NORMAL); OVALOCYTES 1+ (NORMAL); TEARDROP RBCS 1+ (NORMAL)
[2018-01-15 12:52] LABS: ALKALINE PHOSPHATASE 65 U/L (45-117); ALT (GPT) 18 U/L (12-78); FREE T4 1.23 NG/DL (0.76-1.46); PHOSPHORUS 1.5 MG/DL (2.5-4.9); TOTAL BILIRUBIN ADULT 0.4 MG/DL (0.2-1.0); TOTAL PROTEIN 5.1 GM/DL (6.4-8.2)
[2018-01-16] VITALS (8 sets, daily range): BP systolic 142–177; BP diastolic 69–90; PULSE 57–78; RESP 17–18; TEMP 96.6–98.5; O2SAT 98–100
[2018-01-16] MEDS: PIPERACIL-TAZO 3.375 GM PREMIX 50 ML IV SCH ×5 (00:02→23:54)
[2018-01-16] MEDS: CHLORHEXIDINE GLUCONATE 2 % 1 PACK (2 CLOTHS) TOP SCH ×2 (04:00→21:39)
[2018-01-16] MEDS: INSULIN NovoLIN REGULAR SUPPLEMENTAL SCALE SQ SCH ×4 (04:00→21:38)
[2018-01-16] MEDS: guaiFENesin E.R. 600 MG TAB PO SCH ×2 (08:45→21:37)
[2018-01-16] MEDS: METOPROLOL TARTRATE 50 MG TAB PO SCH ×2 (08:45→21:38)
[2018-01-16] MEDS: DOCUSATE SODIUM 50 MG/SENNA 8.6 MG TAB PO SCH ×2 (08:45→21:00)
[2018-01-16] MEDS: FAMOTIDINE 20 MG TAB PO SCH ×2 (08:48→21:39)
[2018-01-16] MEDS: AZITHROMYCIN INJ 500 MG in SODIUM CHLOR 0.9% 250 ML INJ 250 ML IV SCH (10:48)
[2018-01-16] MEDS: BUDESONIDE-FORMOTEROL 160/4.5 MCG INHALER INH SCH ×2 (10:48→21:38)
[2018-01-16] MEDS: methylPREDNISolone SOD SUCC 40 MG/1 ML VIAL IV PUSH SCH (10:52)
[2018-01-16 11:43] LABS: AUTOMATED NEUTROPHIL # 11.6 TH/MM3 (1.8-7.7); BASOPHIL % 0.1 % (0.0-2.0); EOSINOPHIL # 0.1 TH/MM3 (0-0.4); EOSINOPHIL % 0.4 % (0.0-4.0); HEMATOCRIT 27.5 % (39.0-51.0); HEMOGLOBIN 8.7 GM/DL (13.0-17.0); LYMPH % 0.7 % (9.0-44.0); LYMPHOCYTE # 0.1 TH/MM3 (1.0-4.8); MEAN CELL VOLUME 95.3 FL (80.0-100.0); MEAN CORPUSCULAR HEMOGLOBIN 30.3 PG (27.0-34.0); MEAN CORPUSCULAR HGB CONC 31.7 % (32.0-36.0); MEAN PLATELET VOLUME 9.9 FL (7.0-11.0); MONO % 11.5 % (0.0-8.0); MONOCYTE # 1.5 TH/MM3 (0-0.9); NEUT % 87.3 % (16.0-70.0); PLATELET COUNT 265 TH/MM3 (150-450); RED BLOOD COUNT 2.88 MIL/MM3 (4.50-5.90); RED CELL DISTRIBUTION WIDTH 20.5 % (11.6-17.2); WHITE BLOOD COUNT 13.3 TH/MM3 (4.0-11.0)
[2018-01-16 12:12] LABS: AST (GOT) 16 U/L (15-37); BICARBONATE 31.6 MEQ/L (21.0-32.0); BLOOD UREA NITROGEN 11 MG/DL (7-18); CALCIUM 8.3 MG/DL (8.5-10.1); CHLORIDE 107 MEQ/L (98-107); CREATININE 0.87 MG/DL (0.60-1.30); GLOMERULAR FILTRATION RATE 85 ML/MIN (>89); GLUCOSE,RANDOM 79 MG/DL (74-106); MAGNESIUM 1.5 MG/DL (1.5-2.5); SODIUM (NA) 145 MEQ/L (136-145)
[2018-01-16 12:13] LABS: ALT (GPT) 18 U/L (12-78); PHOSPHORUS 1.9 MG/DL (2.5-4.9)
[2018-01-16 12:16] LABS: ALKALINE PHOSPHATASE 57 U/L (45-117); TOTAL BILIRUBIN ADULT 0.3 MG/DL (0.2-1.0); TOTAL PROTEIN 4.7 GM/DL (6.4-8.2)
[2018-01-16] MEDS ORDERED: MAGNESIUM OXIDE 400 MG TAB PO ONE (14:15)
[2018-01-16] MEDS ORDERED: POTASSIUM CHLORIDE 10 MEQ CAP PO ONE (14:15)
--- NOTE | 2018-01-16 14:21 | HHI.PR ---
Subjective Remarks Follow-up pneumonia, acute kidney injury. The patient states that he feels much better today. He denies chest pain, dyspnea, nausea, vomiting. He wants to go to rehab. Objective Vitals Vital Signs Date Time Temp Pulse Resp B/P (MAP) Pulse Ox O2 Delivery O2 Flow Rate FiO2 01/16/18 12:00 97.8 58 18 162/74 (103) 98 01/16/18 10:12 100 Nasal Cannula 2.00 01/16/18 08:00 97.8 72 17 174/78 (110) 98 01/16/18 04:34 98.5 57 18 143/90 (107) 99 01/16/18 00:05 98.1 70 18 171/85 (113) 98 01/15/18 22:22 97 Nasal Cannula 2.00 01/15/18 19:30 Nasal Cannula 2.00 01/15/18 19:10 98.1 61 19 155/66 (95) 100 01/15/18 19:04 98.1 65 18 186/81 (116) 01/15/18 16:00 97.8 63 18 158/65 (96) 98 I/O 01/15/18 01/15/18 01/15/18 01/16/18 01/16/18 01/16/18 06:59 14:59 22:59 06:59 14:59 22:59 Intake Total 120 ml 240 ml Output Total 700 ml 250 ml 750 ml Balance -580 ml -250 ml -510 ml Intake Oral 120 ml 240 ml Output Urine Total 700 ml 250 ml 750 ml # Voids 1 Result Diagram: 01/16/18 1105 01/16/18 1105 Imaging Last Impressions Myocardial Perfusion Scan Nuc Med 01/10/18 0000 Signed Impressions: Service Date/Time: Wednesday, January 10, 2018 10:38 - CONCLUSION: 1. No evidence of stress-induced reversible perfusion abnormality. 2. Fixed hypoperfusion in the anterior inferior callaway 3. Well-maintained lung motion and ejection fraction. RISK CATEGORY: Low (<1%% Annual Mortality Rate) Marc Navarro MD Chest X-Ray 01/09/18 0000 Signed Impressions: Service Date/Time: Tuesday, January 09, 2018 10:43 - CONCLUSION: 1. Status post extubation. 2. Improving lung aeration with decreasing air space disease. 3. Otherwise stable chest Marc Navarro MD Chest CT 01/07/18 0943 Signed Impressions: Service Date/Time: Sunday, January 07, 2018 10:59 - CONCLUSION: 1. Small right pleural effusion with adjacent compressive atelectasis. 2. Tiny left pleural effusion. 3. 7 mm noncalcified nodule within the left lower lobe laterally which is indeterminate. Followup CT the chest in 6 months would be helpful to confirm stability of this finding. 4. Scattered discoid atelectasis bilaterally. 5. Right axillary fluid collection measuring 6.0 x 3.1 x 4.3 cm consistent with possible seroma if the patient has had surgery in this location. 6. Right axillary lymphadenopathy with the largest lymph node measuring 16 mm. 7. Coronary artery calcifications. Fabian Villegas MD Head CT 01/07/18 0802 Signed Impressions: Service Date/Time: Sunday, January 07, 2018 10:53 - CONCLUSION: 1. No acute intracranial abnormality. 2. Moderate mucosal thickening involving the maxillary and ethmoid sinuses bilaterally. Fabian Villegas MD Abdomen/Pelvis CT 01/07/18 0000 Signed Impressions: Service Date/Time: Sunday, January 07, 2018 10:59 - CONCLUSION: 1. Small right pleural effusion with adjacent compressive atelectasis. 2. 7 mm noncalcified nodule within the left lower lobe which is indeterminate. 3. 4.1 x 2.6 cm lobulated low density lesion within the right lobe of liver which is indeterminate on this unenhanced examination. Outpatient MRI of the abdomen with contrast may be helpful for further characterization of this finding. 4. 4 cm lower pole right renal cyst. 5. Degenerative changes and scoliosis of the thoracolumbar spine. 6. Enlarged prostate. 7. Uncomplicated colonic diverticulosis. 8. Gallbladder sludge. Fabian Villegas MD Objective Remarks General: No acute distress. Heart: Regular rate and rhythm. No murmur. Lungs: Scattered rhonchi. Breathing is nonlabored. Abdomen: Soft, nontender, nondistended. Extremities: No lower extremity edema. Psych: Alert, answers questions appropriately. Procedures Respiratory failure with mechanical ventilation and intubation Urinary Catheter: No Vascular Central Line Catheter: No A/P Assessment and Plan 1. Acute respiratory failure: Resolved. Likely secondary to pneumonia. Patient extubated 01/08/18. Continue supplemental oxygen. Taper steroids. 2. Pneumonia: Improved. Continue supplemental oxygen, bronchodilators. Continue antibiotics. 3. Acute kidney injury: Resolved. 4. Lymphoma: Chronic. Follow-up as outpatient. 5. Anemia: H&H low, but stable. 6. Hypertension: Continue Lopressor. Blood pressure has been elevated. Restart benazepril/HCTZ. 7. Coronary artery disease, elevated troponin: Currently asymptomatic. Appreciate cardiology recommendations. Nuclear stress test was nonischemic. Echocardiogram showed ejection fraction 55-60%. 8. Hyperlipidemia: Restart statin. 9. Hypokalemia: Supplement potassium. 10. Hypomagnesemia: Supplement magnesium. 11. GI prophylaxis: Famotidine. 12. DVT prophylaxis: SCDs. Discharge Planning Plan for discharge soon to SNF versus inpatient rehab. Case management assisting with discharge planning. Sb Vasquez MD Jan 16, 2018 14:21
[2018-01-16] MEDS: LISINOPRIL 20 MG TAB PO SCH (14:57)
[2018-01-16] MEDS: HYDROCHLOROTHIAZIDE 25 MG TAB PO SCH (14:57)
[2018-01-16 17:01] LABS: HEMOGLOBIN A1C 5.4 % (4.3-6.0)
[2018-01-16] MEDS: SODIUM CHLORIDE 0.9% FLUSH 10 ML FLUSH IVF PRN (21:37)
[2018-01-17] VITALS (8 sets, daily range): BP systolic 153–196; BP diastolic 65–82; PULSE 54–65; RESP 17–20; TEMP 96–98.7; O2SAT 98–100
[2018-01-17] MEDS: INSULIN NovoLIN REGULAR SUPPLEMENTAL SCALE SQ SCH ×4 (04:00→22:00)
[2018-01-17] MEDS: PIPERACIL-TAZO 3.375 GM PREMIX 50 ML IV SCH ×4 (04:57→22:52)
[2018-01-17] MEDS ORDERED: ENALAPRILAT 2.5 MG/2 ML VIAL IV PUSH ONE (05:15)
[2018-01-17] MEDS: ASPIRIN 81 MG CHEW TAB CHEW SCH (08:39)
[2018-01-17] MEDS: PRAVASTATIN SOD 40 MG TAB PO SCH (08:39)
[2018-01-17] MEDS: LISINOPRIL 20 MG TAB PO SCH (08:39)
[2018-01-17] MEDS: HYDROCHLOROTHIAZIDE 25 MG TAB PO SCH (08:39)
[2018-01-17] MEDS: FAMOTIDINE 20 MG TAB PO SCH ×2 (08:40→20:02)
[2018-01-17] MEDS: METOPROLOL TARTRATE 50 MG TAB PO SCH ×2 (08:40→20:02)
[2018-01-17] MEDS: CLOPIDOGREL 75 MG TAB PO SCH (08:40)
[2018-01-17] MEDS: DOCUSATE SODIUM 50 MG/SENNA 8.6 MG TAB PO SCH ×2 (08:40→20:02)
[2018-01-17] MEDS: guaiFENesin E.R. 600 MG TAB PO SCH ×2 (08:40→20:02)
[2018-01-17] MEDS: methylPREDNISolone SOD SUCC 40 MG/1 ML VIAL IV PUSH SCH (08:41)
[2018-01-17] MEDS: BUDESONIDE-FORMOTEROL 160/4.5 MCG INHALER INH SCH ×2 (08:43→20:05)
[2018-01-17] MEDS: AZITHROMYCIN INJ 500 MG in SODIUM CHLOR 0.9% 250 ML INJ 250 ML IV SCH (08:50)
--- NOTE | 2018-01-17 10:42 | HHI.PR ---
Subjective Remarks Follow-up pneumonia, acute kidney injury. The patient has no complaints at this time. He states that he is ready to get out of the hospital. Objective Vitals Vital Signs Date Time Temp Pulse Resp B/P (MAP) Pulse Ox O2 Delivery O2 Flow Rate FiO2 01/17/18 08:00 97.8 54 18 178/77 (110) 100 01/17/18 06:12 98.7 62 18 156/70 (98) 98 01/17/18 05:12 98.2 56 17 196/78 (117) 98 01/17/18 04:12 96.0 55 19 182/79 (113) 100 01/16/18 23:53 96.6 61 18 142/69 (93) 99 01/16/18 23:44 Nasal Cannula 2.00 01/16/18 20:39 98.0 78 18 177/79 (111) 98 01/16/18 20:06 Nasal Cannula 2.00 01/16/18 16:00 98.1 63 18 151/70 (97) 99 01/16/18 12:00 97.8 58 18 162/74 (103) 98 I/O 01/16/18 01/16/18 01/16/18 01/17/18 01/17/18 01/17/18 07:00 15:00 23:00 07:00 15:00 23:00 Intake Total 240 ml 480 ml Output Total 750 ml 1400 ml Balance -510 ml -920 ml Intake Oral 240 ml 480 ml Output Urine Total 750 ml 1400 ml Result Diagram: 01/16/18 1105 01/16/18 1105 Imaging Last Impressions Myocardial Perfusion Scan Nuc Med 01/10/18 0000 Signed Impressions: Service Date/Time: Wednesday, January 10, 2018 10:38 - CONCLUSION: 1. No evidence of stress-induced reversible perfusion abnormality. 2. Fixed hypoperfusion in the anterior inferior callaway 3. Well-maintained lung motion and ejection fraction. RISK CATEGORY: Low (<1%% Annual Mortality Rate) Marc Navarro MD Chest X-Ray 01/09/18 0000 Signed Impressions: Service Date/Time: Tuesday, January 09, 2018 10:43 - CONCLUSION: 1. Status post extubation. 2. Improving lung aeration with decreasing air space disease. 3. Otherwise stable chest Marc Navarro MD Chest CT 01/07/18 0943 Signed Impressions: Service Date/Time: Sunday, January 07, 2018 10:59 - CONCLUSION: 1. Small right pleural effusion with adjacent compressive atelectasis. 2. Tiny left pleural effusion. 3. 7 mm noncalcified nodule within the left lower lobe laterally which is indeterminate. Followup CT the chest in 6 months would be helpful to confirm stability of this finding. 4. Scattered discoid atelectasis bilaterally. 5. Right axillary fluid collection measuring 6.0 x 3.1 x 4.3 cm consistent with possible seroma if the patient has had surgery in this location. 6. Right axillary lymphadenopathy with the largest lymph node measuring 16 mm. 7. Coronary artery calcifications. Fabian Villegas MD Head CT 01/07/18 0802 Signed Impressions: Service Date/Time: Sunday, January 07, 2018 10:53 - CONCLUSION: 1. No acute intracranial abnormality. 2. Moderate mucosal thickening involving the maxillary and ethmoid sinuses bilaterally. Fabian Villegas MD Abdomen/Pelvis CT 01/07/18 0000 Signed Impressions: Service Date/Time: Sunday, January 07, 2018 10:59 - CONCLUSION: 1. Small right pleural effusion with adjacent compressive atelectasis. 2. 7 mm noncalcified nodule within the left lower lobe which is indeterminate. 3. 4.1 x 2.6 cm lobulated low density lesion within the right lobe of liver which is indeterminate on this unenhanced examination. Outpatient MRI of the abdomen with contrast may be helpful for further characterization of this finding. 4. 4 cm lower pole right renal cyst. 5. Degenerative changes and scoliosis of the thoracolumbar spine. 6. Enlarged prostate. 7. Uncomplicated colonic diverticulosis. 8. Gallbladder sludge. Fabian Villegas MD Objective Remarks General: No acute distress. Heart: Regular rate and rhythm. No murmur. Lungs: Clear to auscultation. Breathing is nonlabored. Abdomen: Soft, nontender, nondistended. Extremities: No lower extremity edema. Psych: Alert, answers questions appropriately. Procedures Respiratory failure with mechanical ventilation and intubation Urinary Catheter: No Vascular Central Line Catheter: No A/P Assessment and Plan 1. Acute respiratory failure: Resolved. Likely secondary to pneumonia. Patient extubated 01/08/18. Continue supplemental oxygen. Taper steroids. 2. Pneumonia: Improved. Continue supplemental oxygen, bronchodilators. Continue antibiotics. 3. Acute kidney injury: Resolved. 4. Lymphoma: Chronic. Follow-up as outpatient. 5. Anemia: H&H low, but stable. 6. Hypertension: Continue Lopressor, lisinopril, HCTZ. Blood pressure has been elevated. Restart Hytrin. 7. Coronary artery disease, elevated troponin: Currently asymptomatic. Appreciate cardiology recommendations. Nuclear stress test was nonischemic. Echocardiogram showed ejection fraction 55-60%. 8. Hyperlipidemia: Restart statin. 9. Hypokalemia: Labs are pending today. 10. Hypomagnesemia: Labs are pending today. 11. GI prophylaxis: Famotidine. 12. DVT prophylaxis: SCDs. Discharge Planning Plan for discharge to SNF versus inpatient rehab when arrangements can be made. Case management assisting with discharge planning. Sb Vasquez MD Jan 17, 2018 10:42
[2018-01-17] MEDS ORDERED: MEDR4PAK PO (10:47)
[2018-01-17] MEDS ORDERED: METO-309 PO (10:47)
--- NOTE | 2018-01-17 10:48 | HHI.DCPOC ---
Discharge Care Plan Diagnosis: (1) Acute respiratory failure (2) Acute kidney injury (3) Pneumonia (4) Hypomagnesemia (5) Hypokalemia (6) Elevated troponin I level (7) Respiratory acidosis (8) Bilateral pneumonia (9) Endotracheally intubated (10) Troponin level elevated Goals to Promote Your Health * To prevent worsening of your condition and complications * To maintain your health at the optimal level Directions to Meet Your Goals Take your medications as prescribed Follow your dietary instruction Follow activity as directed Keep your appointments as scheduled Take your immunizations and boosters as scheduled If your symptoms worsen call your PCP, if no PCP go to Urgent Care Center or Emergency Room Smoking is Dangerous to Your Health. Avoid second hand smoke Call the 24-hour hour crisis hotline for domestic abuse at Sb Vasquez MD Jan 17, 2018 10:48
[2018-01-17 17:57] LABS: BICARBONATE 29.7 MEQ/L (21.0-32.0); CALCIUM 8.7 MG/DL (8.5-10.1); CREATININE 1.09 MG/DL (0.60-1.30); MAGNESIUM 1.5 MG/DL (1.5-2.5)
[2018-01-17 18:11] LABS: AUTOMATED NEUTROPHIL # 11.2 TH/MM3 (1.8-7.7); BASOPHIL % 0.3 % (0.0-2.0); EOSINOPHIL % 0.1 % (0.0-4.0); HEMATOCRIT 31.4 % (39.0-51.0); LYMPH % 1.4 % (9.0-44.0); LYMPHOCYTE # 0.2 TH/MM3 (1.0-4.8); MEAN CELL VOLUME 96.6 FL (80.0-100.0); MEAN CORPUSCULAR HEMOGLOBIN 30.7 PG (27.0-34.0); MEAN CORPUSCULAR HGB CONC 31.7 % (32.0-36.0); MEAN PLATELET VOLUME 10.1 FL (7.0-11.0); MONO % 2.9 % (0.0-8.0); MONOCYTE # 0.3 TH/MM3 (0-0.9); NEUT % 95.3 % (16.0-70.0); PLATELET COUNT 262 TH/MM3 (150-450); RED BLOOD COUNT 3.25 MIL/MM3 (4.50-5.90); RED CELL DISTRIBUTION WIDTH 21.4 % (11.6-17.2); WHITE BLOOD COUNT 11.7 TH/MM3 (4.0-11.0)
[2018-01-17 19:26] LABS: OVALOCYTES 1+ (NORMAL)
[2018-01-17 19:27] LABS: KERATOCYTES OCC (NORMAL); TEARDROP RBCS 1+ (NORMAL)
[2018-01-17] MEDS: TERAZOSIN HCL 5 MG CAP PO SCH (20:03)
[2018-01-18 04:00] VITALS: BP 159/71; PULSE 70; RESP 18; TEMP 97.6; O2SAT 99
[2018-01-18] MEDS: INSULIN NovoLIN REGULAR SUPPLEMENTAL SCALE SQ SCH ×4 (04:00→22:32)
[2018-01-18] MEDS: CHLORHEXIDINE GLUCONATE 2 % 1 PACK (2 CLOTHS) TOP SCH (04:00)
[2018-01-18] MEDS: PIPERACIL-TAZO 3.375 GM PREMIX 50 ML IV SCH ×2 (04:38→10:54)
[2018-01-18 07:48] VITALS: BP 131/64; PULSE 57; RESP 18; TEMP 97.5; O2SAT 94
[2018-01-18] MEDS: guaiFENesin E.R. 600 MG TAB PO SCH ×2 (09:00→22:24)
[2018-01-18] MEDS: BUDESONIDE-FORMOTEROL 160/4.5 MCG INHALER INH SCH ×2 (09:00→22:21)
[2018-01-18] MEDS: FAMOTIDINE 20 MG TAB PO SCH ×2 (09:00→22:24)
[2018-01-18] MEDS: DOCUSATE SODIUM 50 MG/SENNA 8.6 MG TAB PO SCH ×2 (09:00→21:00)
[2018-01-18] MEDS: ASPIRIN 81 MG CHEW TAB CHEW SCH (09:15)
[2018-01-18] MEDS: methylPREDNISolone SOD SUCC 40 MG/1 ML VIAL IV PUSH SCH (09:15)
[2018-01-18] MEDS: METOPROLOL TARTRATE 50 MG TAB PO SCH ×2 (09:16→22:24)
[2018-01-18] MEDS: LISINOPRIL 20 MG TAB PO SCH (09:16)
[2018-01-18] MEDS: PRAVASTATIN SOD 40 MG TAB PO SCH (09:16)
[2018-01-18] MEDS: CLOPIDOGREL 75 MG TAB PO SCH (09:16)
[2018-01-18] MEDS: HYDROCHLOROTHIAZIDE 25 MG TAB PO SCH (09:17)
[2018-01-18] MEDS: AZITHROMYCIN INJ 500 MG in SODIUM CHLOR 0.9% 250 ML INJ 250 ML IV SCH (09:17)
--- NOTE | 2018-01-18 10:13 | HHI.DS ---
Discharge Summary Admission Date Jan 07, 2018 at 09:45 Discharge Date: Jan 18, 2018 Admitting Diagnosis Pneumonia/sepsis/intubated (1) Respiratory acidosis ICD Code: E87.2 - Acidosis Status: Acute (2) Severe sepsis ICD Code: A41.9 - Sepsis, unspecified organism; R65.20 - Severe sepsis without septic shock Status: Acute (3) Bilateral pneumonia ICD Code: J18.9 - Pneumonia, unspecified organism Status: Acute (4) Endotracheally intubated ICD Code: Z97.8 - Presence of other specified devices Status: Acute (5) Acute respiratory failure ICD Code: J96.00 - Acute respiratory failure, unspecified whether with hypoxia or hypercapnia (6) Hypokalemia ICD Code: E87.6 - Hypokalemia (7) Hypomagnesemia ICD Code: E83.42 - Hypomagnesemia (8) Pneumonia ICD Code: J18.9 - Pneumonia, unspecified organism (9) Acute kidney injury ICD Code: N17.9 - Acute kidney failure, unspecified (10) Elevated troponin I level ICD Code: R74.8 - Abnormal levels of other serum enzymes Procedures Respiratory failure with mechanical ventilation and intubation Brief History - From Admission The patient is a 77-year-old male with a past medical history of coronary artery disease, hypertension, hyperlipidemia, BPH and lymphoma, on radiation treatment and chemotherapy. He presented to [facility] ED from a rehab facility for lethargy, hypoxemia, and low saturation. Initially, he was placed on a BiPAP and ABG was performed, which showed acute hypercapnic respiratory failure with a pH of 7.14, CO2 of 103, PaO2 of 89, bicarbonate 34, and saturation 92%. He was subsequently intubated with etomidate, succinylcholine, and placed on full mechanical ventilation. A chest x-ray in the ER showed bibasilar patchiness and small right pleural effusion. According to the patient's family, he underwent a blood transfusion on 01/12/2018 after he received his first cycle of chemotherapy and then shortly after he was readmitted in [place] for fever, pneumonia and sepsis. The patient was eventually discharged to a rehab facility. There is no history of home oxygen or use of bronchodilators. The patient quit smoking in October and used to smoke a pack and half a day for about 60 years. His laboratory data is significant for leukocytosis with a WBC of 17.7, acute kidney injury with a creatinine of 1.82. His lactic acid level measured at 0.8. Chest x-ray post-intubation showed ET tube above the nelson, left subclavian Infusaport in place, bibasilar atelectasis and/or infiltrate and small right pleural effusion. When seen, the patient is sedated with Diprivan and on full mechanical ventilation. His blood pressure 175/94 with a pulse of 100. The patient is afebrile. CBC/BMP: 01/17/18 1518 01/17/18 1518 Significant Findings Laboratory Tests Test 01/15/18 11:30 01/16/18 11:05 01/17/18 15:18 White Blood Count 15.3 TH/MM3 (4.0-11.0) 13.3 TH/MM3 (4.0-11.0) 11.7 TH/MM3 (4.0-11.0) Red Blood Count 3.19 MIL/MM3 (4.50-5.90) 2.88 MIL/MM3 (4.50-5.90) 3.25 MIL/MM3 (4.50-5.90) Hemoglobin 9.6 GM/DL (13.0-17.0) 8.7 GM/DL (13.0-17.0) 10.0 GM/DL (13.0-17.0) Hematocrit 30.3 % (39.0-51.0) 27.5 % (39.0-51.0) 31.4 % (39.0-51.0) Mean Corpuscular Hemoglobin Concent 31.7 % (32.0-36.0) 31.7 % (32.0-36.0) 31.7 % (32.0-36.0) Red Cell Distribution Width 21.0 % (11.6-17.2) 20.5 % (11.6-17.2) 21.4 % (11.6-17.2) Neutrophils (%) (Auto) 92.9 % (16.0-70.0) 87.3 % (16.0-70.0) 95.3 % (16.0-70.0) Lymphocytes (%) (Auto) 0.8 % (9.0-44.0) 0.7 % (9.0-44.0) 1.4 % (9.0-44.0) Neutrophils # (Auto) 14.2 TH/MM3 (1.8-7.7) 11.6 TH/MM3 (1.8-7.7) 11.2 TH/MM3 (1.8-7.7) Lymphocytes # (Auto) 0.1 TH/MM3 (1.0-4.8) 0.1 TH/MM3 (1.0-4.8) 0.2 TH/MM3 (1.0-4.8) Neutrophils % (Manual) 92 % (16-70) Neutrophils # (Manual) 14.5 TH/MM3 (1.8-7.7) Myelocytes 1 % (0-0) Tear Drop Cells 1+ (NORMAL) 1+ (NORMAL) Ovalocytes 1+ (NORMAL) 1+ (NORMAL) Total Protein 5.1 GM/DL (6.4-8.2) 4.7 GM/DL (6.4-8.2) Albumin 2.2 GM/DL (3.4-5.0) 2.0 GM/DL (3.4-5.0) Phosphorus Level 1.5 MG/DL (2.5-4.9) 1.9 MG/DL (2.5-4.9) Magnesium Level 1.4 MG/DL (1.5-2.5) Estimat Glomerular Filtration Rate 77 ML/MIN (>89) 85 ML/MIN (>89) 65 ML/MIN (>89) Monocytes (%) (Auto) 11.5 % (0.0-8.0) Monocytes # (Auto) 1.5 TH/MM3 (0-0.9) Calcium Level 8.3 MG/DL (8.5-10.1) Potassium Level 3.3 MEQ/L (3.5-5.1) Platelet Morphology Comment ENLARGED (NORMAL) Random Glucose 136 MG/DL (74-106) Imaging Last Impressions Myocardial Perfusion Scan Nuc Med 01/10/18 0000 Signed Impressions: Service Date/Time: Wednesday, January 10, 2018 10:38 - CONCLUSION: 1. No evidence of stress-induced reversible perfusion abnormality. 2. Fixed hypoperfusion in the anterior inferior callaway 3. Well-maintained lung motion and ejection fraction. RISK CATEGORY: Low (<1%% Annual Mortality Rate) Marc Navarro MD Chest X-Ray 01/09/18 0000 Signed Impressions: Service Date/Time: Tuesday, January 09, 2018 10:43 - CONCLUSION: 1. Status post extubation. 2. Improving lung aeration with decreasing air space disease. 3. Otherwise stable chest Marc Navarro MD Chest CT 01/07/18 0943 Signed Impressions: Service Date/Time: Sunday, January 07, 2018 10:59 - CONCLUSION: 1. Small right pleural effusion with adjacent compressive atelectasis. 2. Tiny left pleural effusion. 3. 7 mm noncalcified nodule within the left lower lobe laterally which is indeterminate. Followup CT the chest in 6 months would be helpful to confirm stability of this finding. 4. Scattered discoid atelectasis bilaterally. 5. Right axillary fluid collection measuring 6.0 x 3.1 x 4.3 cm consistent with possible seroma if the patient has had surgery in this location. 6. Right axillary lymphadenopathy with the largest lymph node measuring 16 mm. 7. Coronary artery calcifications. Fabian Villegas MD Head CT 01/07/18 0802 Signed Impressions: Service Date/Time: Sunday, January 07, 2018 10:53 - CONCLUSION: 1. No acute intracranial abnormality. 2. Moderate mucosal thickening involving the maxillary and ethmoid sinuses bilaterally. Fabian Villegas MD Abdomen/Pelvis CT 01/07/18 0000 Signed Impressions: Service Date/Time: Sunday, January 07, 2018 10:59 - CONCLUSION: 1. Small right pleural effusion with adjacent compressive atelectasis. 2. 7 mm noncalcified nodule within the left lower lobe which is indeterminate. 3. 4.1 x 2.6 cm lobulated low density lesion within the right lobe of liver which is indeterminate on this unenhanced examination. Outpatient MRI of the abdomen with contrast may be helpful for further characterization of this finding. 4. 4 cm lower pole right renal cyst. 5. Degenerative changes and scoliosis of the thoracolumbar spine. 6. Enlarged prostate. 7. Uncomplicated colonic diverticulosis. 8. Gallbladder sludge. Fabian Villegas MD PE at Discharge General: No acute distress. Heart: Regular rate and rhythm. No murmur. Lungs: Clear to auscultation. Breathing is nonlabored. Abdomen: Soft, nontender, nondistended. Extremities: No lower extremity edema. Psych: Alert, answers questions appropriately. Pt update on day of discharge The patient has no complaints at this time. He denies chest pain, dyspnea, nausea, vomiting. Hospital Course She was admitted to the critical care service for management of acute hypoxemic and hypercapnic respiratory failure. He was intubated and placed on mechanical ventilation. He was continued on antibiotics for pneumonia. Gastroenterology was consulted for evaluation of anemia, possible GI bleed. Cardiology was consulted for evaluation of elevated troponin. Nuclear cardiac stress test was nonischemic. Hematology was consulted due to the patient's history of lymphoma. The patient improved clinically and was transferred out of the intensive care unit. Physical therapy and occupational therapy were continued. Patient's respiratory status continued to improve. He was felt to be stable for discharge to fdc facility. Pt Condition on Discharge: Stable Discharge Disposition: Discharge to SNF Discharge Time: > 30 minutes Discharge Instructions DIET: Follow Instructions for: Heart Healthy Diet Activities you can perform: Regular-No Restrictions Other Activity Instructions: With assistance Follow up Referrals: Cardiology - 2 Weeks with Dangelo Danielle MD Gastroenterology - 2 Weeks with Lia Grullon MD Oncology - 1 Week PCP Follow-up - 2 Weeks New Medications: Methylprednisolone Dosepak (Medrol Dosepak) 4 Mg Dspk 4 MG PO DIRECTED, #1 DSPK 0 Refills Per Pharmacist direction Restart Medrol 2mg PO daily after completion of Dosepak Metoprolol Tartrate (Lopressor) 50 Mg Tab 50 MG PO Q12HR for Blood Pressure Management, #60 TAB 0 Refills Continued Medications: Allopurinol (Allopurinol) 300 Mg Tab 300 MG PO DAILY for Gout, #30 TAB 0 Refills Aspirin (Aspirin) 81 Mg Chew 81 MG CHEW DAILY, TAB 0 Refills Benazepril-Hydrochlorothiazide (Benazepril-Hydrochlorothiazide) 20-25 Mg Tab 1 TAB PO DAILY for Blood Pressure Management, #30 TAB 0 Refills Clopidogrel (Clopidogrel) 75 Mg Tab 75 MG PO DAILY for Blood Clot Prevention, #30 TAB 0 Refills Ferrous Sulfate (Ferrous Sulfate) 325 Mg (65 Mg Iron) Tablet 325 MG PO BIDPC for Nutritional Supplement, #60 TAB 0 Refills Magnesium Oxide (Magnesium Oxide) 400 Mg Tab 400 MG PO DAILY for Nutritional Supplement, TAB 0 Refills Methylprednisolone (Medrol) 2 Mg Tab 2 MG PO DAILY, TAB 0 Refills Mirtazapine (Mirtazapine) 15 Mg Tab 15 MG PO HS for Depression Control, #30 TAB 0 Refills Simvastatin (Simvastatin) 20 Mg Tab 20 MG PO DAILY for Cholesterol Management, #30 TAB 0 Refills Terazosin (Terazosin) 10 Mg Cap 10 MG PO HS, #30 CAP 0 Refills Discontinued Medications: Alprazolam (Xanax) 0.25 Mg Tab 0.25 MG PO Q12HR PRN for ANXIETY, TAB 0 Refills Cefdinir (Cefdinir) 300 Mg Cap 300 MG PO BID for Infection, CAP 0 Refills Doxycycline Monohydrate Liq (Doxycycline Monohydrate Liq) 25 Mg/5 Ml Susp 100 MG PO BID for Infection, #100 ML 0 Refills Metoprolol Tartrate (Metoprolol Tartrate) 75 Mg Tab 75 MG PO BID, #60 TAB 0 Refills Sb Vasquez MD Jan 18, 2018 10:13
[2018-01-18 12:00] VITALS: BP 142/60; PULSE 59; RESP 18; TEMP 97.7; O2SAT 96
[2018-01-18 16:00] VITALS: BP 148/70; PULSE 62; RESP 18; TEMP 98.2; O2SAT 96
[2018-01-18 20:00] VITALS: BP 163/75; PULSE 80; RESP 20; TEMP 97.2; O2SAT 94
[2018-01-18] MEDS: TERAZOSIN HCL 5 MG CAP PO SCH (22:24)
[2018-01-19] VITALS (7 sets, daily range): BP systolic 131–168; BP diastolic 60–87; PULSE 54–96; RESP 18–22; TEMP 97–97.9; O2SAT 94–98
[2018-01-19] MEDS: INSULIN NovoLIN REGULAR SUPPLEMENTAL SCALE SQ SCH ×4 (04:00→21:40)
[2018-01-19] MEDS: CHLORHEXIDINE GLUCONATE 2 % 1 PACK (2 CLOTHS) TOP SCH (04:00)
[2018-01-19] MEDS: PRAVASTATIN SOD 40 MG TAB PO SCH (08:59)
[2018-01-19] MEDS: METOPROLOL TARTRATE 50 MG TAB PO SCH ×2 (08:59→21:32)
[2018-01-19] MEDS: LISINOPRIL 20 MG TAB PO SCH (08:59)
[2018-01-19] MEDS: guaiFENesin E.R. 600 MG TAB PO SCH ×2 (09:00→21:32)
[2018-01-19] MEDS: CLOPIDOGREL 75 MG TAB PO SCH (09:00)
[2018-01-19] MEDS: DOCUSATE SODIUM 50 MG/SENNA 8.6 MG TAB PO SCH ×2 (09:00→21:00)
[2018-01-19] MEDS: methylPREDNISolone SOD SUCC 40 MG/1 ML VIAL IV PUSH SCH (09:00)
[2018-01-19] MEDS: ASPIRIN 81 MG CHEW TAB CHEW SCH (09:00)
[2018-01-19] MEDS: HYDROCHLOROTHIAZIDE 25 MG TAB PO SCH (09:00)
[2018-01-19] MEDS: FAMOTIDINE 20 MG TAB PO SCH ×2 (09:00→21:00)
[2018-01-19] MEDS: BUDESONIDE-FORMOTEROL 160/4.5 MCG INHALER INH SCH ×2 (09:01→21:37)
--- NOTE | 2018-01-19 11:39 | HHI.PR ---
Subjective Remarks Awaiting SNF placement. Patient has no complaints at this time. Denies chest pain, dyspnea. Objective Vitals Vital Signs Date Time Temp Pulse Resp B/P (MAP) Pulse Ox O2 Delivery O2 Flow Rate FiO2 01/19/18 08:36 97.5 54 18 160/71 (100) 94 01/19/18 07:00 94 Room Air 01/19/18 04:00 97.6 96 18 137/81 (99) 97 01/19/18 01:29 Room Air 01/19/18 00:00 97.0 92 18 131/87 (102) 97 01/18/18 20:00 97.2 80 20 163/75 (104) 94 01/18/18 16:00 98.2 62 18 148/70 (96) 96 01/18/18 12:00 97.7 59 18 142/60 (87) 96 I/O 01/18/18 01/18/18 01/18/18 01/19/18 01/19/18 01/19/18 07:00 15:00 23:00 07:00 15:00 23:00 Intake Total 100 ml 240 ml Output Total 780 ml 650 ml Balance -680 ml -410 ml Intake Oral 240 ml IV Total 100 ml Output Urine Total 780 ml 650 ml # Voids 4 3 # Bowel Movements 1 1 Result Diagram: 01/17/18 1518 01/17/18 1518 Imaging Last Impressions Myocardial Perfusion Scan Nuc Med 01/10/18 0000 Signed Impressions: Service Date/Time: Wednesday, January 10, 2018 10:38 - CONCLUSION: 1. No evidence of stress-induced reversible perfusion abnormality. 2. Fixed hypoperfusion in the anterior inferior callaway 3. Well-maintained lung motion and ejection fraction. RISK CATEGORY: Low (<1%% Annual Mortality Rate) Marc Navarro MD Chest X-Ray 01/09/18 0000 Signed Impressions: Service Date/Time: Tuesday, January 09, 2018 10:43 - CONCLUSION: 1. Status post extubation. 2. Improving lung aeration with decreasing air space disease. 3. Otherwise stable chest Marc Nvaarro MD Chest CT 01/07/18 0943 Signed Impressions: Service Date/Time: Sunday, January 07, 2018 10:59 - CONCLUSION: 1. Small right pleural effusion with adjacent compressive atelectasis. 2. Tiny left pleural effusion. 3. 7 mm noncalcified nodule within the left lower lobe laterally which is indeterminate. Followup CT the chest in 6 months would be helpful to confirm stability of this finding. 4. Scattered discoid atelectasis bilaterally. 5. Right axillary fluid collection measuring 6.0 x 3.1 x 4.3 cm consistent with possible seroma if the patient has had surgery in this location. 6. Right axillary lymphadenopathy with the largest lymph node measuring 16 mm. 7. Coronary artery calcifications. Fabian Villegas MD Head CT 01/07/18 0802 Signed Impressions: Service Date/Time: Sunday, January 07, 2018 10:53 - CONCLUSION: 1. No acute intracranial abnormality. 2. Moderate mucosal thickening involving the maxillary and ethmoid sinuses bilaterally. Fabian Villegas MD Abdomen/Pelvis CT 01/07/18 0000 Signed Impressions: Service Date/Time: Sunday, January 07, 2018 10:59 - CONCLUSION: 1. Small right pleural effusion with adjacent compressive atelectasis. 2. 7 mm noncalcified nodule within the left lower lobe which is indeterminate. 3. 4.1 x 2.6 cm lobulated low density lesion within the right lobe of liver which is indeterminate on this unenhanced examination. Outpatient MRI of the abdomen with contrast may be helpful for further characterization of this finding. 4. 4 cm lower pole right renal cyst. 5. Degenerative changes and scoliosis of the thoracolumbar spine. 6. Enlarged prostate. 7. Uncomplicated colonic diverticulosis. 8. Gallbladder sludge. Fabian Villegas MD Objective Remarks General: No acute distress. Heart: Regular rate and rhythm. No murmur. Lungs: Clear to auscultation. Breathing is nonlabored. Abdomen: Soft, nontender, nondistended. Extremities: No lower extremity edema. Psych: Alert, answers questions appropriately. Procedures Respiratory failure with mechanical ventilation and intubation Urinary Catheter: No Vascular Central Line Catheter: No A/P Problem List: (1) Respiratory acidosis ICD Code: E87.2 - Acidosis Status: Acute (2) Severe sepsis ICD Code: A41.9 - Sepsis, unspecified organism; R65.20 - Severe sepsis without septic shock Status: Acute (3) Bilateral pneumonia ICD Code: J18.9 - Pneumonia, unspecified organism Status: Acute (4) Endotracheally intubated ICD Code: Z97.8 - Presence of other specified devices Status: Acute (5) Acute respiratory failure ICD Code: J96.00 - Acute respiratory failure, unspecified whether with hypoxia or hypercapnia (6) Hypokalemia ICD Code: E87.6 - Hypokalemia (7) Hypomagnesemia ICD Code: E83.42 - Hypomagnesemia (8) Pneumonia ICD Code: J18.9 - Pneumonia, unspecified organism (9) Acute kidney injury ICD Code: N17.9 - Acute kidney failure, unspecified (10) Elevated troponin I level ICD Code: R74.8 - Abnormal levels of other serum enzymes Assessment and Plan 01/19/18: No change. Awaiting SNF placement. Change to oral steroids. 1. Acute respiratory failure: Resolved. Likely secondary to pneumonia. Patient extubated 01/08/18. Continue supplemental oxygen. Taper steroids. 2. Pneumonia: Improved. Continue supplemental oxygen, bronchodilators. Continue antibiotics. 3. Acute kidney injury: Resolved. 4. Lymphoma: Chronic. Follow-up as outpatient. 5. Anemia: H&H low, but stable. 6. Hypertension: Continue Lopressor, lisinopril, HCTZ, Hytrin. 7. Coronary artery disease, elevated troponin: Currently asymptomatic. Appreciate cardiology recommendations. Nuclear stress test was nonischemic. Echocardiogram showed ejection fraction 55-60%. 8. Hyperlipidemia: Continue statin. 9. Hypokalemia: Improved. 10. Hypomagnesemia: Improved. 11. GI prophylaxis: Famotidine. 12. DVT prophylaxis: SCDs. Discharge Planning Plan for discharge to SNF versus inpatient rehab when arrangements can be made. Case management assisting with discharge planning. Sb Vasquez MD Jan 19, 2018 11:39
[2018-01-19] MEDS: TERAZOSIN HCL 5 MG CAP PO SCH (21:32)
[2018-01-20] VITALS: BP 130/62; PULSE 80; RESP 18; TEMP 97.6; O2SAT 94
[2018-01-20 04:00] VITALS: BP 156/70; PULSE 69; RESP 18; TEMP 97.7; O2SAT 94
[2018-01-20] MEDS: CHLORHEXIDINE GLUCONATE 2 % 1 PACK (2 CLOTHS) TOP SCH (04:00)
[2018-01-20] MEDS: INSULIN NovoLIN REGULAR SUPPLEMENTAL SCALE SQ SCH ×2 (04:00→09:16)
[2018-01-20 08:00] VITALS: BP 149/70; PULSE 59; RESP 18; TEMP 97.4; O2SAT 95
[2018-01-20] MEDS: LISINOPRIL 20 MG TAB PO SCH (08:04)
[2018-01-20] MEDS: PRAVASTATIN SOD 40 MG TAB PO SCH (08:04)
[2018-01-20] MEDS: METOPROLOL TARTRATE 50 MG TAB PO SCH (08:04)
[2018-01-20] MEDS: HYDROCHLOROTHIAZIDE 25 MG TAB PO SCH (08:04)
[2018-01-20] MEDS: FAMOTIDINE 20 MG TAB PO SCH (08:05)
[2018-01-20] MEDS: DOCUSATE SODIUM 50 MG/SENNA 8.6 MG TAB PO SCH (08:05)
[2018-01-20] MEDS: BUDESONIDE-FORMOTEROL 160/4.5 MCG INHALER INH SCH (08:05)
[2018-01-20] MEDS: CLOPIDOGREL 75 MG TAB PO SCH (08:05)
[2018-01-20] MEDS: guaiFENesin E.R. 600 MG TAB PO SCH (08:05)
[2018-01-20] MEDS: ASPIRIN 81 MG CHEW TAB CHEW SCH (08:05)
[2018-01-20] MEDS ORDERED: predniSONE 20 MG TAB PO SCH (09:00)
[2018-01-20 12:00] VITALS: BP 127/60; PULSE 63; RESP 18; TEMP 97.8; O2SAT 94
[2018-01-20 13:08] VITALS: O2SAT 95
--- NOTE | 2018-01-20 13:21 | HHI.PR ---
Subjective Remarks Follow-up respiratory failure. Patient has no complaints at this time. He is going to be discharged to SNF today. Objective Vitals Vital Signs Date Time Temp Pulse Resp B/P (MAP) Pulse Ox O2 Delivery O2 Flow Rate FiO2 01/20/18 13:08 95 01/20/18 12:00 97.8 63 18 127/60 (82) 94 01/20/18 08:00 97.4 59 18 149/70 (96) 95 01/20/18 07:00 95 Room Air 01/20/18 04:00 97.7 69 18 156/70 (98) 94 01/20/18 00:00 97.6 80 18 130/62 (84) 94 01/19/18 23:07 Room Air 01/19/18 20:00 97.9 83 22 157/60 (92) 97 01/19/18 18:11 98 21 01/19/18 16:17 97.9 68 18 158/71 (100) 98 I/O 01/19/18 01/19/18 01/19/18 01/20/18 01/20/18 01/20/18 07:00 15:00 23:00 07:00 15:00 23:00 Intake Total 240 ml Output Total 650 ml 350 ml Balance -410 ml -350 ml Intake Oral 240 ml Output Urine Total 650 ml 350 ml # Voids 3 # Bowel Movements 1 0 Result Diagram: 01/17/18 1518 01/17/18 1518 Imaging Last Impressions Myocardial Perfusion Scan Nuc Med 01/10/18 0000 Signed Impressions: Service Date/Time: Wednesday, January 10, 2018 10:38 - CONCLUSION: 1. No evidence of stress-induced reversible perfusion abnormality. 2. Fixed hypoperfusion in the anterior inferior [place] 3. Well-maintained lung motion and ejection fraction. RISK CATEGORY: Low (<1%% Annual Mortality Rate) Marc Navarro MD Chest X-Ray 01/09/18 0000 Signed Impressions: Service Date/Time: Tuesday, January 09, 2018 10:43 - CONCLUSION: 1. Status post extubation. 2. Improving lung aeration with decreasing air space disease. 3. Otherwise stable chest Marc Navarro MD Chest CT 01/07/18 0943 Signed Impressions: Service Date/Time: Sunday, January 07, 2018 10:59 - CONCLUSION: 1. Small right pleural effusion with adjacent compressive atelectasis. 2. Tiny left pleural effusion. 3. 7 mm noncalcified nodule within the left lower lobe laterally which is indeterminate. Followup CT the chest in 6 months would be helpful to confirm stability of this finding. 4. Scattered discoid atelectasis bilaterally. 5. Right axillary fluid collection measuring 6.0 x 3.1 x 4.3 cm consistent with possible seroma if the patient has had surgery in this location. 6. Right axillary lymphadenopathy with the largest lymph node measuring 16 mm. 7. Coronary artery calcifications. Fabian Villegas MD Head CT 01/07/18 0802 Signed Impressions: Service Date/Time: Sunday, January 07, 2018 10:53 - CONCLUSION: 1. No acute intracranial abnormality. 2. Moderate mucosal thickening involving the maxillary and ethmoid sinuses bilaterally. Fabian Villegas MD Abdomen/Pelvis CT 01/07/18 0000 Signed Impressions: Service Date/Time: Sunday, January 07, 2018 10:59 - CONCLUSION: 1. Small right pleural effusion with adjacent compressive atelectasis. 2. 7 mm noncalcified nodule within the left lower lobe which is indeterminate. 3. 4.1 x 2.6 cm lobulated low density lesion within the right lobe of liver which is indeterminate on this unenhanced examination. Outpatient MRI of the abdomen with contrast may be helpful for further characterization of this finding. 4. 4 cm lower pole right renal cyst. 5. Degenerative changes and scoliosis of the thoracolumbar spine. 6. Enlarged prostate. 7. Uncomplicated colonic diverticulosis. 8. Gallbladder sludge. Fabian Villegas MD Objective Remarks General: No acute distress. Heart: Regular rate and rhythm. No murmur. Lungs: Clear to auscultation. Breathing is nonlabored. Abdomen: Soft, nontender, nondistended. Extremities: No lower extremity edema. Psych: Alert, answers questions appropriately. Procedures Respiratory failure with mechanical ventilation and intubation Urinary Catheter: No Vascular Central Line Catheter: No A/P Problem List: (1) Respiratory acidosis ICD Code: E87.2 - Acidosis Status: Acute (2) Severe sepsis ICD Code: A41.9 - Sepsis, unspecified organism; R65.20 - Severe sepsis without septic shock Status: Acute (3) Bilateral pneumonia ICD Code: J18.9 - Pneumonia, unspecified organism Status: Acute (4) Endotracheally intubated ICD Code: Z97.8 - Presence of other specified devices Status: Acute (5) Acute respiratory failure ICD Code: J96.00 - Acute respiratory failure, unspecified whether with hypoxia or hypercapnia (6) Hypokalemia ICD Code: E87.6 - Hypokalemia (7) Hypomagnesemia ICD Code: E83.42 - Hypomagnesemia (8) Pneumonia ICD Code: J18.9 - Pneumonia, unspecified organism (9) Acute kidney injury ICD Code: N17.9 - Acute kidney failure, unspecified (10) Elevated troponin I level ICD Code: R74.8 - Abnormal levels of other serum enzymes Assessment and Plan 01/20/18: No change. Going to SNF today. 1. Acute respiratory failure: Resolved. Likely secondary to pneumonia. Patient extubated 01/08/18. Continue supplemental oxygen. Taper steroids. 2. Pneumonia: Improved. Continue supplemental oxygen, bronchodilators. Continue antibiotics. 3. Acute kidney injury: Resolved. 4. Lymphoma: Chronic. Follow-up as outpatient. 5. Anemia: H&H low, but stable. 6. Hypertension: Continue Lopressor, lisinopril, HCTZ, Hytrin. 7. Coronary artery disease, elevated troponin: Currently asymptomatic. Appreciate cardiology recommendations. Nuclear stress test was nonischemic. Echocardiogram showed ejection fraction 55-60%. 8. Hyperlipidemia: Continue statin. 9. Hypokalemia: Improved. 10. Hypomagnesemia: Improved. 11. GI prophylaxis: Famotidine. 12. DVT prophylaxis: SCDs. Discharge Planning Discharge to SNF today in stable condition. Heart healthy diet. Activity as tolerated with assistance. Sb Vasquez MD Jan 20, 2018 13:21
== END 2018-01-20 13:51 | DRG 871 ==
LOC: NEPC 06:31 → NEDA 09:45 → HIMN 11:15 → N05B 01-14 01:30
PROVIDERS: ADMIT Family Medicine; ATTEND Family Medicine
PROC: 0BH17EZ Insertion of Endotracheal Airway into Trachea, Via Natural or Artificial Opening (ICD-10-PCS; principal; 2018-01-07)
PROC: 5A1945Z Respiratory Ventilation, 24-96 Consecutive Hours (ICD-10-PCS; 2018-01-07)
DX: A41.9 Sepsis, unspecified organism (principal); J96.01 Acute respiratory failure with hypoxia; J18.9 Pneumonia, unspecified organism; N17.9 Acute kidney failure, unspecified; J96.02 Acute respiratory failure with hypercapnia; J44.0 Chronic obstructive pulmonary disease with (acute) lower respiratory infection; E72.20 Disorder of urea cycle metabolism, unspecified; C84.44 Peripheral T-cell lymphoma, not elsewhere classified, lymph nodes of axilla and upper limb; N28.1 Cyst of kidney, acquired; E87.2 Acidosis; J98.11 Atelectasis; D64.9 Anemia, unspecified; E83.42 Hypomagnesemia; Y95 Nosocomial condition; E87.6 Hypokalemia; K57.30 Diverticulosis of large intestine without perforation or abscess without bleeding; R65.20 Severe sepsis without septic shock; N40.0 Benign prostatic hyperplasia without lower urinary tract symptoms; I25.10 Atherosclerotic heart disease of native coronary artery without angina pectoris; I10 Essential (primary) hypertension; E78.5 Hyperlipidemia, unspecified; Z80.7 Family history of other malignant neoplasms of lymphoid, hematopoietic and related tissues; Z92.3 Personal history of irradiation; Z92.21 Personal history of antineoplastic chemotherapy; Z87.891 Personal history of nicotine dependence; Z95.5 Presence of coronary angioplasty implant and graft
CPT/HCPCS: 31500; 36600; 51702; 70450; 71045; 71250; 74176; 76937; 78452; 80048; 80053; 81001; 82140; 82805; 82948; 83036; 83605; 83735; 83880; 84100; 84132; 84145; 84439; 84443; 84484; 85007; 85025; 85027; 85610; 87040; 87070; 87086; 87205; 87449; 87641; 93005; 93017; 93306; 94002; 94003; 94150; 94640; 94664; 96374; A9502; J0330; J0360; J0456; J1642; J2543; J2785; J2920; J3370; J3480; J7030; J7040; J7042; J7050; J7070; J7512

== ENCOUNTER 2018-02-18 15:18 | Inpatient (IN) | payer OTHER, MEDICARE ==
[2018-02-18 16:17] LABS: BASOPHIL % 0.8 % (0.0-2.0); EOSINOPHIL # 0.8 TH/MM3 (0-0.4); EOSINOPHIL % 13.7 % (0.0-4.0); HEMATOCRIT 26.3 % (39.0-51.0); HEMO FLAGS DIFF FINAL; HEMOGLOBIN 8.6 GM/DL (13.0-17.0); LYMPH % 4.2 % (9.0-44.0); LYMPHOCYTE # 0.2 TH/MM3 (1.0-4.8); MEAN CELL VOLUME 95.3 FL (80.0-100.0); MEAN CORPUSCULAR HEMOGLOBIN 31.1 PG (27.0-34.0); MEAN CORPUSCULAR HGB CONC 32.7 % (32.0-36.0); MEAN PLATELET VOLUME 8.9 FL (7.0-11.0); MONO % 11.7 % (0.0-8.0); MONOCYTE # 0.7 TH/MM3 (0-0.9); NEUT % 69.6 % (16.0-70.0); PLATELET COUNT 212 TH/MM3 (150-450); RED BLOOD COUNT 2.77 MIL/MM3 (4.50-5.90); RED CELL DISTRIBUTION WIDTH 20.7 % (11.6-17.2); WHITE BLOOD COUNT 5.7 TH/MM3 (4.0-11.0)
[2018-02-18 16:30] LABS: APTT (PATIENT) 31.1 SEC (24.3-30.1); INTERNATIONAL NORMALIZED RATIO 1.4 RATIO; PROTHROMBIN TIME - PATIENT 13.7 SEC (9.8-11.6)
[2018-02-18 16:31] LABS: ALBUMIN 1.7 GM/DL (3.4-5.0); ALT (GPT) 16 U/L (12-78); ANION GAP 7 MEQ/L (5-15); AST (GOT) 15 U/L (15-37); BICARBONATE 31.4 MEQ/L (21.0-32.0); BLOOD UREA NITROGEN 40 MG/DL (7-18); CALCIUM 7.6 MG/DL (8.5-10.1); CHLORIDE 106 MEQ/L (98-107); CREATININE 3.55 MG/DL (0.60-1.30); GLOMERULAR FILTRATION RATE 17 ML/MIN (>89); GLUCOSE,RANDOM 128 MG/DL (74-106); MAGNESIUM 2.3 MG/DL (1.5-2.5); PHOSPHORUS 2.7 MG/DL (2.5-4.9); POTASSIUM 3.5 MEQ/L (3.5-5.1); SODIUM (NA) 144 MEQ/L (136-145)
[2018-02-18 16:33] LABS: ALKALINE PHOSPHATASE 119 U/L (45-117); TOTAL BILIRUBIN ADULT 0.3 MG/DL (0.2-1.0); TOTAL PROTEIN 3.9 GM/DL (6.4-8.2)
[2018-02-18] MEDS ORDERED: SODIUM CHLORIDE 0.9% FLUSH 10 ML FLUSH IVF (16:45)
[2018-02-18] MEDS: RESP: ALBUTEROL 2.5 MG/IPRATROPIUM 0.5 MG NEB (SCH) NEB ×2 (16:47→23:42)
[2018-02-18] MEDS: AZITHROMYCIN INJ 500 MG in SODIUM CHLOR 0.9% 250 ML INJ 250 ML IV (17:10)
[2018-02-18] MEDS: PIPERACIL-TAZO 4.5 GM PREMIX 100 ML IV (17:10)
[2018-02-18 17:32] LABS: B-TYPE NATRIURETIC PEPTIDE 195 PG/ML (0-100)
[2018-02-18 17:53] LABS: AMORPHOUS SEDIMENT, URINE RARE; BILIRUBIN, URINE NEG (NEG); BLOOD, URINE NEG (NEG); GLUCOSE,URINE NEG (NEG); KETONE, URINE NEG (NEG); NITRITE,URINE NEG (NEG); SQUAMOUS EPITHELIAL CELL URINE <1 /hpf (0-5); URINE COLOR LIGHT-YELLOW (YELLW/STRAW); URINE LEUKOCYTE ESTERASE NEG (NEG)
[2018-02-18 17:55] LABS: COMMENT (UR) CATH-CULT NOT IND; CULTURE IF INDICATED CATH CULTURE NOT IND
[2018-02-18] MEDS: SODIUM CHLORID 0.9% 500 ML INJ 500 ML IV (18:36)
[2018-02-18 21:09] LABS: BLOOD GAS BASE EXCESS 4.9 mmol/L (-2-2); BLOOD GAS CARBOXYHEMOGLOBIN 1.5 % (0-4); BLOOD GAS HCO3 30 mmol/L (22-26); BLOOD GAS METHEMOGLOBIN 0.6 % (0-2); BLOOD GAS O2 HGB SATURATION 91 % (90-100); BLOOD GAS OXYGEN CONTENT 10.9 Vol % (12.0-20.0); BLOOD GAS PCO2 51 mmHg (38-42); BLOOD GAS PO2 68 mmHG (61-120); BLOOD GAS TOTAL HGB 8.4 G/DL (12.0-16.0); TEMP CORR TO 98.6
[2018-02-18 21:10] LABS: CRITICAL VALUE YES; OXYGEN DEVICE BIPAP
[2018-02-18 21:11] LABS: DRAW SITE RT RADIAL; FIO2 30 %; NUMBER OF ARTERIAL PUNCTURES 1; STAT YES; VENT SETTINGS IPAP 20/EPAP 8
[2018-02-18] MEDS: ACETAMINOPHEN 1000 MG/100 ML 100 ML IV (21:20)
[2018-02-18] MEDS ORDERED: FAMOTIDINE 20 MG/2 ML VIAL IV PUSH (21:30)
[2018-02-18] MEDS: NURSING INFORMATION XX (21:45)
[2018-02-18] MEDS ORDERED: RESP: ALBUTEROL 2.5 MG/IPRATROPIUM 0.5 MG NEB (PRN) INH (21:45)
[2018-02-18] MEDS ORDERED: ONDANSETRON HCL 4 MG/2 ML VIAL IV PUSH (21:45)
[2018-02-18] MEDS ORDERED: RESP: ALBUTEROL 2.5 MG/3 ML NEB (PRN) INH (21:45)
[2018-02-18] MEDS ORDERED: CHLORHEXIDINE GLUCONATE 2 % 1 PACK (2 CLOTHS) TOP (21:45)
[2018-02-18] MEDS ORDERED: BISACODYL 10 MG SUPP RECTAL (21:45)
[2018-02-18] MEDS ORDERED: MAGNESIUM HYDROXIDE SUSP 30 ML CUP PO (21:45)
[2018-02-18 21:54] LABS: CREATINE KINASE 26 U/L (39-308)
[2018-02-18] MEDS ORDERED: TERBUTALINE INJ 1 MG/ML AMP SQ (22:00)
[2018-02-18] MEDS ORDERED: NOREPINEPHRINE INJ 4 MG in SODIUM CHLOR 0.9% 250 ML INJ 246 ML IV (22:00)
[2018-02-18] MEDS: ETOMIDATE 20 MG/10 ML VIAL IV PUSH (22:00)
[2018-02-18] MEDS: fentaNYL DRIP 250 ML IV (22:00)
[2018-02-18] MEDS ORDERED: LINEZOLID 600 MG PREMIX 300 ML IV (22:00)
[2018-02-18] MEDS: ROCURONIUM INJ 50 MG/5 ML VIAL IV (22:00)
[2018-02-18] MEDS: SODIUM CHLOR 0.9% 1000 ML INJ 1,000 ML IV ×3 (22:03→23:17)
[2018-02-18] MEDS: MICAFUNGIN INJ 150 MG in SODIUM CHLORIDE 0.9% INJ 100 ML IV (23:18)
[2018-02-18] MEDS: CEFTOLOZANE-TAZOBACTAM INJ 375 MG in SODIUM CHLORIDE 0.9% INJ 100 ML IV (23:18)
[2018-02-18 23:35] LABS: BLOOD GAS BASE EXCESS 3.1 mmol/L (-2-2); BLOOD GAS CARBOXYHEMOGLOBIN 1.3 % (0-4); BLOOD GAS HCO3 27 mmol/L (22-26); BLOOD GAS METHEMOGLOBIN 1.1 % (0-2); BLOOD GAS O2 HGB SATURATION 87 % (90-100); BLOOD GAS OXYGEN CONTENT 10.9 Vol % (12.0-20.0); BLOOD GAS PCO2 41 mmHg (38-42); BLOOD GAS PO2 56 mmHg (61-120); BLOOD GAS TOTAL HGB 8.9 G/DL (12.0-16.0); CRITICAL VALUE YES; OXYGEN DEVICE VENTILATOR; TEMP CORR TO 98.6
[2018-02-18 23:36] LABS: DRAW SITE RT RADIAL; FIO2 50 %; NUMBER OF ARTERIAL PUNCTURES 1; STAT NO; ULNAR PULSE Y; VENT SETTINGS SEE COMMENTS
[2018-02-18] MEDS: metroNIDAZOLE 500 MG INJ 100 ML IV (23:44)
[2018-02-18] MEDS: HYDROCORTISONE SOD SUCCINATE 100 MG VIAL IV PUSH (23:44)
[2018-02-18] MEDS: VANCOMYCIN INJ 800 MG in SODIUM CHLOR 0.9% 250 ML INJ 250 ML IV (23:45)
[2018-02-18] MEDS: diphenhydrAMINE HCL 50 MG/ML VIAL IV PUSH (23:45)
[2018-02-18 23:58] LABS: AMMONIA 32 MCMOL/L (11-32)
[2018-02-19 00:01] LABS: LACTIC ACID SEPSIS PROTOCOL 1.4 mmol/L (0.4-2.0)
[2018-02-19] MEDS: RESP: ALBUTEROL 2.5 MG/IPRATROPIUM 0.5 MG NEB (SCH) NEB ×5 (03:13→19:41)
[2018-02-19 03:49] LABS: AUTOMATED NEUTROPHIL # 12.8 TH/MM3 (1.8-7.7); BASOPHIL % 0.2 % (0.0-2.0); EOSINOPHIL # 0.3 TH/MM3 (0-0.4); EOSINOPHIL % 2.6 % (0.0-4.0); HEMATOCRIT 25.5 % (39.0-51.0); HEMO FLAGS DIFF FINAL; HEMOGLOBIN 8.2 GM/DL (13.0-17.0); LYMPH % 0.6 % (9.0-44.0); LYMPHOCYTE # 0.1 TH/MM3 (1.0-4.8); MEAN CELL VOLUME 95.6 FL (80.0-100.0); MEAN CORPUSCULAR HEMOGLOBIN 30.7 PG (27.0-34.0); MEAN CORPUSCULAR HGB CONC 32.2 % (32.0-36.0); MEAN PLATELET VOLUME 8.4 FL (7.0-11.0); MONOCYTE # 0.3 TH/MM3 (0-0.9); NEUT % 94.6 % (16.0-70.0); PLATELET COUNT 201 TH/MM3 (150-450); RED BLOOD COUNT 2.67 MIL/MM3 (4.50-5.90); RED CELL DISTRIBUTION WIDTH 20.3 % (11.6-17.2); WHITE BLOOD COUNT 13.5 TH/MM3 (4.0-11.0)
[2018-02-19] MEDS: CHLORHEXIDINE GLUCONATE 2 % 1 PACK (2 CLOTHS) TOP (04:00)
[2018-02-19 04:14] LABS: LACTIC ACID 1.4 mmol/L (0.4-2.0); RANDOM VANCOMYCIN 14.3 COMMENT
[2018-02-19 04:18] LABS: ALBUMIN 1.4 GM/DL (3.4-5.0); ALKALINE PHOSPHATASE 97 U/L (45-117); ALT (GPT) 14 U/L (12-78); ANION GAP 7 MEQ/L (5-15); AST (GOT) 16 U/L (15-37); BICARBONATE 26.9 MEQ/L (21.0-32.0); BLOOD UREA NITROGEN 41 MG/DL (7-18); CALCIUM 6.6 MG/DL (8.5-10.1); CALCIUM-PROTEIN CORRECTED 8.7 MG/DL (8.5-10.1); CHLORIDE 112 MEQ/L (98-107); CREATININE 3.56 MG/DL (0.60-1.30); GLOMERULAR FILTRATION RATE 17 ML/MIN (>89); GLUCOSE,RANDOM 114 MG/DL (74-106); MAGNESIUM 2.1 MG/DL (1.5-2.5); PHOSPHORUS 2.2 MG/DL (2.5-4.9); POTASSIUM 3.4 MEQ/L (3.5-5.1); SODIUM (NA) 146 MEQ/L (136-145); TOTAL BILIRUBIN ADULT 0.4 MG/DL (0.2-1.0); TOTAL PROTEIN 3.3 GM/DL (6.4-8.2)
[2018-02-19] MEDS: metroNIDAZOLE 500 MG INJ 100 ML IV ×4 (04:53→21:03)
[2018-02-19] MEDS: CEFTOLOZANE-TAZOBACTAM INJ 375 MG in SODIUM CHLORIDE 0.9% INJ 100 ML IV ×3 (06:43→21:05)
[2018-02-19] MEDS: HYDROCORTISONE SOD SUCCINATE 100 MG VIAL IV PUSH ×4 (06:44→23:45)
[2018-02-19] MEDS ORDERED: ACETAMINOPHEN 650 MG/20.3 ML UDC PO (06:45)
[2018-02-19 06:58] LABS: BLOOD GAS BASE EXCESS -0.6 mmol/L (-2-2); BLOOD GAS CARBOXYHEMOGLOBIN 0.8 % (0-4); BLOOD GAS HCO3 25 mmol/L (22-26); BLOOD GAS METHEMOGLOBIN 1.3 % (0-2); BLOOD GAS O2 HGB SATURATION 88 % (90-100); BLOOD GAS PCO2 48 mmHg (38-42); BLOOD GAS PO2 62 mmHg (61-120); BLOOD GAS TOTAL HGB 8.9 G/DL (12.0-16.0); TEMP CORR TO 98.6
[2018-02-19 06:59] LABS: CRITICAL VALUE YES; OXYGEN DEVICE VENTILATOR
[2018-02-19 07:00] LABS: DRAW SITE RT RADIAL; FIO2 60 %; NUMBER OF ARTERIAL PUNCTURES 1; STAT NO; ULNAR PULSE PRESENT; VENT SETTINGS SEE COMMENTS
[2018-02-19] MEDS: LACTATED RINGER'S 1000 ML INJ 1,000 ML IV ×3 (07:03→21:01)
[2018-02-19] MEDS ORDERED: DEXTROSE 50% IN WATER 50 ML VIAL(D50) IV PUSH (07:15)
[2018-02-19] MEDS ORDERED: GLUCAGON 1 MG/ML VIAL OTHER (07:15)
[2018-02-19] MEDS: POTASSIUM PHOSPHATE INJ 15 MMOL in SODIUM CHLORIDE 0.9% INJ 150 ML IV (08:29)
[2018-02-19] MEDS: HEPARIN SODIUM - SQ 10,000 UNITS/ML VIAL SQ ×2 (08:34→21:02)
[2018-02-19] MEDS: ASPIRIN 81 MG CHEW TAB CHEW (08:34)
[2018-02-19] MEDS: ALLOPURINOL 100 MG TAB PO (08:34)
[2018-02-19] MEDS: LANSOPRAZOLE SOLUTAB 30 MG TAB NG (08:34)
[2018-02-19] MEDS: ARTIFICIAL TEARS OPTH SOLN 15 ML BTL EACH EYE ×3 (08:34→23:45)
[2018-02-19] MEDS: DOCUSATE SODIUM 50 MG/SENNA 8.6 MG TAB PO ×2 (08:34→21:02)
[2018-02-19] MEDS: CLOPIDOGREL 75 MG TAB PO (08:34)
[2018-02-19] MEDS: CHLORHEXIDINE 0.12% (ORAL KIT) 15 ML CUP MT ×2 (08:35→21:01)
[2018-02-19] MEDS: SODIUM CHLORIDE 0.9% FLUSH 10 ML FLUSH IV FLUSH ×2 (08:35→21:01)
[2018-02-19] MEDS ORDERED: FAMOTIDINE 20 MG/2 ML VIAL IV PUSH (09:00)
[2018-02-19 09:34] LABS: MRSA PCR SURVEILLANCE MRSA NOT DETECTED (NOT DETECT)
[2018-02-19] MEDS: fentaNYL DRIP 250 ML IV ×2 (10:24→23:03)
[2018-02-19 10:36] LABS: AMMONIA 24 MCMOL/L (11-32)
[2018-02-19 10:37] LABS: URIC ACID 5.1 MG/DL (2.6-7.2)
[2018-02-19 10:46] LABS: ANION GAP 9 MEQ/L (5-15); BICARBONATE 24.7 MEQ/L (21.0-32.0); BLOOD UREA NITROGEN 44 MG/DL (7-18); CALCIUM 6.6 MG/DL (8.5-10.1); CHLORIDE 111 MEQ/L (98-107); CREATINE KINASE 124 U/L (39-308); CREATININE 3.76 MG/DL (0.60-1.30); GLOMERULAR FILTRATION RATE 16 ML/MIN (>89); GLUCOSE,RANDOM 162 MG/DL (74-106); POTASSIUM 3.6 MEQ/L (3.5-5.1); SODIUM (NA) 145 MEQ/L (136-145); TROPONIN I 0.02 NG/ML (0.02-0.05)
[2018-02-19 10:59] LABS: CALCIUM-PROTEIN CORRECTED 8.5 MG/DL (8.5-10.1); TOTAL PROTEIN 3.6 GM/DL (6.4-8.2)
[2018-02-19] MEDS: NAPHAZOLINE HCL 0.012% OPHT SOLN 15 ML BOTTLE LEFT EYE (14:00)
[2018-02-19] MEDS: ALBUMIN 5% INJ 500 ML IV (15:08)
[2018-02-19] MEDS: NAPHAZOLINE HCL 0.012% OPHT SOLN 15 ML BOTTLE RIGHT EYE (15:08)
[2018-02-19] MEDS: INSULIN NovoLIN REGULAR SUPPLEMENTAL SCALE SQ ×3 (15:09→23:45)
[2018-02-19] MEDS: SODIUM CHLOR 0.45% 1000 ML INJ 1,000 ML IV (15:25)
[2018-02-19 18:27] LABS: ANION GAP 9 MEQ/L (5-15); BICARBONATE 22.9 MEQ/L (21.0-32.0); BLOOD UREA NITROGEN 46 MG/DL (7-18); CALCIUM 6.4 MG/DL (8.5-10.1); CHLORIDE 111 MEQ/L (98-107); CREATININE 3.78 MG/DL (0.60-1.30); GLOMERULAR FILTRATION RATE 16 ML/MIN (>89); GLUCOSE,RANDOM 121 MG/DL (74-106); POTASSIUM 3.6 MEQ/L (3.5-5.1); SODIUM (NA) 143 MEQ/L (136-145)
[2018-02-19 18:41] LABS: CALCIUM-PROTEIN CORRECTED 8.3 MG/DL (8.5-10.1); TOTAL PROTEIN 3.6 GM/DL (6.4-8.2)
[2018-02-19] MEDS: VANCOMYCIN INJ 1,000 MG in SODIUM CHLOR 0.9% 250 ML INJ 250 ML IV (19:00)
[2018-02-19] MEDS: MICAFUNGIN INJ 150 MG in SODIUM CHLORIDE 0.9% INJ 100 ML IV (23:44)
[2018-02-20] MEDS: RESP: ALBUTEROL 2.5 MG/IPRATROPIUM 0.5 MG NEB (SCH) NEB ×7 (00:32→23:54)
[2018-02-20] MEDS: ALBUMIN 5% INJ 500 ML IV (00:58)
[2018-02-20] MEDS: metroNIDAZOLE 500 MG INJ 100 ML IV ×4 (04:00→21:33)
[2018-02-20] MEDS: CHLORHEXIDINE GLUCONATE 2 % 1 PACK (2 CLOTHS) TOP (04:00)
[2018-02-20 05:36] LABS: HEMATOCRIT 22.5 % (39.0-51.0); HEMOGLOBIN 7.4 GM/DL (13.0-17.0); MEAN CELL VOLUME 94.9 FL (80.0-100.0); MEAN CORPUSCULAR HEMOGLOBIN 31.1 PG (27.0-34.0); MEAN CORPUSCULAR HGB CONC 32.8 % (32.0-36.0); MEAN PLATELET VOLUME 8.6 FL (7.0-11.0); PLATELET COUNT 178 TH/MM3 (150-450); RED BLOOD COUNT 2.37 MIL/MM3 (4.50-5.90); RED CELL DISTRIBUTION WIDTH 20.7 % (11.6-17.2); REVIEW FLAG FINAL; WHITE BLOOD COUNT 8.2 TH/MM3 (4.0-11.0)
[2018-02-20 05:44] LABS: APTT (PATIENT) 52.5 SEC (24.3-30.1); FIBRINOGEN 109 mg/dL (227-377); INTERNATIONAL NORMALIZED RATIO 1.6 RATIO; PROTHROMBIN TIME - PATIENT 15.9 SEC (9.8-11.6)
[2018-02-20 05:55] LABS: LACTIC ACID 1.6 mmol/L (0.4-2.0)
[2018-02-20] MEDS: INSULIN NovoLIN REGULAR SUPPLEMENTAL SCALE SQ ×4 (06:00→22:47)
[2018-02-20 06:06] LABS: ALBUMIN 2.1 GM/DL (3.4-5.0); ALT (GPT) 15 U/L (12-78); ANION GAP 9 MEQ/L (5-15); AST (GOT) 17 U/L (15-37); BICARBONATE 24.2 MEQ/L (21.0-32.0); BLOOD UREA NITROGEN 48 MG/DL (7-18); CALCIUM 6.2 MG/DL (8.5-10.1); CHLORIDE 111 MEQ/L (98-107); CREATININE 3.78 MG/DL (0.60-1.30); GLOMERULAR FILTRATION RATE 16 ML/MIN (>89); GLUCOSE,RANDOM 104 MG/DL (74-106); PHOSPHORUS 3.3 MG/DL (2.5-4.9); POTASSIUM 3.5 MEQ/L (3.5-5.1); SODIUM (NA) 144 MEQ/L (136-145)
[2018-02-20 06:08] LABS: ALKALINE PHOSPHATASE 80 U/L (45-117); CALCIUM-PROTEIN CORRECTED 7.9 MG/DL (8.5-10.1); TOTAL BILIRUBIN ADULT 0.5 MG/DL (0.2-1.0); TOTAL PROTEIN 3.8 GM/DL (6.4-8.2)
[2018-02-20] MEDS: CEFTOLOZANE-TAZOBACTAM INJ 375 MG in SODIUM CHLORIDE 0.9% INJ 100 ML IV ×3 (06:08→21:34)
[2018-02-20] MEDS: HYDROCORTISONE SOD SUCCINATE 100 MG VIAL IV PUSH ×4 (06:08→22:49)
[2018-02-20] MEDS: POTASSIUM CHLORIDE 20 MEQ PWD PACKET PO (07:15)
[2018-02-20] MEDS: LACTATED RINGER'S 1000 ML INJ 1,000 ML IV ×3 (07:32→22:49)
[2018-02-20] MEDS: ARTIFICIAL TEARS OPTH SOLN 15 ML BTL EACH EYE ×3 (08:09→22:49)
[2018-02-20] MEDS: CHLORHEXIDINE 0.12% (ORAL KIT) 15 ML CUP MT ×2 (08:10→19:16)
[2018-02-20] MEDS: LANSOPRAZOLE SOLUTAB 30 MG TAB NG (08:11)
[2018-02-20] MEDS: ASPIRIN 81 MG CHEW TAB CHEW (08:11)
[2018-02-20] MEDS: SODIUM CHLORIDE 0.9% FLUSH 10 ML FLUSH IV FLUSH ×3 (08:11→21:33)
[2018-02-20] MEDS: CALCIUM GLUCONATE INJ 1 GM in SODIUM CHLORIDE 0.9% INJ 100 ML IV (08:11)
[2018-02-20] MEDS: DOCUSATE SODIUM 50 MG/SENNA 8.6 MG TAB PO ×2 (08:12→21:33)
[2018-02-20] MEDS: FERROUS SULFATE 325 MG (65 MG ELEMENTAL IRON) TAB PO ×2 (08:12→17:42)
[2018-02-20] MEDS: CLOPIDOGREL 75 MG TAB PO (08:12)
[2018-02-20] MEDS: HEPARIN SODIUM - SQ 10,000 UNITS/ML VIAL SQ ×2 (08:12→21:33)
[2018-02-20] MEDS: ALLOPURINOL 100 MG TAB PO (08:12)
[2018-02-20] MEDS: fentaNYL DRIP 250 ML IV ×2 (10:54→22:49)
[2018-02-20] MEDS ORDERED: Vancomycin Consult Pharmacy 1 EA OTHER (13:45)
[2018-02-20] MEDS: TERAZOSIN HCL 5 MG CAP PO (21:33)
[2018-02-20] MEDS: MICAFUNGIN INJ 150 MG in SODIUM CHLORIDE 0.9% INJ 100 ML IV (21:34)
[2018-02-21] MEDS: CHLORHEXIDINE GLUCONATE 2 % 1 PACK (2 CLOTHS) TOP (03:38)
[2018-02-21] MEDS: RESP: ALBUTEROL 2.5 MG/IPRATROPIUM 0.5 MG NEB (SCH) NEB ×6 (04:17→23:48)
[2018-02-21] MEDS: INSULIN NovoLIN REGULAR SUPPLEMENTAL SCALE SQ ×3 (04:43→18:07)
[2018-02-21] MEDS: metroNIDAZOLE 500 MG INJ 100 ML IV ×4 (05:07→21:13)
[2018-02-21] MEDS: CEFTOLOZANE-TAZOBACTAM INJ 375 MG in SODIUM CHLORIDE 0.9% INJ 100 ML IV ×3 (05:07→21:12)
[2018-02-21] MEDS: ARTIFICIAL TEARS OPTH SOLN 15 ML BTL EACH EYE ×3 (05:08→21:13)
[2018-02-21] MEDS: HYDROCORTISONE SOD SUCCINATE 100 MG VIAL IV PUSH ×3 (05:08→18:07)
[2018-02-21] MEDS: LACTATED RINGER'S 1000 ML INJ 1,000 ML IV ×3 (05:12→19:40)
[2018-02-21 07:09] LABS: HEMATOCRIT 23.3 % (39.0-51.0); HEMOGLOBIN 7.7 GM/DL (13.0-17.0); MEAN CELL VOLUME 93.9 FL (80.0-100.0); MEAN CORPUSCULAR HEMOGLOBIN 30.9 PG (27.0-34.0); MEAN CORPUSCULAR HGB CONC 32.9 % (32.0-36.0); MEAN PLATELET VOLUME 9.2 FL (7.0-11.0); PLATELET COUNT 216 TH/MM3 (150-450); RED BLOOD COUNT 2.49 MIL/MM3 (4.50-5.90); RED CELL DISTRIBUTION WIDTH 20.4 % (11.6-17.2); WHITE BLOOD COUNT 11.1 TH/MM3 (4.0-11.0)
[2018-02-21 07:11] LABS: HEMO FLAGS AUTO DIFF
[2018-02-21 07:17] LABS: ALBUMIN 1.9 GM/DL (3.4-5.0); ALKALINE PHOSPHATASE 119 U/L (45-117); ALT (GPT) 18 U/L (12-78); ANION GAP 9 MEQ/L (5-15); AST (GOT) 14 U/L (15-37); BICARBONATE 23.1 MEQ/L (21.0-32.0); BLOOD UREA NITROGEN 54 MG/DL (7-18); CALCIUM-PROTEIN CORRECTED 8.9 MG/DL (8.5-10.1); CHLORIDE 113 MEQ/L (98-107); CREATININE 4.05 MG/DL (0.60-1.30); GLOMERULAR FILTRATION RATE 14 ML/MIN (>89); GLUCOSE,RANDOM 152 MG/DL (74-106); MAGNESIUM 2.1 MG/DL (1.5-2.5); PHOSPHORUS 2.9 MG/DL (2.5-4.9); POTASSIUM 3.7 MEQ/L (3.5-5.1); RANDOM VANCOMYCIN 15.1 COMMENT; SODIUM (NA) 145 MEQ/L (136-145); TOTAL BILIRUBIN ADULT 0.3 MG/DL (0.2-1.0); TOTAL PROTEIN 3.8 GM/DL (6.4-8.2)
[2018-02-21] MEDS: VANCOMYCIN 1,500 MG/NS 500 ML IV (08:49)
[2018-02-21] MEDS: ASPIRIN 81 MG CHEW TAB CHEW (08:49)
[2018-02-21] MEDS: SODIUM CHLORIDE 0.9% FLUSH 10 ML FLUSH IV FLUSH ×3 (08:49→21:14)
[2018-02-21] MEDS: CLOPIDOGREL 75 MG TAB PO (08:50)
[2018-02-21] MEDS: LANSOPRAZOLE SOLUTAB 30 MG TAB NG (08:50)
[2018-02-21] MEDS: FERROUS SULFATE 325 MG (65 MG ELEMENTAL IRON) TAB PO ×2 (08:50→18:07)
[2018-02-21] MEDS: DOCUSATE SODIUM 50 MG/SENNA 8.6 MG TAB PO ×2 (08:50→21:13)
[2018-02-21] MEDS: ALLOPURINOL 100 MG TAB PO (08:50)
[2018-02-21] MEDS: CHLORHEXIDINE 0.12% (ORAL KIT) 15 ML CUP MT ×2 (08:53→19:40)
[2018-02-21] MEDS: HEPARIN SODIUM - SQ 10,000 UNITS/ML VIAL SQ ×2 (08:53→21:13)
[2018-02-21] MEDS: fentaNYL DRIP 250 ML IV ×2 (08:53→21:11)
[2018-02-21 09:05] LABS: BANDS 6 % (0-6); LYMPHOCYTES 1 % (9-44); MONOCYTES 4 % (0-8); NEUTROPHIL # MANUAL DIFF 10.5 TH/MM3 (1.8-7.7); POLYS (SEG NEUTROPHILS) 89 % (16-70); WBC DIFF SAMPLE 100
[2018-02-21 09:06] LABS: CRENATED RBCS 1+ (NORMAL); KERATOCYTES OCC (NORMAL); OVALOCYTES 1+ (NORMAL); PLATELET ESTIMATE SMEAR NORMAL (NORMAL); PLATELET MORPHOLOGY NORMAL (NORMAL); SCAN/DIFF FINAL DIFF MANUAL; TEARDROP RBCS 1+ (NORMAL)
[2018-02-21 11:39] LABS: SODIUM,RANDOM URINE 9 MEQ/L
[2018-02-21 11:39] LABS: CREATININE, RANDOM URINE 98.4 MG/DL
[2018-02-21] MEDS: LACTULOSE SYRUP 20 GM/30 ML CUP PO (12:02)
[2018-02-21] MEDS: SENNOSIDES 8.6 MG TAB PO (12:03)
[2018-02-21 12:15] LABS: URINE FOR EOSINOPHILS NONE SEEN /HPF (NONE SEEN)
[2018-02-21] MEDS: PROPOFOL 1000 MG/100 ML INJ 100 ML IV (13:59)
[2018-02-21] MEDS: MICAFUNGIN INJ 150 MG in SODIUM CHLORIDE 0.9% INJ 100 ML IV (21:13)
[2018-02-21] MEDS: TERAZOSIN HCL 5 MG CAP PO (21:14)
[2018-02-22] MEDS: LACTATED RINGER'S 1000 ML INJ 1,000 ML IV ×3 (00:45→18:00)
[2018-02-22] MEDS: RESP: ALBUTEROL 2.5 MG/IPRATROPIUM 0.5 MG NEB (SCH) NEB ×6 (03:53→23:23)
[2018-02-22] MEDS: CHLORHEXIDINE GLUCONATE 2 % 1 PACK (2 CLOTHS) TOP ×2 (04:00→23:13)
[2018-02-22] MEDS: metroNIDAZOLE 500 MG INJ 100 ML IV ×2 (04:00→09:00)
[2018-02-22] MEDS: HYDROCORTISONE SOD SUCCINATE 100 MG VIAL IV PUSH ×5 (05:03→23:35)
[2018-02-22] MEDS: INSULIN NovoLIN REGULAR SUPPLEMENTAL SCALE SQ ×5 (05:03→23:13)
[2018-02-22] MEDS: fentaNYL DRIP 250 ML IV (06:08)
[2018-02-22] MEDS: CEFTOLOZANE-TAZOBACTAM INJ 375 MG in SODIUM CHLORIDE 0.9% INJ 100 ML IV ×2 (06:08→13:52)
[2018-02-22 06:28] LABS: AUTOMATED NEUTROPHIL # 8.9 TH/MM3 (1.8-7.7); BASOPHIL % 0.2 % (0.0-2.0); EOSINOPHIL # 0.1 TH/MM3 (0-0.4); EOSINOPHIL % 0.6 % (0.0-4.0); HEMATOCRIT 23.3 % (39.0-51.0); HEMO FLAGS DIFF FINAL; LYMPH % 1.5 % (9.0-44.0); LYMPHOCYTE # 0.1 TH/MM3 (1.0-4.8); MEAN CELL VOLUME 94.1 FL (80.0-100.0); MEAN CORPUSCULAR HEMOGLOBIN 32.4 PG (27.0-34.0); MEAN CORPUSCULAR HGB CONC 34.4 % (32.0-36.0); MEAN PLATELET VOLUME 9.2 FL (7.0-11.0); MONO % 6.4 % (0.0-8.0); MONOCYTE # 0.6 TH/MM3 (0-0.9); NEUT % 91.3 % (16.0-70.0); PLATELET COUNT 218 TH/MM3 (150-450); RED BLOOD COUNT 2.47 MIL/MM3 (4.50-5.90); RED CELL DISTRIBUTION WIDTH 20.8 % (11.6-17.2); WHITE BLOOD COUNT 9.8 TH/MM3 (4.0-11.0)
[2018-02-22 07:03] LABS: ALBUMIN 1.8 GM/DL (3.4-5.0); ALKALINE PHOSPHATASE 149 U/L (45-117); ALT (GPT) 21 U/L (12-78); ANION GAP 9 MEQ/L (5-15); AST (GOT) 14 U/L (15-37); BICARBONATE 22.7 MEQ/L (21.0-32.0); BLOOD UREA NITROGEN 54 MG/DL (7-18); CALCIUM 7.2 MG/DL (8.5-10.1); CALCIUM-PROTEIN CORRECTED 9.3 MG/DL (8.5-10.1); CHLORIDE 115 MEQ/L (98-107); CREATININE 3.95 MG/DL (0.60-1.30); GLOMERULAR FILTRATION RATE 15 ML/MIN (>89); GLUCOSE,RANDOM 142 MG/DL (74-106); MAGNESIUM 2.2 MG/DL (1.5-2.5); PHOSPHORUS 2.3 MG/DL (2.5-4.9); RANDOM VANCOMYCIN 24.1 COMMENT; SODIUM (NA) 147 MEQ/L (136-145); TOTAL BILIRUBIN ADULT 0.3 MG/DL (0.2-1.0); TOTAL PROTEIN 3.6 GM/DL (6.4-8.2)
[2018-02-22] MEDS: ARTIFICIAL TEARS OPTH SOLN 15 ML BTL EACH EYE ×3 (08:00→23:34)
[2018-02-22] MEDS: CHLORHEXIDINE 0.12% (ORAL KIT) 15 ML CUP MT ×2 (08:29→19:06)
[2018-02-22] MEDS: CLOPIDOGREL 75 MG TAB PO (08:39)
[2018-02-22] MEDS: ASPIRIN 81 MG CHEW TAB CHEW (08:39)
[2018-02-22] MEDS: HEPARIN SODIUM - SQ 10,000 UNITS/ML VIAL SQ ×2 (08:39→21:05)
[2018-02-22] MEDS: DOCUSATE SODIUM 50 MG/SENNA 8.6 MG TAB PO ×2 (08:40→21:05)
[2018-02-22] MEDS: ALLOPURINOL 100 MG TAB PO (08:40)
[2018-02-22] MEDS: LANSOPRAZOLE SOLUTAB 30 MG TAB NG (08:40)
[2018-02-22] MEDS: FERROUS SULFATE 325 MG (65 MG ELEMENTAL IRON) TAB PO ×2 (08:40→17:56)
[2018-02-22] MEDS: SODIUM CHLORIDE 0.9% FLUSH 10 ML FLUSH IV FLUSH ×2 (08:41→21:00)
[2018-02-22] MEDS: POTASSIUM CHLOR 40 MEQ PREMIX 100 ML IV (11:24)
[2018-02-22] MEDS: DEXMEDETOMIDINE INJ 200 MCG in SODIUM CHLORIDE 0.9% INJ 50 ML IV ×2 (11:47→18:21)
[2018-02-22] MEDS: ALBUMIN 25% INJ 100 ML IV (13:51)
[2018-02-22] MEDS: METOPROLOL TARTRATE 50 MG TAB PO ×2 (13:51→21:05)
[2018-02-22] MEDS: FUROSEMIDE 100 MG/10 ML VIAL IV PUSH (15:56)
[2018-02-22] MEDS: CEFEPIME INJ 2,000 MG in SODIUM CHLORIDE 0.9% INJ 100 ML IV (17:56)
[2018-02-22] MEDS: TERAZOSIN HCL 5 MG CAP PO (21:05)
[2018-02-22] MEDS: DAPTOmycin INJ 500 MG in SODIUM CHLORIDE 0.9% INJ 100 ML IV (21:05)
[2018-02-23] MEDS: DEXMEDETOMIDINE INJ 200 MCG in SODIUM CHLORIDE 0.9% INJ 50 ML IV (04:03)
[2018-02-23] MEDS: HYDROCORTISONE SOD SUCCINATE 100 MG VIAL IV PUSH ×3 (04:03→20:48)
[2018-02-23] MEDS: INSULIN NovoLIN REGULAR SUPPLEMENTAL SCALE SQ ×2 (05:02→17:06)
[2018-02-23 06:32] LABS: AUTOMATED NEUTROPHIL # 8.2 TH/MM3 (1.8-7.7); BASOPHIL % 0.1 % (0.0-2.0); EOSINOPHIL % 9.7 % (0.0-4.0); HEMATOCRIT 25.8 % (39.0-51.0); HEMO FLAGS DIFF FINAL; HEMOGLOBIN 8.5 GM/DL (13.0-17.0); LYMPH % 1.1 % (9.0-44.0); LYMPHOCYTE # 0.1 TH/MM3 (1.0-4.8); MEAN CELL VOLUME 94.9 FL (80.0-100.0); MEAN CORPUSCULAR HEMOGLOBIN 31.3 PG (27.0-34.0); MONO % 6.3 % (0.0-8.0); MONOCYTE # 0.6 TH/MM3 (0-0.9); NEUT % 82.8 % (16.0-70.0); PLATELET COUNT 203 TH/MM3 (150-450); RED BLOOD COUNT 2.72 MIL/MM3 (4.50-5.90); RED CELL DISTRIBUTION WIDTH 20.3 % (11.6-17.2); WHITE BLOOD COUNT 9.9 TH/MM3 (4.0-11.0)
[2018-02-23 07:00] LABS: ALBUMIN 2.1 GM/DL (3.4-5.0); ANION GAP 10 MEQ/L (5-15); AST (GOT) 18 U/L (15-37); BICARBONATE 24.2 MEQ/L (21.0-32.0); BLOOD UREA NITROGEN 56 MG/DL (7-18); CALCIUM 7.7 MG/DL (8.5-10.1); CHLORIDE 114 MEQ/L (98-107); CREATININE 3.69 MG/DL (0.60-1.30); GLOMERULAR FILTRATION RATE 16 ML/MIN (>89); GLUCOSE,RANDOM 95 MG/DL (74-106); POTASSIUM 3.1 MEQ/L (3.5-5.1); SODIUM (NA) 148 MEQ/L (136-145)
[2018-02-23 07:01] LABS: ALT (GPT) 28 U/L (12-78)
[2018-02-23 07:03] LABS: ALKALINE PHOSPHATASE 137 U/L (45-117); RANDOM VANCOMYCIN 19.6 COMMENT; TOTAL BILIRUBIN ADULT 0.3 MG/DL (0.2-1.0); TOTAL PROTEIN 3.9 GM/DL (6.4-8.2)
[2018-02-23] MEDS: CHLORHEXIDINE 0.12% (ORAL KIT) 15 ML CUP MT ×2 (08:00→20:00)
[2018-02-23] MEDS: POTASSIUM CHLORIDE INJ 40 MEQ in SODIUM CHLORID 0.9% 500 ML INJ 500 ML IV-CENTRAL (08:25)
[2018-02-23] MEDS: DOCUSATE SODIUM 50 MG/SENNA 8.6 MG TAB PO ×2 (08:26→20:49)
[2018-02-23] MEDS: METOPROLOL TARTRATE 50 MG TAB PO ×2 (08:26→20:51)
[2018-02-23] MEDS: LANSOPRAZOLE SOLUTAB 30 MG TAB NG (08:26)
[2018-02-23] MEDS: ASPIRIN 81 MG CHEW TAB CHEW (08:26)
[2018-02-23] MEDS: CLOPIDOGREL 75 MG TAB PO (08:26)
[2018-02-23] MEDS: HEPARIN SODIUM - SQ 10,000 UNITS/ML VIAL SQ ×2 (08:26→20:50)
[2018-02-23] MEDS: ARTIFICIAL TEARS OPTH SOLN 15 ML BTL EACH EYE ×2 (08:27→16:23)
[2018-02-23] MEDS: SODIUM CHLORIDE 0.9% FLUSH 10 ML FLUSH IV FLUSH ×4 (08:27→20:49)
[2018-02-23] MEDS: FERROUS SULFATE 325 MG (65 MG ELEMENTAL IRON) TAB PO ×2 (08:27→16:46)
[2018-02-23] MEDS: ALLOPURINOL 100 MG TAB PO (09:00)
[2018-02-23] MEDS: ALBUMIN 25% INJ 100 ML IV (11:40)
[2018-02-23] MEDS: FUROSEMIDE 40 MG/4 ML VIAL IV PUSH (11:41)
[2018-02-23] MEDS: hydrALAZINE HCL 20 MG/ML VIAL IV PUSH ×2 (11:55→16:00)
[2018-02-23] MEDS: DEXTROSE 5% IN WATE 1000ML INJ 1,000 ML IV (16:22)
[2018-02-23] MEDS: CEFEPIME INJ 2,000 MG in SODIUM CHLORIDE 0.9% INJ 100 ML IV (16:46)
[2018-02-23] MEDS: POTASSIUM PHOSPHATE INJ 30 MMOL in SODIUM CHLOR 0.9% 250 ML INJ 250 ML IV (17:57)
[2018-02-23] MEDS: LABETALOL HCL 100 MG/20 ML VIAL IV PUSH (18:09)
[2018-02-23] MEDS: DAPTOmycin INJ 500 MG in SODIUM CHLORIDE 0.9% INJ 100 ML IV (20:47)
[2018-02-23] MEDS: TERAZOSIN HCL 5 MG CAP PO (20:49)
[2018-02-24] MEDS: ARTIFICIAL TEARS OPTH SOLN 15 ML BTL EACH EYE ×3 (00:23→16:00)
[2018-02-24] MEDS: CHLORHEXIDINE GLUCONATE 2 % 1 PACK (2 CLOTHS) TOP (04:00)
[2018-02-24 04:37] LABS: AUTOMATED NEUTROPHIL # 8.1 TH/MM3 (1.8-7.7); BASOPHIL % 0.2 % (0.0-2.0); EOSINOPHIL # 0.3 TH/MM3 (0-0.4); HEMATOCRIT 25.5 % (39.0-51.0); HEMO FLAGS DIFF FINAL; HEMOGLOBIN 8.4 GM/DL (13.0-17.0); LYMPH % 1.4 % (9.0-44.0); LYMPHOCYTE # 0.1 TH/MM3 (1.0-4.8); MEAN CELL VOLUME 94.4 FL (80.0-100.0); MEAN CORPUSCULAR HEMOGLOBIN 31.3 PG (27.0-34.0); MEAN CORPUSCULAR HGB CONC 33.2 % (32.0-36.0); MEAN PLATELET VOLUME 9.1 FL (7.0-11.0); MONO % 4.6 % (0.0-8.0); MONOCYTE # 0.4 TH/MM3 (0-0.9); NEUT % 90.8 % (16.0-70.0); PLATELET COUNT 210 TH/MM3 (150-450); RED CELL DISTRIBUTION WIDTH 20.4 % (11.6-17.2); WHITE BLOOD COUNT 8.9 TH/MM3 (4.0-11.0)
[2018-02-24 04:45] LABS: ALBUMIN 2.2 GM/DL (3.4-5.0); ANION GAP 8 MEQ/L (5-15); AST (GOT) 15 U/L (15-37); BICARBONATE 25.6 MEQ/L (21.0-32.0); BLOOD UREA NITROGEN 52 MG/DL (7-18); CALCIUM 7.6 MG/DL (8.5-10.1); CHLORIDE 114 MEQ/L (98-107); CREATININE 3.52 MG/DL (0.60-1.30); GLOMERULAR FILTRATION RATE 17 ML/MIN (>89); GLUCOSE,RANDOM 109 MG/DL (74-106); MAGNESIUM 1.9 MG/DL (1.5-2.5); POTASSIUM 3.4 MEQ/L (3.5-5.1); SODIUM (NA) 148 MEQ/L (136-145)
[2018-02-24 04:50] LABS: ALKALINE PHOSPHATASE 119 U/L (45-117); ALT (GPT) 23 U/L (12-78); PHOSPHORUS 2.9 MG/DL (2.5-4.9); TOTAL BILIRUBIN ADULT 0.5 MG/DL (0.2-1.0); TOTAL PROTEIN 4.3 GM/DL (6.4-8.2)
[2018-02-24] MEDS: INSULIN NovoLIN REGULAR SUPPLEMENTAL SCALE SQ ×4 (05:11→17:58)
[2018-02-24] MEDS ORDERED: PILL SPLITTER OTHER (07:00)
[2018-02-24] MEDS: CHLORHEXIDINE 0.12% (ORAL KIT) 15 ML CUP MT ×2 (08:00→19:48)
[2018-02-24] MEDS: METOPROLOL TARTRATE 50 MG TAB PO ×2 (08:41→19:50)
[2018-02-24] MEDS: ASPIRIN 81 MG CHEW TAB CHEW (08:42)
[2018-02-24] MEDS: FERROUS SULFATE 325 MG (65 MG ELEMENTAL IRON) TAB PO ×2 (08:42→16:41)
[2018-02-24] MEDS: LANSOPRAZOLE SOLUTAB 30 MG TAB NG (08:43)
[2018-02-24] MEDS: HYDROCORTISONE SOD SUCCINATE 100 MG VIAL IV PUSH ×2 (08:43→19:49)
[2018-02-24] MEDS: HEPARIN SODIUM - SQ 10,000 UNITS/ML VIAL SQ ×2 (08:44→19:51)
[2018-02-24] MEDS: DOCUSATE SODIUM 50 MG/SENNA 8.6 MG TAB PO ×2 (08:45→19:50)
[2018-02-24] MEDS: CLOPIDOGREL 75 MG TAB PO (08:45)
[2018-02-24] MEDS: SODIUM CHLORIDE 0.9% FLUSH 10 ML FLUSH IV FLUSH ×2 (08:48→19:48)
[2018-02-24] MEDS: ALLOPURINOL 100 MG TAB PO (09:00)
[2018-02-24] MEDS: POTASSIUM CHLORIDE INJ 40 MEQ in SODIUM CHLORID 0.9% 500 ML INJ 500 ML IV-CENTRAL (09:52)
[2018-02-24] MEDS: DEXTROSE 5% IN WATE 1000ML INJ 1,000 ML IV (11:15)
[2018-02-24] MEDS: hydrALAZINE HCL 20 MG/ML VIAL IV PUSH (14:31)
[2018-02-24] MEDS: CEFEPIME INJ 2,000 MG in SODIUM CHLORIDE 0.9% INJ 100 ML IV (16:42)
[2018-02-24] MEDS: TERAZOSIN HCL 5 MG CAP PO (19:49)
[2018-02-24] MEDS: ATORVASTATIN 10 MG TAB PO (19:50)
[2018-02-25] MEDS: ARTIFICIAL TEARS OPTH SOLN 15 ML BTL EACH EYE ×3 (00:32→16:00)
[2018-02-25] MEDS: CHLORHEXIDINE GLUCONATE 2 % 1 PACK (2 CLOTHS) TOP (04:00)
[2018-02-25] MEDS: INSULIN NovoLIN REGULAR SUPPLEMENTAL SCALE SQ ×4 (06:00→18:00)
[2018-02-25 07:25] LABS: AUTOMATED NEUTROPHIL # 9.6 TH/MM3 (1.8-7.7); BASOPHIL % 0.2 % (0.0-2.0); EOSINOPHIL # 1.8 TH/MM3 (0-0.4); EOSINOPHIL % 14.8 % (0.0-4.0); HEMATOCRIT 26.5 % (39.0-51.0); HEMO FLAGS DIFF FINAL; HEMOGLOBIN 8.6 GM/DL (13.0-17.0); LYMPH % 1.5 % (9.0-44.0); LYMPHOCYTE # 0.2 TH/MM3 (1.0-4.8); MEAN CELL VOLUME 94.7 FL (80.0-100.0); MEAN CORPUSCULAR HEMOGLOBIN 30.6 PG (27.0-34.0); MEAN CORPUSCULAR HGB CONC 32.3 % (32.0-36.0); MONO % 5.4 % (0.0-8.0); MONOCYTE # 0.7 TH/MM3 (0-0.9); NEUT % 78.1 % (16.0-70.0); PLATELET COUNT 238 TH/MM3 (150-450); RED CELL DISTRIBUTION WIDTH 20.5 % (11.6-17.2); WHITE BLOOD COUNT 12.2 TH/MM3 (4.0-11.0)
[2018-02-25 07:57] LABS: ALBUMIN 2.1 GM/DL (3.4-5.0); ANION GAP 11 MEQ/L (5-15); AST (GOT) 12 U/L (15-37); BICARBONATE 25.2 MEQ/L (21.0-32.0); BLOOD UREA NITROGEN 46 MG/DL (7-18); CALCIUM 7.8 MG/DL (8.5-10.1); CHLORIDE 113 MEQ/L (98-107); CREATININE 3.18 MG/DL (0.60-1.30); GLOMERULAR FILTRATION RATE 19 ML/MIN (>89); GLUCOSE,RANDOM 85 MG/DL (74-106); MAGNESIUM 1.8 MG/DL (1.5-2.5); POTASSIUM 3.2 MEQ/L (3.5-5.1); SODIUM (NA) 149 MEQ/L (136-145)
[2018-02-25] MEDS: CHLORHEXIDINE 0.12% (ORAL KIT) 15 ML CUP MT ×2 (08:00→20:00)
[2018-02-25 08:01] LABS: ALKALINE PHOSPHATASE 109 U/L (45-117); ALT (GPT) 21 U/L (12-78); PHOSPHORUS 2.4 MG/DL (2.5-4.9); TOTAL BILIRUBIN ADULT 0.5 MG/DL (0.2-1.0); TOTAL PROTEIN 4.3 GM/DL (6.4-8.2)
[2018-02-25] MEDS: FERROUS SULFATE 325 MG (65 MG ELEMENTAL IRON) TAB PO ×2 (08:46→18:00)
[2018-02-25] MEDS: LANSOPRAZOLE SOLUTAB 30 MG TAB NG (08:47)
[2018-02-25] MEDS: HEPARIN SODIUM - SQ 10,000 UNITS/ML VIAL SQ ×2 (08:47→21:43)
[2018-02-25] MEDS: ASPIRIN 81 MG CHEW TAB CHEW (08:47)
[2018-02-25] MEDS: HYDROCORTISONE SOD SUCCINATE 100 MG VIAL IV PUSH ×2 (08:47→21:44)
[2018-02-25] MEDS: CLOPIDOGREL 75 MG TAB PO (08:48)
[2018-02-25] MEDS: METOPROLOL TARTRATE 50 MG TAB PO ×2 (08:49→21:45)
[2018-02-25] MEDS: DOCUSATE SODIUM 50 MG/SENNA 8.6 MG TAB PO ×2 (08:49→21:44)
[2018-02-25] MEDS: SODIUM CHLORIDE 0.9% FLUSH 10 ML FLUSH IV FLUSH ×2 (08:49→21:44)
[2018-02-25] MEDS: ALLOPURINOL 100 MG TAB PO (09:00)
[2018-02-25] MEDS: LABETALOL HCL 100 MG/20 ML VIAL IV PUSH (15:19)
[2018-02-25] MEDS: DEXTROSE 5% IN WATE 1000ML INJ 1,000 ML IV (15:20)
[2018-02-25] MEDS ORDERED: cloNIDine HCL 0.1 MG TAB PO (15:45)
[2018-02-25] MEDS: POTASSIUM CHLORIDE INJ 30 MEQ in SODIUM CHLORIDE 0.9% INJ 100 ML IV-CENTRAL (17:09)
[2018-02-25] MEDS: CEFEPIME INJ 2,000 MG in SODIUM CHLORIDE 0.9% INJ 100 ML IV (18:46)
[2018-02-25] MEDS: POTASSIUM CHLORIDE 25 MEQ EFFERVESCENT TAB PO (21:43)
[2018-02-25] MEDS: ATORVASTATIN 10 MG TAB PO (21:44)
[2018-02-25] MEDS: DAPTOmycin INJ 500 MG in SODIUM CHLORIDE 0.9% INJ 100 ML IV (21:44)
[2018-02-25] MEDS: TERAZOSIN HCL 5 MG CAP PO (21:44)
[2018-02-26] MEDS: INSULIN NovoLIN REGULAR SUPPLEMENTAL SCALE SQ ×5 (00:05→23:58)
[2018-02-26 02:01] LABS: POTASSIUM 3.2 MEQ/L (3.5-5.1)
[2018-02-26] MEDS: CHLORHEXIDINE GLUCONATE 2 % 1 PACK (2 CLOTHS) TOP (03:11)
[2018-02-26] MEDS: DEXTROSE 5% IN WATE 1000ML INJ 1,000 ML IV ×2 (03:18→23:15)
[2018-02-26 05:33] LABS: ANION GAP 11 MEQ/L (5-15); BICARBONATE 24.5 MEQ/L (21.0-32.0); BLOOD UREA NITROGEN 43 MG/DL (7-18); CALCIUM 7.7 MG/DL (8.5-10.1); CHLORIDE 114 MEQ/L (98-107); CREATININE 2.91 MG/DL (0.60-1.30); GLOMERULAR FILTRATION RATE 21 ML/MIN (>89); GLUCOSE,RANDOM 92 MG/DL (74-106); POTASSIUM 3.2 MEQ/L (3.5-5.1); SODIUM (NA) 149 MEQ/L (136-145)
[2018-02-26] MEDS: ARTIFICIAL TEARS OPTH SOLN 15 ML BTL EACH EYE ×4 (08:00→23:42)
[2018-02-26] MEDS: CHLORHEXIDINE 0.12% (ORAL KIT) 15 ML CUP MT ×2 (08:00→20:00)
[2018-02-26] MEDS: FERROUS SULFATE 325 MG (65 MG ELEMENTAL IRON) TAB PO ×2 (09:00→18:00)
[2018-02-26] MEDS: ALLOPURINOL 100 MG TAB PO (09:00)
[2018-02-26] MEDS: POTASSIUM CHLORIDE 25 MEQ EFFERVESCENT TAB PO ×2 (09:00→21:00)
[2018-02-26] MEDS: ASPIRIN 81 MG CHEW TAB CHEW (09:00)
[2018-02-26] MEDS: DOCUSATE SODIUM 50 MG/SENNA 8.6 MG TAB PO ×2 (09:00→21:00)
[2018-02-26] MEDS: METOPROLOL TARTRATE 50 MG TAB PO ×2 (09:00→23:07)
[2018-02-26] MEDS: LANSOPRAZOLE SOLUTAB 30 MG TAB NG (09:00)
[2018-02-26] MEDS: CLOPIDOGREL 75 MG TAB PO (09:00)
[2018-02-26] MEDS: SODIUM CHLORIDE 0.9% FLUSH 10 ML FLUSH IV FLUSH ×2 (09:00→23:28)
[2018-02-26] MEDS: amLODIPine BESYLATE 5 MG TAB PO (09:30)
[2018-02-26] MEDS: HYDROCORTISONE SOD SUCCINATE 100 MG VIAL IV PUSH ×2 (10:42→23:28)
[2018-02-26] MEDS: POTASSIUM CHLOR 20 MEQ PREMIX 100 ML IV (10:43)
[2018-02-26] MEDS: HEPARIN SODIUM - SQ 10,000 UNITS/ML VIAL SQ ×2 (10:43→23:08)
[2018-02-26] MEDS: CEFEPIME INJ 2,000 MG in SODIUM CHLORIDE 0.9% INJ 100 ML IV (18:56)
[2018-02-26] MEDS: ATORVASTATIN 10 MG TAB PO (21:00)
[2018-02-26] MEDS: TERAZOSIN HCL 5 MG CAP PO (23:07)
[2018-02-27] MEDS: CHLORHEXIDINE GLUCONATE 2 % 1 PACK (2 CLOTHS) TOP (04:00)
[2018-02-27] MEDS: INSULIN NovoLIN REGULAR SUPPLEMENTAL SCALE SQ ×2 (05:22→12:00)
[2018-02-27] MEDS: CHLORHEXIDINE 0.12% (ORAL KIT) 15 ML CUP MT (08:00)
[2018-02-27] MEDS: ARTIFICIAL TEARS OPTH SOLN 15 ML BTL EACH EYE (08:30)
[2018-02-27] MEDS: SODIUM CHLORIDE 0.9% FLUSH 10 ML FLUSH IV FLUSH (08:30)
[2018-02-27] MEDS: HYDROCORTISONE SOD SUCCINATE 100 MG VIAL IV PUSH (08:34)
[2018-02-27] MEDS: ALLOPURINOL 100 MG TAB PO (08:35)
[2018-02-27] MEDS: LANSOPRAZOLE SOLUTAB 30 MG TAB NG (08:35)
[2018-02-27] MEDS: CLOPIDOGREL 75 MG TAB PO (08:35)
[2018-02-27] MEDS: POTASSIUM CHLORIDE 25 MEQ EFFERVESCENT TAB PO (08:36)
[2018-02-27] MEDS: METOPROLOL TARTRATE 50 MG TAB PO (08:36)
[2018-02-27] MEDS: FERROUS SULFATE 325 MG (65 MG ELEMENTAL IRON) TAB PO (08:36)
[2018-02-27] MEDS: amLODIPine BESYLATE 5 MG TAB PO (08:37)
[2018-02-27] MEDS: ASPIRIN 81 MG CHEW TAB CHEW (08:37)
[2018-02-27] MEDS: DOCUSATE SODIUM 50 MG/SENNA 8.6 MG TAB PO (08:37)
[2018-02-27] MEDS: HEPARIN SODIUM - SQ 10,000 UNITS/ML VIAL SQ (08:38)
[2018-02-27] MEDS: MORPHINE SULFATE 4 MG/ML INJ IV PUSH (09:59)
== END 2018-02-27 13:29 | disposition hospice, inpatient (51) | DRG 870 ==
LOC: NEPE 15:18 → N07A 02-25 19:14 → NEDA 18:21 → HIMN 22:00
PROC: 5A09357 Assistance with Respiratory Ventilation, Less than 24 Consecutive Hours, Continuous Positive Airway Pressure (ICD-10-PCS; principal; 2018-02-18)
PROC: 5A1955Z Respiratory Ventilation, Greater than 96 Consecutive Hours (ICD-10-PCS; 2018-02-18)
PROC: 0D9670Z Drainage of Stomach with Drainage Device, Via Natural or Artificial Opening (ICD-10-PCS; 2018-02-18)
PROC: 0BH17EZ Insertion of Endotracheal Airway into Trachea, Via Natural or Artificial Opening (ICD-10-PCS; 2018-02-18)
PROC: 02HV33Z Insertion of Infusion Device into Superior Vena Cava, Percutaneous Approach (ICD-10-PCS; 2018-02-18)
DX: A41.9 Sepsis, unspecified organism (principal); N17.0 Acute kidney failure with tubular necrosis; J69.0 Pneumonitis due to inhalation of food and vomit; R65.21 Severe sepsis with septic shock; G92 Toxic encephalopathy; J15.1 Pneumonia due to Pseudomonas; J96.01 Acute respiratory failure with hypoxia; J96.02 Acute respiratory failure with hypercapnia; E87.0 Hyperosmolality and hypernatremia; C84.40 Peripheral T-cell lymphoma, not elsewhere classified, unspecified site; E87.2 Acidosis; E46 Unspecified protein-calorie malnutrition; E87.1 Hypo-osmolality and hyponatremia; E44.0 Moderate protein-calorie malnutrition; T80.218A Other infection due to central venous catheter, initial encounter; I25.10 Atherosclerotic heart disease of native coronary artery without angina pectoris; F10.21 Alcohol dependence, in remission; E78.5 Hyperlipidemia, unspecified; N40.0 Benign prostatic hyperplasia without lower urinary tract symptoms; Z95.5 Presence of coronary angioplasty implant and graft; R13.10 Dysphagia, unspecified; F32.9 Major depressive disorder, single episode, unspecified; M10.9 Gout, unspecified; D50.9 Iron deficiency anemia, unspecified; Z80.7 Family history of other malignant neoplasms of lymphoid, hematopoietic and related tissues; Z87.891 Personal history of nicotine dependence; K59.00 Constipation, unspecified; I11.0 Hypertensive heart disease with heart failure; I50.9 Heart failure, unspecified; Z87.01 Personal history of pneumonia (recurrent); Z79.899 Other long term (current) drug therapy; Z92.21 Personal history of antineoplastic chemotherapy; Z92.3 Personal history of irradiation; Z66 Do not resuscitate; Z51.5 Encounter for palliative care; R62.7 Adult failure to thrive; R91.1 Solitary pulmonary nodule; R59.0 Localized enlarged lymph nodes; L98.9 Disorder of the skin and subcutaneous tissue, unspecified; N28.1 Cyst of kidney, acquired; D64.9 Anemia, unspecified; Z78.1 Physical restraint status; E87.6 Hypokalemia; E83.51 Hypocalcemia; D72.1 Eosinophilia; T36.8X5A Adverse effect of other systemic antibiotics, initial encounter; Y92.239 Unspecified place in hospital as the place of occurrence of the external cause
CPT/HCPCS: 31500; 36600; 70450; 71045; 76775; 80048; 80053; 80202; 81001; 82140; 82550; 82570; 82805; 82948; 83605; 83735; 83880; 84100; 84132; 84155; 84300; 84484; 84550; 85007; 85025; 85027; 85384; 85610; 85730; 86403; 87040; 87070; 87077; 87149-59; 87186; 87205; 87449; 87641; 87804; 87804-59; 92610-GN; 93005; 93306; 94002; 94003; 94150; 94640; 94664; 96365; 96368; 97110-GP; 97163-GP; 97530-GP; 99285-25